=== PATIENT | female | born 1945 | race Caucasian/White ===

== ENCOUNTER → 2020-07-07 15:04 | Outpatient (BNVA) | payer MEDICARE, SELFPAY | PROVIDERS: PCP Internal Medicine; Referring Provider Internal Medicine; Visit Provider Internal Medicine | DX: I26.99 Other pulmonary embolism without acute cor pulmonale (principal); Z51.81 Encounter for therapeutic drug level monitoring; Z79.01 Long term (current) use of anticoagulants | CPT/HCPCS: 85610; 99211 ==

== ENCOUNTER → 2020-07-14 12:13 | Outpatient (BNVA) | payer MEDICARE, SELFPAY | PROVIDERS: Visit Provider Internal Medicine | DX: I26.99 Other pulmonary embolism without acute cor pulmonale (principal); Z51.81 Encounter for therapeutic drug level monitoring; Z79.01 Long term (current) use of anticoagulants | CPT/HCPCS: Q3014 ==

== ENCOUNTER → 2020-08-11 12:03 | Outpatient (BNVA) | payer MEDICARE, SELFPAY | PROVIDERS: PCP Internal Medicine; Referring Provider Internal Medicine; Visit Provider Internal Medicine | DX: Z76.89 Persons encountering health services in other specified circumstances (principal) ==

== ENCOUNTER → 2020-08-18 13:28 | Outpatient (BNVA) | payer MEDICARE, SELFPAY | PROVIDERS: PCP Internal Medicine; Visit Provider Internal Medicine | DX: I26.99 Other pulmonary embolism without acute cor pulmonale (principal); Z51.81 Encounter for therapeutic drug level monitoring; Z79.01 Long term (current) use of anticoagulants | CPT/HCPCS: Q3014 ==

== ENCOUNTER → 2020-08-30 13:39 | Outpatient (BNVA) | payer MEDICARE, SELFPAY | PROVIDERS: PCP Internal Medicine; Visit Provider Internal Medicine | DX: I26.99 Other pulmonary embolism without acute cor pulmonale (principal); Z51.81 Encounter for therapeutic drug level monitoring; Z79.01 Long term (current) use of anticoagulants | CPT/HCPCS: Q3014 ==

== ENCOUNTER → 2020-09-08 13:20 | Outpatient (BNVA) | payer MEDICARE, SELFPAY | PROVIDERS: PCP Internal Medicine; Visit Provider Internal Medicine | DX: Z76.89 Persons encountering health services in other specified circumstances (principal) ==

== ENCOUNTER → 2020-09-15 12:20 | Outpatient (BNVA) | payer MEDICARE, SELFPAY | PROVIDERS: PCP Internal Medicine; Visit Provider Internal Medicine | DX: Z76.89 Persons encountering health services in other specified circumstances (principal) ==

== ENCOUNTER → 2020-09-22 13:15 | Outpatient (BNVA) | payer MEDICARE, SELFPAY | PROVIDERS: PCP Internal Medicine; Visit Provider Internal Medicine | DX: Z76.89 Persons encountering health services in other specified circumstances (principal) ==

== ENCOUNTER → 2020-10-03 12:44 | Outpatient (BNVA) | payer MEDICARE, SELFPAY | PROVIDERS: PCP Internal Medicine; Visit Provider Internal Medicine | DX: Z76.89 Persons encountering health services in other specified circumstances (principal) ==

== ENCOUNTER → 2020-10-12 12:15 | Outpatient (BNVA) | payer MEDICARE, SELFPAY | PROVIDERS: PCP Internal Medicine; Visit Provider Internal Medicine | DX: Z13.89 Encounter for screening for other disorder (principal) | CPT/HCPCS: Q3014 ==

== ENCOUNTER → 2020-10-18 15:21 | Outpatient (BNVA) | payer MEDICARE, SELFPAY | PROVIDERS: PCP Internal Medicine; Visit Provider Internal Medicine | DX: I26.99 Other pulmonary embolism without acute cor pulmonale (principal); Z79.01 Long term (current) use of anticoagulants; Z51.81 Encounter for therapeutic drug level monitoring | CPT/HCPCS: Q3014 ==

== ENCOUNTER 2020-10-19 10:59 | Outpatient (REF) | payer MEDICARE, SELFPAY ==
--- NOTE | 2020-10-19 11:48 | XR_ITS ---
EXAMINATION: XR ABDOMEN KUB CLINICAL INDICATION: Urinary tract infection COMPARISON: None TECHNIQUE: AP view of the abdomen. FINDINGS: The bowel gas pattern is normal with no evidence of ileus or obstruction. There is a moderate stool burden present throughout the colon. Multiple phleboliths are seen about the pelvis. No definite calculi seen overlying the region of the kidneys or ureters is noted. Psoas margins intact. There is partial sacralization left side of L5. XR/XR KUB IMPRESSION: No definite renal or ureteral calculi identified.
[2020-10-19 12:16] LABS: MANUAL DIFF FLAG NO
[2020-10-19 12:26] LABS: Basophils Percent Auto 0.7 % (0-2); Eosinophils Absolute Auto 0.3 X10*3/uL (0.0-0.4); Eosinophils Percent Auto 4.7 % (0-4); Hematocrit 40.2 % (37-47); Hemoglobin 13.2 g/dl (12.0-16.0); Imm Gran Abs Auto 0.02 X10*3/uL (0.00-0.03); Imm Gran Pct Auto 0.3 % (0.0-0.4); Lymphocytes Absolute Auto 1.9 X10*3/uL (1.2-4.9); Lymphocytes Percent Auto 31.2 % (20-40); Mean Corpuscular HGB Conc 32.8 g/dl (31.0-35.0); Mean Corpuscular Hemoglobin 30.4 pg (27.0-33.0); Mean Corpuscular Volume 92.6 fL (80-98); Mean Platelet Volume 10.8 fL (9.4-12.3); Monocytes Absolute Auto 0.6 X10*3/uL (0.1-1.2); Monocytes Percent Auto 10.4 % (2-11); Neutrophils Absolute Auto 3.1 X10*3/uL (2.0-8.3); Neutrophils Percent Auto 52.7 % (45-73); Platelet Count 368 X10*3/uL (160-400); Red Blood Count 4.34 X10*6/uL (4.20-5.50); Red Cell Distribution Width 13.2 % (11.0-16.0)
[2020-10-19 12:54] LABS: Glucose Urine UA NEG (NEG); Leukocyte Esterase Urine NEG (NEG); Nitrite Urine NEG (NEG); PH 7.5 (5.0-8.0); Specific Gravity - Urine 1.015 (1.005-1.025); Urine Blood NEG (NEG); Urine Ketones NEG (NEG); Urine Protein NEG (NEG-TRACE)
[2020-10-19 13:01] LABS: Alanine Aminotransferase 27 U/L (0-31); Albumin Level 4.1 g/dL (3.5-5.0); Alkaline Phosphatase 68 U/L (39-117); Anion Gap 11 (12-20); Aspartate Amino Transferase 31 U/L (5-31); Bilirubin Total 0.4 mg/dL (0.0-1.0); Blood Urea Nitrogen 15 mg/dL (9-16); Calcium 9.2 mg/dL (8.4-10.2); Carbon Dioxide 29 mmol/L (22-29); Chloride 105 mmol/L (96-108); Cholesterol 204 mg/dL; Estimated Glomerular Filt Rate > 60; Glucose Random 98 mg/dL (60-115); HDL Cholesterol 72 mg/dL; LDL Cholesterol Calculated 116 mg/dl; Potassium 4.4 mmol/l (3.3-5.1); Sodium 141 mmol/L (135-145); Triglycerides 80 mg/dL
[2020-10-19 13:06] LABS: Appearance Urine CLEAR; Color Urine YELLOW
[2020-10-19 13:24] LABS: Free T4 (Free Thyroxine) 0.85 ng/dL (0.71-1.85); Thyroid Stimulating Hormone 1.38 uIU/mL (0.32-4.0); Vitamin D 25-OH Total 50.1 ng/mL (>30)
[2020-10-19 13:26] LABS: RBC Urine 0-2 /HPF (0); WBC Urine 0-2 /HPF (0-4)
[2020-10-19 13:27] LABS: Mucus Urine TRACE /LPF; Squamous Epithelial Cell Urine TRACE /LPF
[2020-10-19 13:45] LABS: Folate > 20.0 ng/mL (> or = 4.0); Vitamin B12 832 pg/mL (200-900)
== END 2020-10-19 11:00 | disposition home or self-care (01) ==
LOC: HO.LAB 10:59
PROVIDERS: PCP Internal Medicine; Visit Provider Internal Medicine
DX: N39.0 Urinary tract infection, site not specified (principal); E78.00 Pure hypercholesterolemia, unspecified
CPT/HCPCS: 36415; 74018; 80053; 80061; 81001; 82306; 82607; 82746; 84439; 84443; 85025; 87086

== ENCOUNTER → 2020-10-27 11:52 | Outpatient (BNVA) | payer MEDICARE, SELFPAY | PROVIDERS: PCP Internal Medicine; Visit Provider Internal Medicine ==

== ENCOUNTER → 2020-11-03 14:08 | Outpatient (BNVA) | payer MEDICARE, SELFPAY | PROVIDERS: PCP Internal Medicine; Visit Provider Internal Medicine ==

== ENCOUNTER → 2020-11-10 11:49 | Outpatient (BNVA) | payer MEDICARE, SELFPAY | PROVIDERS: PCP Internal Medicine; Visit Provider Internal Medicine ==

== ENCOUNTER → 2020-11-17 12:44 | Outpatient (BNVA) | payer MEDICARE, SELFPAY | PROVIDERS: PCP Internal Medicine; Visit Provider Internal Medicine ==

== ENCOUNTER → 2020-11-24 12:09 | Outpatient (BNVA) | payer MEDICARE, SELFPAY | PROVIDERS: PCP Internal Medicine; Visit Provider Internal Medicine ==

== ENCOUNTER → 2020-12-01 13:51 | Outpatient (BNVA) | payer MEDICARE, SELFPAY | PROVIDERS: PCP Internal Medicine; Visit Provider Internal Medicine ==

== ENCOUNTER → 2020-12-08 12:01 | Outpatient (BNVA) | payer MEDICARE, SELFPAY | PROVIDERS: PCP Internal Medicine; Visit Provider Internal Medicine ==

== ENCOUNTER → 2020-12-15 11:47 | Outpatient (BNVA) | payer MEDICARE, SELFPAY | PROVIDERS: PCP Internal Medicine; Visit Provider Internal Medicine ==

== ENCOUNTER → 2020-12-22 14:17 | Outpatient (BNVA) | payer MEDICARE, SELFPAY | PROVIDERS: PCP Internal Medicine; Visit Provider Internal Medicine ==

== ENCOUNTER → 2020-12-26 13:56 | Outpatient (REF) | payer MEDICARE, SELFPAY | LOC: HO.SL 13:56 | PROVIDERS: Visit Provider Internal Medicine | DX: G47.33 Obstructive sleep apnea (adult) (pediatric) (principal) | CPT/HCPCS: 95806 ==

== ENCOUNTER → 2020-12-29 11:43 | Outpatient (BNVA) | payer MEDICARE, SELFPAY | PROVIDERS: PCP Internal Medicine; Visit Provider Internal Medicine ==

== ENCOUNTER → 2021-01-05 11:26 | Outpatient (BNVA) | payer MEDICARE, SELFPAY | PROVIDERS: PCP Internal Medicine; Visit Provider Internal Medicine ==

== ENCOUNTER → 2021-01-12 13:50 | Outpatient (BNVA) | payer MEDICARE, SELFPAY | PROVIDERS: PCP Internal Medicine; Visit Provider Internal Medicine ==

== ENCOUNTER → 2021-01-19 14:54 | Outpatient (BNVA) | payer MEDICARE, SELFPAY | PROVIDERS: PCP Internal Medicine; Visit Provider Internal Medicine ==

== ENCOUNTER → 2021-01-26 12:05 | Outpatient (BNVA) | payer MEDICARE, SELFPAY | PROVIDERS: PCP Internal Medicine; Visit Provider Internal Medicine ==

== ENCOUNTER → 2021-02-02 11:36 | Outpatient (BNVA) | payer MEDICARE, SELFPAY | PROVIDERS: PCP Internal Medicine; Visit Provider Internal Medicine ==

== ENCOUNTER → 2021-02-09 12:20 | Outpatient (BNVA) | payer MEDICARE, SELFPAY | PROVIDERS: PCP Internal Medicine; Visit Provider Internal Medicine | DX: I26.99 Other pulmonary embolism without acute cor pulmonale (principal); Z79.01 Long term (current) use of anticoagulants; Z51.81 Encounter for therapeutic drug level monitoring | CPT/HCPCS: 99211 ==

== ENCOUNTER → 2021-02-16 12:52 | Outpatient (BNVA) | payer MEDICARE, SELFPAY | PROVIDERS: PCP Internal Medicine; Visit Provider Internal Medicine ==

== ENCOUNTER → 2021-02-23 12:04 | Outpatient (BNVA) | payer MEDICARE, SELFPAY | PROVIDERS: PCP Internal Medicine; Visit Provider Internal Medicine ==

== ENCOUNTER → 2021-03-02 13:29 | Outpatient (BNVA) | payer MEDICARE, SELFPAY | PROVIDERS: PCP Internal Medicine; Visit Provider Internal Medicine ==

== ENCOUNTER → 2021-03-09 13:08 | Outpatient (BNVA) | payer MEDICARE, SELFPAY | PROVIDERS: PCP Internal Medicine; Visit Provider Internal Medicine ==

== ENCOUNTER → 2021-03-16 11:41 | Outpatient (BNVA) | payer MEDICARE, SELFPAY | PROVIDERS: PCP Internal Medicine; Visit Provider Internal Medicine ==

== ENCOUNTER → 2021-03-23 10:24 | Outpatient (BNVA) | payer MEDICARE, SELFPAY | PROVIDERS: PCP Internal Medicine; Visit Provider Internal Medicine ==

== ENCOUNTER → 2021-03-30 10:20 | Outpatient (BNVA) | payer MEDICARE, SELFPAY | PROVIDERS: PCP Internal Medicine; Visit Provider Internal Medicine ==

== ENCOUNTER → 2021-04-06 11:34 | Outpatient (BNVA) | payer MEDICARE, SELFPAY | PROVIDERS: PCP Internal Medicine; Visit Provider Internal Medicine ==

== ENCOUNTER → 2021-04-13 16:17 | Outpatient (BNVA) | payer MEDICARE, SELFPAY | PROVIDERS: PCP Internal Medicine; Visit Provider Internal Medicine ==

== ENCOUNTER → 2021-04-20 12:01 | Outpatient (BNVA) | payer MEDICARE, SELFPAY | PROVIDERS: PCP Internal Medicine; Visit Provider Internal Medicine ==

== ENCOUNTER → 2021-04-27 13:41 | Outpatient (BNVA) | payer MEDICARE, SELFPAY | PROVIDERS: PCP Internal Medicine; Visit Provider Internal Medicine ==

== ENCOUNTER → 2021-05-04 11:26 | Outpatient (BNVA) | payer MEDICARE, SELFPAY | PROVIDERS: PCP Internal Medicine; Visit Provider Internal Medicine ==

== ENCOUNTER 2021-05-10 16:25 | Outpatient (REF) | payer MEDICARE, SELFPAY ==
--- NOTE | ~2021-05-10 | XR_ITS ---
EXAMINATION: XR CHEST CLINICAL INFORMATION: Cough COMPARISON: June 09, 2008 TECHNIQUE: 2 views of the chest were obtained. FINDINGS: There is again noted be a region of disease within the lingula which appears be related to scarring and was seen back on study of June 09, 2008. There is a nodular density at the left cardiophrenic border which may represent an acute region of disease as well. There is also a portion of the right heart border obscured by density which appears to be within the right middle lobe. Heart normal size. No evidence of pulmonary edema. No pneumothorax or pleural effusion. There is a left C7 cervical rib. XR/XR chest 2V IMPRESSION: Chronic region of density within the lingula as well as what appears to be a new region of density at the left cardiophrenic angle as well as density within the right middle lobe which may be on the basis of atelectasis or pneumonitis.
[2021-05-10 17:14] LABS: MANUAL DIFF FLAG NO
[2021-05-10 17:34] LABS: Basophils Percent Auto 0.4 % (0-2); Eosinophils Absolute Auto 0.1 X10*3/uL (0.0-0.4); Eosinophils Percent Auto 0.9 % (0-4); Hematocrit 38.8 % (37-47); Hemoglobin 12.7 g/dl (12.0-16.0); Imm Gran Abs Auto 0.04 X10*3/uL (0.00-0.03); Imm Gran Pct Auto 0.4 % (0.0-0.4); Lymphocytes Absolute Auto 1.3 X10*3/uL (1.2-4.9); Lymphocytes Percent Auto 12.4 % (20-40); Mean Corpuscular HGB Conc 32.7 g/dl (31.0-35.0); Mean Corpuscular Hemoglobin 30.2 pg (27.0-33.0); Mean Corpuscular Volume 92.2 fL (80-98); Monocytes Absolute Auto 1.2 X10*3/uL (0.1-1.2); Monocytes Percent Auto 11.7 % (2-11); Neutrophils Absolute Auto 7.6 X10*3/uL (2.0-8.3); Neutrophils Percent Auto 74.2 % (45-73); Platelet Count 300 X10*3/uL (160-400); Red Blood Count 4.21 X10*6/uL (4.20-5.50); Red Cell Distribution Width 14.3 % (11.0-16.0); White Blood Count 10.3 X10*3/uL (4.8-10.8)
[2021-05-10 17:42] LABS: Alanine Aminotransferase 28 U/L (0-31); Albumin Level 4.1 g/dL (3.5-5.0); Alkaline Phosphatase 70 U/L (39-117); Anion Gap 11 (12-20); Aspartate Amino Transferase 26 U/L (5-31); Bilirubin Total 0.4 mg/dL (0.0-1.0); Blood Urea Nitrogen 13 mg/dL (9-16); Carbon Dioxide 29 mmol/L (22-29); Chloride 104 mmol/L (96-108); Estimated Glomerular Filt Rate > 60; Glucose Random 102 mg/dL (60-115); Potassium 3.6 mmol/L (3.3-5.1); Sodium 140 mmol/L (135-145); Total Protein 6.8 g/dL (6.5-8.0)
== END 2021-05-10 16:26 | disposition home or self-care (01) ==
LOC: HO.XRAY 16:25
PROVIDERS: PCP Internal Medicine; Visit Provider Nurse Practitioner Family
DX: R05 Cough (principal)
CPT/HCPCS: 36415; 71046; 80053; 85025

== ENCOUNTER → 2021-05-11 12:19 | Outpatient (BNVA) | payer MEDICARE, SELFPAY | PROVIDERS: PCP Internal Medicine; Visit Provider Internal Medicine | DX: I26.99 Other pulmonary embolism without acute cor pulmonale (principal) | CPT/HCPCS: Q3014 ==

== ENCOUNTER 2021-05-12 13:35 | Outpatient (REF) | payer MEDICARE, SELFPAY | END 2021-05-12 13:36 | disposition home or self-care (01) | LOC: HO.LAB 13:35 | PROVIDERS: PCP Internal Medicine; Visit Provider Internal Medicine | DX: Z20.822 Contact with and (suspected) exposure to COVID-19 (principal) | CPT/HCPCS: C9803; U0003; U0005 ==

== ENCOUNTER → 2021-05-15 13:47 | Outpatient (BNVA) | payer MEDICARE, SELFPAY | PROVIDERS: PCP Internal Medicine; Visit Provider Internal Medicine | DX: I26.99 Other pulmonary embolism without acute cor pulmonale (principal); Z79.01 Long term (current) use of anticoagulants; Z51.81 Encounter for therapeutic drug level monitoring | CPT/HCPCS: Q3014 ==

== ENCOUNTER → 2021-05-18 10:33 | Outpatient (BNVA) | payer MEDICARE, SELFPAY | PROVIDERS: PCP Internal Medicine; Visit Provider Internal Medicine | DX: I26.99 Other pulmonary embolism without acute cor pulmonale (principal) | CPT/HCPCS: Q3014 ==

== ENCOUNTER → 2021-05-25 11:18 | Outpatient (BNVA) | payer MEDICARE, SELFPAY | PROVIDERS: PCP Internal Medicine; Visit Provider Internal Medicine ==

== ENCOUNTER → 2021-06-01 11:40 | Outpatient (BNVA) | payer MEDICARE, SELFPAY | PROVIDERS: PCP Internal Medicine; Visit Provider Internal Medicine ==

== ENCOUNTER → 2021-06-08 12:01 | Outpatient (BNVA) | payer MEDICARE, SELFPAY | PROVIDERS: PCP Internal Medicine; Visit Provider Internal Medicine | DX: I26.99 Other pulmonary embolism without acute cor pulmonale (principal) | CPT/HCPCS: Q3014 ==

== ENCOUNTER → 2021-06-15 11:19 | Outpatient (BNVA) | payer MEDICARE, SELFPAY | PROVIDERS: PCP Internal Medicine; Visit Provider Internal Medicine ==

== ENCOUNTER → 2021-06-22 14:43 | Outpatient (BNVA) | payer MEDICARE, SELFPAY | PROVIDERS: PCP Internal Medicine; Visit Provider Internal Medicine ==

== ENCOUNTER → 2021-06-29 11:51 | Outpatient (BNVA) | payer MEDICARE, SELFPAY | PROVIDERS: PCP Internal Medicine; Visit Provider Internal Medicine ==

== ENCOUNTER → 2021-07-06 13:00 | Outpatient (BNVA) | payer MEDICARE, SELFPAY | PROVIDERS: PCP Internal Medicine; Visit Provider Internal Medicine ==

== ENCOUNTER → 2021-07-13 12:04 | Outpatient (BNVA) | payer MEDICARE, SELFPAY | PROVIDERS: PCP Internal Medicine; Visit Provider Internal Medicine | DX: I26.99 Other pulmonary embolism without acute cor pulmonale (principal); Z51.81 Encounter for therapeutic drug level monitoring; Z79.01 Long term (current) use of anticoagulants | CPT/HCPCS: 99211 ==

== ENCOUNTER → 2021-07-20 13:52 | Outpatient (BNVA) | payer MEDICARE, SELFPAY | PROVIDERS: PCP Internal Medicine; Visit Provider Internal Medicine ==

== ENCOUNTER → 2021-07-27 15:32 | Outpatient (BNVA) | payer MEDICARE, SELFPAY | PROVIDERS: PCP Internal Medicine; Visit Provider Internal Medicine | DX: I26.99 Other pulmonary embolism without acute cor pulmonale (principal) | CPT/HCPCS: Q3014 ==

== ENCOUNTER → 2021-08-03 14:59 | Outpatient (BNVA) | payer MEDICARE, SELFPAY | PROVIDERS: PCP Internal Medicine; Visit Provider Internal Medicine ==

== ENCOUNTER 2021-08-09 10:58 | Outpatient (REF) | payer MEDICARE, SELFPAY ==
[2021-08-09 11:23] LABS: MANUAL DIFF FLAG NO
[2021-08-09 11:53] LABS: Basophils Absolute Auto 0.1 X10*3/uL (0.0-0.2); Basophils Percent Auto 0.9 % (0-2); Eosinophils Absolute Auto 0.3 X10*3/uL (0.0-0.4); Eosinophils Percent Auto 4.8 % (0-4); Hematocrit 42.3 % (37.0-47.0); Hemoglobin 13.8 g/dl (12.0-16.0); Imm Gran Abs Auto 0.02 X10*3/uL (0.00-0.03); Imm Gran Pct Auto 0.4 % (0.0-0.4); Lymphocytes Absolute Auto 1.6 X10*3/uL (1.2-4.9); Lymphocytes Percent Auto 29.8 % (20-40); Mean Corpuscular HGB Conc 32.6 g/dl (31.0-35.0); Mean Corpuscular Hemoglobin 30.3 pg (27.0-33.0); Mean Corpuscular Volume 92.8 fL (80.0-98.0); Mean Platelet Volume 10.5 fL (9.4-12.3); Monocytes Absolute Auto 0.6 X10*3/uL (0.1-1.2); Monocytes Percent Auto 11.5 % (2-11); Neutrophils Absolute Auto 2.85 x10*3/uL (2.0-8.3); Neutrophils Percent Auto 52.6 % (45-73); Platelet Count 373 X10*3/uL (160-400); Red Blood Count 4.56 X10*6/uL (4.20-5.50); Red Cell Distribution Width 13.9 % (11.0-16.0); White Blood Count 5.4 X10*3/uL (4.8-10.8)
[2021-08-09 12:51] LABS: Alanine Aminotransferase 25 U/L (0-31); Albumin Level 4.2 g/dL (3.5-5.0); Alkaline Phosphatase 61 U/L (39-117); Anion Gap 13 (12-20); Aspartate Amino Transferase 26 U/L (5-31); Bilirubin Total 0.3 mg/dL (0.0-1.0); Blood Urea Nitrogen 16 mg/dL (9-16); Calcium 9.6 mg/dL (8.4-10.2); Carbon Dioxide 27 mmol/L (22-29); Chloride 108 mmol/L (96-108); Cholesterol 229 mg/dL; Estimated Glomerular Filt Rate > 60; Glucose Random 100 mg/dL (60-115); HDL Cholesterol 71 mg/dL; LDL Cholesterol Calculated 144 mg/dl; Potassium 4.6 mmol/L (3.3-5.1); Sodium 143 mmol/L (135-145); Total Protein 6.9 g/dL (6.5-8.0); Triglycerides 73 mg/dL
[2021-08-09 12:55] LABS: Free T4 (Free Thyroxine) 0.88 ng/dL (0.71-1.85); Thyroid Stimulating Hormone 1.63 uIU/mL (0.32-4.0); Vitamin D 25-OH Total 52.7 ng/mL (>30)
[2021-08-09 13:28] LABS: Folate > 20.0 ng/mL (> or = 4.0); Vitamin B12 786 pg/mL (200-900)
== END 2021-08-09 10:59 | disposition home or self-care (01) ==
LOC: HO.LAB 10:58
PROVIDERS: PCP Internal Medicine; Visit Provider Internal Medicine
DX: E78.00 Pure hypercholesterolemia, unspecified (principal)
CPT/HCPCS: 36415; 80053; 80061; 82306; 82607; 82746; 84439; 84443; 85025

== ENCOUNTER → 2021-08-10 14:11 | Outpatient (BNVA) | payer MEDICARE, SELFPAY | PROVIDERS: PCP Internal Medicine; Visit Provider Internal Medicine | DX: I26.99 Other pulmonary embolism without acute cor pulmonale (principal); Z51.81 Encounter for therapeutic drug level monitoring; Z79.01 Long term (current) use of anticoagulants | CPT/HCPCS: 85610; 99211 ==

== ENCOUNTER → 2021-08-17 13:43 | Outpatient (BNVA) | payer MEDICARE, SELFPAY | PROVIDERS: PCP Internal Medicine; Visit Provider Internal Medicine ==

== ENCOUNTER → 2021-08-24 15:28 | Outpatient (BNVA) | payer MEDICARE, SELFPAY | PROVIDERS: PCP Internal Medicine; Visit Provider Internal Medicine ==

== ENCOUNTER → 2021-08-29 13:29 | Outpatient (BNVA) | payer MEDICARE, SELFPAY | PROVIDERS: PCP Internal Medicine; Visit Provider Internal Medicine ==

== ENCOUNTER → 2021-09-07 11:50 | Outpatient (BNVA) | payer MEDICARE, SELFPAY | PROVIDERS: PCP Internal Medicine; Visit Provider Internal Medicine ==

== ENCOUNTER → 2021-09-15 11:59 | Outpatient (BNVA) | payer MEDICARE, SELFPAY | PROVIDERS: PCP Internal Medicine; Visit Provider Internal Medicine ==

== ENCOUNTER → 2021-09-21 11:50 | Outpatient (BNVA) | payer MEDICARE, SELFPAY | PROVIDERS: PCP Internal Medicine; Visit Provider Internal Medicine ==

== ENCOUNTER → 2021-09-28 13:24 | Outpatient (BNVA) | payer MEDICARE, SELFPAY | PROVIDERS: PCP Internal Medicine; Visit Provider Internal Medicine | DX: I26.99 Other pulmonary embolism without acute cor pulmonale (principal) | CPT/HCPCS: Q3014 ==

== ENCOUNTER → 2021-10-05 14:48 | Outpatient (BNVA) | payer MEDICARE, SELFPAY | PROVIDERS: PCP Internal Medicine; Visit Provider Internal Medicine ==

== ENCOUNTER → 2021-10-12 13:15 | Outpatient (BNVA) | payer MEDICARE, SELFPAY | PROVIDERS: PCP Internal Medicine; Visit Provider Internal Medicine ==

== ENCOUNTER → 2021-10-19 13:54 | Outpatient (BNVA) | payer MEDICARE, SELFPAY | PROVIDERS: PCP Internal Medicine; Visit Provider Internal Medicine ==

== ENCOUNTER → 2021-10-26 12:06 | Outpatient (BNVA) | payer MEDICARE, SELFPAY | PROVIDERS: PCP Internal Medicine; Visit Provider Internal Medicine ==

== ENCOUNTER → 2021-11-02 11:51 | Outpatient (BNVA) | payer MEDICARE, SELFPAY | PROVIDERS: PCP Internal Medicine; Visit Provider Internal Medicine ==

== ENCOUNTER → 2021-11-09 10:52 | Outpatient (BNVA) | payer MEDICARE, SELFPAY | PROVIDERS: PCP Internal Medicine; Visit Provider Internal Medicine | DX: Z13.89 Encounter for screening for other disorder (principal) ==

== ENCOUNTER → 2021-11-16 11:51 | Outpatient (BNVA) | payer MEDICARE, SELFPAY | PROVIDERS: PCP Internal Medicine; Visit Provider Internal Medicine | DX: Z13.89 Encounter for screening for other disorder (principal) ==

== ENCOUNTER → 2021-11-23 15:18 | Outpatient (BNVA) | payer MEDICARE, SELFPAY | PROVIDERS: PCP Internal Medicine; Visit Provider Internal Medicine | DX: I26.99 Other pulmonary embolism without acute cor pulmonale (principal); Z51.81 Encounter for therapeutic drug level monitoring; Z79.01 Long term (current) use of anticoagulants | CPT/HCPCS: Q3014 ==

== ENCOUNTER → 2021-11-30 12:09 | Outpatient (BNVA) | payer MEDICARE, SELFPAY | PROVIDERS: PCP Internal Medicine; Visit Provider Internal Medicine | DX: Z13.89 Encounter for screening for other disorder (principal) ==

== ENCOUNTER → 2021-12-07 10:43 | Outpatient (BNVA) | payer MEDICARE, SELFPAY | PROVIDERS: PCP Internal Medicine; Visit Provider Internal Medicine | DX: Z13.89 Encounter for screening for other disorder (principal) ==

== ENCOUNTER → 2021-12-14 10:20 | Outpatient (BNVA) | payer MEDICARE, SELFPAY | PROVIDERS: PCP Internal Medicine; Visit Provider Internal Medicine | DX: Z13.89 Encounter for screening for other disorder (principal) ==

== ENCOUNTER → 2021-12-21 10:51 | Outpatient (BNVA) | payer MEDICARE, SELFPAY | PROVIDERS: PCP Internal Medicine; Visit Provider Internal Medicine | DX: I26.99 Other pulmonary embolism without acute cor pulmonale (principal); Z79.01 Long term (current) use of anticoagulants; Z51.81 Encounter for therapeutic drug level monitoring | CPT/HCPCS: Q3014 ==

== ENCOUNTER → 2021-12-28 11:25 | Outpatient (BNVA) | payer MEDICARE, SELFPAY | PROVIDERS: PCP Internal Medicine; Visit Provider Internal Medicine | DX: Z13.89 Encounter for screening for other disorder (principal) ==

== ENCOUNTER → 2022-01-04 10:56 | Outpatient (BNVA) | payer MEDICARE, SELFPAY | PROVIDERS: PCP Internal Medicine; Visit Provider Internal Medicine | DX: Z13.89 Encounter for screening for other disorder (principal) ==

== ENCOUNTER → 2022-01-11 12:10 | Outpatient (BNVA) | payer MEDICARE, SELFPAY | PROVIDERS: PCP Internal Medicine; Visit Provider Internal Medicine | DX: Z13.89 Encounter for screening for other disorder (principal) ==

== ENCOUNTER → 2022-01-18 10:54 | Outpatient (BNVA) | payer MEDICARE, SELFPAY | PROVIDERS: PCP Internal Medicine; Visit Provider Internal Medicine | DX: Z13.89 Encounter for screening for other disorder (principal) ==

== ENCOUNTER → 2022-01-25 14:26 | Outpatient (BNVA) | payer MEDICARE, SELFPAY | PROVIDERS: PCP Internal Medicine; Visit Provider Internal Medicine | DX: Z13.89 Encounter for screening for other disorder (principal) ==

== ENCOUNTER → 2022-02-01 12:00 | Outpatient (BNVA) | payer MEDICARE, SELFPAY | PROVIDERS: PCP Internal Medicine; Visit Provider Internal Medicine | DX: I26.99 Other pulmonary embolism without acute cor pulmonale (principal); Z79.01 Long term (current) use of anticoagulants; Z51.81 Encounter for therapeutic drug level monitoring | CPT/HCPCS: Q3014 ==

== ENCOUNTER → 2022-02-05 20:41 | Outpatient (REF) | payer MEDICARE, SELFPAY | LOC: HO.SL 20:41 | PROVIDERS: Visit Provider Internal Medicine Critical Care Medicine | DX: G47.33 Obstructive sleep apnea (adult) (pediatric) (principal) | CPT/HCPCS: 95810 ==

== ENCOUNTER → 2022-02-08 15:09 | Outpatient (BNVA) | payer MEDICARE, SELFPAY | PROVIDERS: PCP Internal Medicine; Visit Provider Internal Medicine | DX: Z13.89 Encounter for screening for other disorder (principal) ==

== ENCOUNTER → 2022-02-15 14:14 | Outpatient (BNVA) | payer MEDICARE, SELFPAY | PROVIDERS: PCP Internal Medicine; Visit Provider Internal Medicine | DX: I26.99 Other pulmonary embolism without acute cor pulmonale (principal); Z79.01 Long term (current) use of anticoagulants; Z51.81 Encounter for therapeutic drug level monitoring | CPT/HCPCS: Q3014 ==

== ENCOUNTER → 2022-02-22 11:51 | Outpatient (BNVA) | payer MEDICARE, SELFPAY | PROVIDERS: PCP Internal Medicine; Visit Provider Internal Medicine | DX: I26.99 Other pulmonary embolism without acute cor pulmonale (principal); Z79.01 Long term (current) use of anticoagulants; Z51.81 Encounter for therapeutic drug level monitoring | CPT/HCPCS: Q3014 ==

== ENCOUNTER → 2022-03-01 11:47 | Outpatient (BNVA) | payer MEDICARE, SELFPAY | PROVIDERS: PCP Internal Medicine; Visit Provider Internal Medicine | DX: Z79.01 Long term (current) use of anticoagulants (principal) ==

== ENCOUNTER → 2022-03-08 14:08 | Outpatient (BNVA) | payer MEDICARE, SELFPAY | PROVIDERS: PCP Internal Medicine; Visit Provider Internal Medicine | DX: Z79.01 Long term (current) use of anticoagulants (principal) ==

== ENCOUNTER → 2022-03-29 10:44 | Outpatient (BNVA) | payer MEDICARE, SELFPAY | PROVIDERS: PCP Internal Medicine; Visit Provider Internal Medicine | DX: I26.99 Other pulmonary embolism without acute cor pulmonale (principal); Z79.01 Long term (current) use of anticoagulants; Z51.81 Encounter for therapeutic drug level monitoring | CPT/HCPCS: Q3014 ==

== ENCOUNTER → 2022-05-31 15:22 | Outpatient (BNVA) | payer MEDICARE, SELFPAY | PROVIDERS: PCP Internal Medicine; Visit Provider Internal Medicine | DX: I26.99 Other pulmonary embolism without acute cor pulmonale (principal); Z79.01 Long term (current) use of anticoagulants; Z51.81 Encounter for therapeutic drug level monitoring | CPT/HCPCS: Q3014 ==

== ENCOUNTER → 2022-06-05 11:28 | Outpatient (BNVA) | payer MEDICARE, SELFPAY | PROVIDERS: PCP Internal Medicine; Visit Provider Internal Medicine | DX: I26.99 Other pulmonary embolism without acute cor pulmonale (principal); Z79.01 Long term (current) use of anticoagulants; Z51.81 Encounter for therapeutic drug level monitoring | CPT/HCPCS: 99211 ==

== ENCOUNTER 2022-08-01 10:25 | Outpatient (REF) | payer MEDICARE, SELFPAY ==
[2022-08-01 10:44] LABS: MANUAL DIFF FLAG NO
[2022-08-01 10:48] LABS: Basophils Absolute Auto 0.1 X10*3/uL (0.0-0.2); Basophils Percent Auto 0.8 % (0-2); Eosinophils Absolute Auto 0.3 X10*3/uL (0.0-0.4); Eosinophils Percent Auto 3.8 % (0-4); Hematocrit 40.5 % (37.0-47.0); Hemoglobin 13.3 g/dl (12.0-16.0); Imm Gran Abs Auto 0.02 X10*3/uL (0.00-0.03); Imm Gran Pct Auto 0.3 % (0.0-0.4); Lymphocytes Absolute Auto 1.6 X10*3/uL (1.2-4.9); Lymphocytes Percent Auto 23.8 % (20-40); Mean Corpuscular HGB Conc 32.8 g/dl (31.0-35.0); Mean Corpuscular Hemoglobin 29.9 pg (27.0-33.0); Mean Platelet Volume 10.3 fL (9.4-12.3); Monocytes Absolute Auto 0.7 X10*3/uL (0.1-1.2); Monocytes Percent Auto 10.8 % (2-11); Neutrophils Absolute Auto 3.9 x10*3/uL (2.0-8.3); Neutrophils Percent Auto 60.5 % (45-73); Platelet Count 338 X10*3/uL (160-400); Red Blood Count 4.45 X10*6/uL (4.20-5.50); Red Cell Distribution Width 13.9 % (11.0-16.0); White Blood Count 6.5 X10*3/uL (4.8-10.8)
[2022-08-01 11:18] LABS: B Type Natriuretic Peptide 37 pg/mL (<100)
[2022-08-01 11:23] LABS: Alanine Aminotransferase 26 U/L (0-31); Albumin Level 4.1 g/dL (3.5-5.0); Alkaline Phosphatase 68 U/L (39-117); Anion Gap 15 (12-20); Aspartate Amino Transferase 30 U/L (5-31); Bilirubin Total 0.3 mg/dL (0.0-1.0); Blood Urea Nitrogen 20 mg/dL (9-16); Calcium 9.4 mg/dL (8.4-10.2); Carbon Dioxide 26 mmol/L (22-29); Chloride 107 mmol/L (96-108); Cholesterol 213 mg/dL; Estimated Glomerular Filt Rate > 60; Glucose Random 98 mg/dL (60-115); HDL Cholesterol 80 mg/dL; LDL Cholesterol Calculated 123 mg/dl; Potassium 4.3 mmol/L (3.3-5.1); Sodium 144 mmol/L (135-145); Total Protein 6.7 g/dL (6.5-8.0); Triglycerides 54 mg/dL
[2022-08-01 11:46] LABS: Free T4 (Free Thyroxine) 0.97 ng/dL (0.71-1.85); Thyroid Stimulating Hormone 2.01 uIU/mL (0.32-4.0); Vitamin D 25-OH Total 56.1 ng/mL (>30)
[2022-08-01 13:21] LABS: Folate > 20.0 ng/mL (> or = 4.0); Vitamin B12 917 pg/mL (200-900)
== END 2022-08-01 10:26 | disposition home or self-care (01) ==
LOC: HO.LAB 10:25
PROVIDERS: PCP Internal Medicine; Visit Provider Internal Medicine
DX: E78.00 Pure hypercholesterolemia, unspecified (principal)
CPT/HCPCS: 36415; 80053; 80061; 82306; 82607; 82746; 83880; 84439; 84443; 85025

== ENCOUNTER → 2022-08-16 12:55 | Outpatient (BNVA) | payer MEDICARE, SELFPAY | PROVIDERS: PCP Internal Medicine; Visit Provider Internal Medicine | DX: I26.99 Other pulmonary embolism without acute cor pulmonale (principal); Z79.01 Long term (current) use of anticoagulants; Z51.81 Encounter for therapeutic drug level monitoring | CPT/HCPCS: 85610; 99211 ==

== ENCOUNTER 2022-08-19 09:57 | Emergency (ER) | payer MEDICARE, SELFPAY ==
--- NOTE | ~2022-08-19 | US_ITS ---
EXAMINATION: US VENOUS ULTRASOUND WITH DOPPLER LOWER EXTREMITY, LEFT CLINICAL INFORMATION: Left lower extremity pain. History of deep venous thrombosis. COMPARISON: Report of previous study 04/05/11 TECHNIQUE: Ultrasound of the deep veins is performed from the hip to the calf with compression sonography and color and pulse Doppler assessment. Spectral analysis with color-flow imaging is performed. FINDINGS: There is normal venous compression and respiratory variation and augmented flow. The visualized common femoral vein, superficial femoral vein, profunda femoral vein, popliteal vein, and the trifurcation region shows no evidence of deep venous thrombosis. There is no significant popliteal fossa cyst. There is an approximately 1.7 cm area of increased echogenicity in the superficial tissues between the skin and the muscles anteriorly in the left calf. This is in an area of painful lump. There is no internal color signal. This is a nonspecific finding but could be related to edema or trauma. This does not appear to represent an aggressive process. This should be managed on the basis of the physical exam and history. If the patient's symptoms persist, followup ultrasound in 5 days 7 days might be of value to exclude proximal propagation from a non-visualized calf vein. US/US venous duplex LE LT IMPRESSION: No DVT demonstrated in the left lower extremity.
[2022-08-19 10:05] VITALS: BP 139/99; PULSE 77; RESP 18; O2SAT 98; BMI 19.8
--- NOTE | 2022-08-19 10:54 | ED_ITS ---
HPI - Extremity Problem General Chief complaint: Extremity Problem Stated complaint: DVT in L leg? Time Seen by Provider: 08/19/22 10:40 Source: patient Mode of arrival: ambulatory Limitations: no limitations History of Present Illness HPI Narrative: Patient is a 77-year-old female who presents to emergency department for evaluation of left leg pain. She states approximately 1 week ago she slightly bumped the leg against some common she developed significant swelling and bruising anteriorly over the pacheco. This was overall resolving. Two days ago she was walking in the grocery store when she developed severe pain to the left leg, and had significant tenderness when palpating over the area she previously injury. She states that she was able to go home, and rest. The pain has been constant since then, though it is overall improving. She is on Coumadin due to past history of DVT/PE, she reports checking her INR at home, with therapeutic levels, today INR was 2.0. She has been compliant with her medications. She however has concern for DVT as the pain that she experience was similar to prior pain experienced a DVT before she was on anticoagulation. Denies numbness or tingling to the extremity, denies cold sensation to the foot, denies any swelling of the calf or leg. Denies dizziness, lightheadedness, chest pain, palpitations, shortness of breath, difficulty breathing. Related Data Home Medications Medication Instructions Recorded Confirmed fluticasone 250 mcg-salmeterol 50 1 inh inhalation BID 10/17/20 03/29/22 mcg/dose blistr powdr for inhalation (Advair Diskus) montelukast 10 mg tablet 10 mg PO DAILY 10/17/20 03/29/22 (Singulair) levalbuterol HCl 0.63 mg/3 mL 0.63 mg PO Q4H PRN wheezing 05/15/21 03/29/22 solution for nebulization sumatriptan succinate 100 mg tablet 100 mg PO DAILY PRN headache 02/22/22 03/29/22 levalbuterol tartrate 45 2 puff inhalation Q4-6H 03/29/22 03/29/22 mcg/actuation aerosol inhaler nystatin 100,000 unit/mL oral 5 ml PO BID PRN 08/16/22 08/16/22 suspension Previous Rx's Medication Instructions Recorded risedronate 150 mg tablet (Actonel) See Rx Instructions PO .COMPLEX 08/18/20 PRN osteoporosis #1 tab omeprazole 20 mg capsule,delayed 20 mg PO DAILY #90 caps 08/14/21 release rosuvastatin 10 mg tablet 10 mg PO DAILY #90 tabs 08/14/21 quetiapine 25 mg tablet (Seroquel) 25 mg PO BEDTIME 90 days #90 tabs 03/06/22 warfarin 1 mg tablet (Jantoven) 1 mg PO DAILY #90 tabs 06/12/22 Allergies Allergy/AdvReac Type Severity Reaction Status Date / Time azithromycin Allergy Unknown fever Verified 08/16/22 12:59 levofloxacin Allergy Unknown LE pain Verified 08/16/22 12:59 and weakness nitrofurantoin Allergy Unknown fever,park Verified 08/16/22 12:59 Review of Systems Review of Systems: Constitutional: No weight loss, fever, chills, weakness or fatigue. Skin: No rash or itching. Cardiovascular: No chest pain, chest pressure or chest discomfort. No palpitations or pedal edema. Respiratory: No shortness of breath, cough or sputum production. Gastrointestinal: No anorexia, nausea, vomiting or diarrhea. No abdominal pain or blood in stool. Genitourinary: No burning micturition. No urinary frequency or incontinence. Musculoskeletal: No muscle pain, back pain, joint pain or stiffness. Positive left leg pain as noted in HPI Psychiatric: No depression or anxiety. Yes all other systems are reviewed and are negative [facility] Past Medical History Attestation statement: The following information was validated with the patient. Source: old records reviewed Medical History Bronchiectasis COPD (chronic obstructive pulmonary disease) Cough History of Pseudomonas pneumonia History of pulmonary embolism Hypercholesterolemia Migraine Obstructive sleep apnea Thyroid nodule Surgical History History of bronchoscopy History of cataract surgery History of colonoscopy Family History Family History Father No problems noted. Mother No problems noted. Sister No problems noted. Son No problems noted. Family/Other Heart disease Social History Social History Housing: House Alcohol intake: former Patient Tobacco Use Status: Never used Tobacco e-Cigarette/Vaping Use: Never Used Second Hand Smoke Exposure: Yes Advance Directives: Yes Advance Directives Information Provided: Yes Advance Directives on File: No service: No Current occupational status: retired Cognitive needs: No Hearing needs: No Vision needs: Yes Physical Exam Vital Signs: Vital Signs: Last Vital Signs Pulse 77 08/19/22 10:05 Resp 18 08/19/22 10:05 BP 139/99 H 08/19/22 10:05 Pulse Ox 98 08/19/22 10:05 O2 Del Method 08/19/22 10:05 BMI result Body Mass Index 19.8 Appearance: Alert.?Oriented to person, place and time. No acute distress.?Normal affect. Eyes: Pupils equal, round and reactive to light.? ENT: Pharynx normal.?? Neck: Normal inspection.? Neck supple.?? CVS: Heart sounds normal. Normal heart rate and rhythm.? Pulses normal.?? Respiratory: No respiratory distress.? Lung sounds clear to auscultation bilaterally?? Abdomen: Soft and non-tender. Normoactive bowel sounds. No pulsatile mass.?? Skin: Skin warm and dry.? Normal skin color.? Extremities: No lower extremity edema.? No calf ttp. Palpable lump to the left anterior leg, just lateral to the tibia, inferior to the knee. Neuro: Moves all extremities spontaneously. Sensation intact bilaterally. No focal neuro deficits. Ambulates with normal steady gait. Course Course Course Narrative: Area of palpable tenderness to leg seems most consistent with likely a resolving hematoma given history, from the some degree of superficial phlebitis. There is no erythema, warmth, swelling, palpable deformity. She is anticoagulated with a reported therapeutic INR, declining to have labs obtained while in the emergency department. Feels strongly about having ultrasound to exclude DVT, I did discuss significant low clinical suspicion for this, given no erythema, warmth, significant pain at his time, tachycardia, and she currently anticoagulated. However, she feels strongly about having ultrasound obtained at this time. Reevaluation(s) Reevaluation #1: Ultrasound reveals no evidence of DVT, I explained these findings to patient. There is an area of echogenicity in the superficial tissues corresponding to the painful lump, needed related to edema or trauma. Suspect resolving hematoma. Advised outpatient follow-up with her primary care provider within the next week. Reviewed worsening signs symptoms to return back to emergency department for. All questions were answered. Patient was discharged home in stable condition. MDM - Extremity (Nontraumatic) Medical Records Attestation: I reviewed the patient's medical records. Lab Data Attestation: I reviewed the patient's lab results. Imaging Data Venous US: Radiologist's impression: US/US venous duplex LE LT IMPRESSION: No DVT demonstrated in the left lower extremity. Discharge Plan Discharge Clinical Impression: Hematoma Patient Disposition: Home, Self-Care Instructions: Bone Bruise (ED) Additional Instructions: As we discussed the ultrasound is not reveal any blood clot to your leg. This is likely a resolving or improving hematoma, which can leave a palpable lump it can be painful and tender as he expressed. Please contact your primary care provider and arrange for a follow-up visit. May return back to emergency department any new or worsening symptoms or concerns. Prescriptions: No Action risedronate [Actonel] 150 mg tablet See Rx Instructions PO .COMPLEX PRN (Reason: osteoporosis) Qty: 1 0RF Rx Instructions: PO once a month PRN; rx Dr. Quiroz quetiapine [Seroquel] 25 mg tablet 25 mg PO BEDTIME 90 Days Qty: 90 3RF warfarin [Jantoven] 1 mg tablet 1 mg PO DAILY Qty: 90 3RF Protocol: Dose Management Condition: Saturday (Week One) Dose/Route: 3 mg Instruction: 3 x 1 mg tablets Condition: Saturday Dose/Route: 2 mg Instruction: 2 x 1 mg tablets Condition: Saturday Dose/Route: 3 mg Instruction: 3 x 1 mg tablets Condition: Saturday Dose/Route: 3 mg Instruction: 3 x 1 mg tablets Condition: Dose/Route: 3 mg Instruction: 3 x 1 mg tablets Condition: Saturday Dose/Route: 3 mg Instruction: 3 x 1 mg tablets Condition: Saturday Dose/Route: 3 mg Instruction: 3 x 1 mg tablets Condition: Saturday (Week Two) Dose/Route: 3 mg Instruction: 3 x 1 mg tablets Condition: Saturday Dose/Route: 2 mg Instruction: 2 x 1 mg tablets Condition: Saturday Dose/Route: 3 mg Instruction: 3 x 1 mg tablets Condition: Saturday Dose/Route: 3 mg Instruction: 3 x 1 mg tablets Condition: Dose/Route: 3 mg Instruction: 3 x 1 mg tablets Condition: Saturday Dose/Route: 3 mg Instruction: 3 x 1 mg tablets Condition: Saturday Dose/Route: 3 mg Instruction: 3 x 1 mg tablets Protocol Text: Adjustment Start Date: 08/16/22 INR Value: 2.4 INR Date: 08/16/22 Recheck Date: 08/23/22 Additional Instructions: cont reg dosing montelukast [Singulair] 10 mg tablet 10 mg PO DAILY fluticasone propion-salmeterol [Advair Diskus] 250-50 mcg/dose blister with device 1 inh inhalation BID omeprazole 20 mg capsule,delayed release(DR/EC) 20 mg PO DAILY Qty: 90 3RF rosuvastatin 10 mg tablet 10 mg PO DAILY Qty: 90 3RF levalbuterol HCl 0.63 mg/3 mL solution for nebulization 0.63 mg PO Q4H PRN (Reason: wheezing) nystatin 100,000 unit/mL suspension 5 ml PO BID PRN sumatriptan succinate 100 mg tablet 100 mg PO DAILY PRN (Reason: headache) levalbuterol tartrate 45 mcg/actuation HFA aerosol inhaler 2 puff inhalation Q4-6H Referrals: Po,Kelly Chacon MD [Primary Care Provider] - Interventions: ED Discharge Assessment Last Done: 08/19/22 14:48 Discharge Date/Time: 08/19/22 14:48
== END 2022-08-19 14:48 | disposition home or self-care (01) ==
PROVIDERS: Emergency Provider Emergency Medicine; PCP Internal Medicine
DX: S80.12XA Contusion of left lower leg, initial encounter (principal); R60.0 Localized edema; X58.XXXA Exposure to other specified factors, initial encounter; Y93.9 Activity, unspecified; Y92.9 Unspecified place or not applicable; Y99.9 Unspecified external cause status; Z79.899 Other long term (current) drug therapy
CPT/HCPCS: 93971; 99282; 99283

== ENCOUNTER → 2022-09-25 09:31 | Outpatient (BNVA) | payer MEDICARE, SELFPAY | PROVIDERS: PCP Internal Medicine; Visit Provider Internal Medicine | DX: Z79.01 Long term (current) use of anticoagulants (principal) ==

== ENCOUNTER → 2022-09-28 11:04 | Outpatient (BNVA) | payer MEDICARE, SELFPAY | PROVIDERS: PCP Internal Medicine; Visit Provider Internal Medicine | DX: Z79.01 Long term (current) use of anticoagulants (principal) ==

== ENCOUNTER → 2022-10-02 15:01 | Outpatient (BNVA) | payer MEDICARE, SELFPAY | PROVIDERS: PCP Internal Medicine; Visit Provider Internal Medicine | DX: Z79.01 Long term (current) use of anticoagulants (principal) ==

== ENCOUNTER → 2022-10-09 12:50 | Outpatient (BNVA) | payer MEDICARE, SELFPAY | PROVIDERS: PCP Internal Medicine; Visit Provider Internal Medicine | DX: Z79.01 Long term (current) use of anticoagulants (principal) ==

== ENCOUNTER → 2022-10-18 13:20 | Outpatient (BNVA) | payer MEDICARE, SELFPAY | PROVIDERS: PCP Internal Medicine; Visit Provider Internal Medicine | DX: Z79.01 Long term (current) use of anticoagulants (principal) ==

== ENCOUNTER → 2022-10-25 15:40 | Outpatient (BNVA) | payer MEDICARE, SELFPAY | PROVIDERS: PCP Internal Medicine; Visit Provider Internal Medicine | DX: Z79.01 Long term (current) use of anticoagulants (principal) ==

== ENCOUNTER → 2022-11-01 14:49 | Outpatient (BNVA) | payer MEDICARE, SELFPAY | PROVIDERS: PCP Internal Medicine; Visit Provider Internal Medicine | DX: Z79.01 Long term (current) use of anticoagulants (principal) ==

== ENCOUNTER → 2022-11-08 13:37 | Outpatient (BNVA) | payer MEDICARE, SELFPAY | PROVIDERS: PCP Internal Medicine; Visit Provider Internal Medicine | DX: Z79.01 Long term (current) use of anticoagulants (principal) ==

== ENCOUNTER → 2022-11-15 12:07 | Outpatient (BNVA) | payer MEDICARE, SELFPAY | PROVIDERS: PCP Internal Medicine; Visit Provider Internal Medicine | DX: Z79.01 Long term (current) use of anticoagulants (principal) ==

== ENCOUNTER → 2022-11-22 10:48 | Outpatient (BNVA) | payer MEDICARE, SELFPAY | PROVIDERS: PCP Internal Medicine; Visit Provider Internal Medicine | DX: Z79.01 Long term (current) use of anticoagulants (principal) ==

== ENCOUNTER → 2022-11-29 12:54 | Outpatient (BNVA) | payer MEDICARE, SELFPAY | PROVIDERS: PCP Internal Medicine; Visit Provider Internal Medicine | DX: Z79.01 Long term (current) use of anticoagulants (principal) ==

== ENCOUNTER → 2022-12-06 11:24 | Outpatient (BNVA) | payer MEDICARE, SELFPAY | PROVIDERS: PCP Internal Medicine; Visit Provider Internal Medicine | DX: Z79.01 Long term (current) use of anticoagulants (principal) ==

== ENCOUNTER → 2022-12-13 12:48 | Outpatient (BNVA) | payer MEDICARE, SELFPAY | PROVIDERS: PCP Internal Medicine; Visit Provider Internal Medicine | DX: Z79.01 Long term (current) use of anticoagulants (principal) ==

== ENCOUNTER → 2022-12-21 14:05 | Outpatient (BNVA) | payer MEDICARE, SELFPAY | PROVIDERS: PCP Internal Medicine; Visit Provider Internal Medicine | DX: Z79.01 Long term (current) use of anticoagulants (principal) ==

== ENCOUNTER → 2022-12-27 11:28 | Outpatient (BNVA) | payer MEDICARE, SELFPAY | PROVIDERS: PCP Internal Medicine; Visit Provider Internal Medicine | DX: Z79.01 Long term (current) use of anticoagulants (principal) ==

== ENCOUNTER → 2023-01-03 14:35 | Outpatient (BNVA) | payer MEDICARE, SELFPAY | PROVIDERS: PCP Internal Medicine; Visit Provider Internal Medicine | DX: Z79.01 Long term (current) use of anticoagulants (principal) ==

== ENCOUNTER → 2023-01-10 11:28 | Outpatient (BNVA) | payer MEDICARE, SELFPAY | PROVIDERS: PCP Internal Medicine; Visit Provider Internal Medicine ==

== ENCOUNTER → 2023-01-17 10:53 | Outpatient (BNVA) | payer MEDICARE, SELFPAY | PROVIDERS: PCP Internal Medicine; Visit Provider Internal Medicine ==

== ENCOUNTER → 2023-01-24 12:15 | Outpatient (BNVA) | payer MEDICARE, SELFPAY | PROVIDERS: PCP Internal Medicine; Visit Provider Internal Medicine ==

== ENCOUNTER → 2023-01-31 11:52 | Outpatient (BNVA) | payer MEDICARE, SELFPAY | PROVIDERS: PCP Internal Medicine; Visit Provider Internal Medicine ==

== ENCOUNTER → 2023-02-07 11:29 | Outpatient (BNVA) | payer MEDICARE, SELFPAY | PROVIDERS: PCP Internal Medicine; Visit Provider Internal Medicine ==

== ENCOUNTER → 2023-02-14 12:28 | Outpatient (BNVA) | payer MEDICARE, SELFPAY | PROVIDERS: PCP Internal Medicine; Visit Provider Internal Medicine ==

== ENCOUNTER → 2023-02-21 09:41 | Outpatient (BNVA) | payer MEDICARE, SELFPAY | PROVIDERS: PCP Internal Medicine; Visit Provider Internal Medicine ==

== ENCOUNTER → 2023-02-28 15:28 | Outpatient (BNVA) | payer MEDICARE, SELFPAY | PROVIDERS: PCP Internal Medicine; Visit Provider Internal Medicine ==

== ENCOUNTER → 2023-03-07 12:14 | Outpatient (BNVA) | payer MEDICARE, SELFPAY | PROVIDERS: PCP Internal Medicine; Visit Provider Internal Medicine ==

== ENCOUNTER → 2023-03-14 13:38 | Outpatient (BNVA) | payer MEDICARE, SELFPAY | PROVIDERS: PCP Internal Medicine; Visit Provider Internal Medicine ==

== ENCOUNTER → 2023-03-22 12:09 | Outpatient (BNVA) | payer MEDICARE, SELFPAY | PROVIDERS: PCP Internal Medicine; Visit Provider Internal Medicine ==

== ENCOUNTER → 2023-04-04 11:13 | Outpatient (BNVA) | payer MEDICARE, SELFPAY | PROVIDERS: PCP Internal Medicine; Visit Provider Internal Medicine ==

== ENCOUNTER → 2023-04-11 11:07 | Outpatient (BNVA) | payer MEDICARE, SELFPAY | PROVIDERS: PCP Internal Medicine; Visit Provider Internal Medicine ==

== ENCOUNTER → 2023-04-18 11:01 | Outpatient (BNVA) | payer MEDICARE, SELFPAY | PROVIDERS: PCP Internal Medicine; Visit Provider Internal Medicine ==

== ENCOUNTER → 2023-05-02 10:51 | Outpatient (BNVA) | payer MEDICARE, SELFPAY | PROVIDERS: PCP Internal Medicine; Visit Provider Internal Medicine ==

== ENCOUNTER → 2023-05-16 09:47 | Outpatient (BNVA) | payer MEDICARE, SELFPAY | PROVIDERS: PCP Internal Medicine; Visit Provider Internal Medicine ==

== ENCOUNTER → 2023-05-30 11:12 | Outpatient (BNVA) | payer MEDICARE, SELFPAY | PROVIDERS: PCP Internal Medicine; Visit Provider Internal Medicine ==

== ENCOUNTER → 2023-06-13 11:55 | Outpatient (BNVA) | payer MEDICARE, SELFPAY | PROVIDERS: PCP Internal Medicine; Visit Provider Internal Medicine ==

== ENCOUNTER → 2023-06-27 11:18 | Outpatient (BNVA) | payer MEDICARE, SELFPAY | PROVIDERS: PCP Internal Medicine; Visit Provider Internal Medicine ==

== ENCOUNTER → 2023-07-04 11:10 | Outpatient (BNVA) | payer MEDICARE, SELFPAY | PROVIDERS: PCP Internal Medicine; Visit Provider Internal Medicine ==

== ENCOUNTER 2023-07-16 09:47 | Outpatient (AMB) | payer MEDICARE, SELFPAY ==
[2023-07-16 10:12] VITALS: BP 116/70; PULSE 66; O2SAT 98; BMI 20.5
--- NOTE | 2023-07-16 10:12 | MHC.PC.OV ---
Vital Signs 07/16/23 10:12 Height 5 ft 3 in Weight 116 lb BMI 20.5 BP 116/70 Blood Pressure Location Lt brachial Position Sitting Pulse 66 Pulse Source Pulse Oximeter Pulse Oximetry (%) 98 Oxygen Delivery Method Room Air Intake Visit Reasons: Blood blister on lip, arthritis pain, back pain, infection on left finger Allergies azithromycin Allergy (Unknown, Verified 07/16/23 10:12) fever levofloxacin Allergy (Unknown, Verified 07/16/23 10:12) LE pain and weakness nitrofurantoin Allergy (Unknown, Verified 07/16/23 10:12) fever,park Medication List - Last Reconciled 07/16/23 by Kelly Chacon Po, albuterol sulfate 90 mcg/actuation 0 mcg inhalation amoxicillin 875 mg PO BID fluticasone propion-salmeterol 45-21 mcg/actuation (Advair HFA) inhalation levalbuterol HCl 0.63 mg PO Q4H PRN levalbuterol tartrate 45 mcg/actuation 2 puffs inhalation Q4-6H nystatin 5 mL PO BID PRN omeprazole 20 mg PO DAILY [physicians choice probiotic PO] quetiapine (Seroquel) 25 mg PO BEDTIME 90 days risedronate (Actonel) PO once a month PRN; rx Dr. Quiroz finishing next month rosuvastatin 10 mg PO DAILY sumatriptan succinate 100 mg PO DAILY PRN warfarin (Jantoven) 3 mg See Protocol PO DAILY 90 days Tobacco use date assessed: 07/16/23 Fall risk assessment: No Falls in past year Last assessed Fall Risk: 07/16/23 Dental Screening Dental Screen Date: 07/16/23 Did you have a dental visit in the last 12 months?: Yes Did you have a dental problem in the last 6 months where you did not have access to dental care?: No Was dental information given to patient?: Patient has dentist HPI arthritis pain HPI Details 78-year-old female with COPD hypercholesterolemia osteoporosis history of pulmonary embolism generalized anxiety disorder migraine coming in for follow-up. Last seen in November 2022. Bone density is up-to-date colonoscopy is up-to-date mammogram not done. since 01/2023 complains of low back pain deny fall or trauma - more at night but standiing up no radiation, no loss of control of BM or urination no fevers, R side more. 4 days ago cuticle infection L pinky finger discussed about vaccinations [facility] Medical History Bronchiectasis COPD (chronic obstructive pulmonary disease) Cough History of Pseudomonas pneumonia History of pulmonary embolism Hypercholesterolemia Migraine Obstructive sleep apnea Thyroid nodule Surgical History History of bronchoscopy History of cataract surgery History of colonoscopy Family History Father No problems noted. Mother No problems noted. Sister No problems noted. Son No problems noted. Family/Other Heart disease Social History Housing: House Alcohol intake: former Patient Tobacco Use Status: Never used Tobacco e-Cigarette/Vaping Use: Never Used Second Hand Smoke Exposure: Yes service: No Current occupational status: retired Cognitive needs: No Hearing needs: No Vision needs: Yes Questionnaire PHQ-9 Over the last 2 weeks, how often have you been bothered by any of the following problems? 1. Little interest or pleasure in doing things: not at all 2. Feeling down, depressed, or hopeless: not at all 3. Trouble falling or staying asleep, or sleeping too much: not at all 4. Feeling tired or having little energy: not at all 5. Poor appetite or overeating: not at all 6. Feeling bad about yourself - or that you are a failure or have let yourself or your family down: not at all 7. Trouble concentrating on things, such as reading the newspaper or watching television: not at all 8. Moving or speaking so slowly that other people could have noticed. Or the opposite - being so fidgety or restless that you have been moving around a lot more than usual: not at all 9. Thoughts that you would be better off or of hurting yourself in some way: not at all Total score: 0 Depression Screening Interpretation: Negative Depression Screening Done: Yes Source: Developed by Drs. Vincenzo Singh, Indira Dhaliwal, Pedro Luis Zhang and colleagues, with an educational lux from [employer]. Thrive Questionnaire Date Thrive assessed: 07/16/23 I am a: Patient What is your living situation today?: I have a steady place to live Within the past 12 months, did the food you bought not last and you didn't have the money to get more?: Never true Within the past 12 months, did you worry whether your food would run out before you got money to buy more?: Never true Do you have trouble paying for medicines?: No Do you have trouble getting transportation to medical appointments?: No Do you have trouble paying your heating and electricity bill?: No Do you have trouble taking care of your child, family member or friend?: No Do you have trouble with day-to-day activities such as bathing, preparing meals, shopping, managing finances, etc.?: No Are you currently unemployed and looking for a job?: No Are you interested in more education?: No Currently or been in a relationship where the following occur: no concerns reported AUDIT C Alcohol Use Questionnaire (AUDIT-C) 1. How often do you have a drink containing alcohol?: Never 2. How many drinks containing alcohol do you have on a typical day when you are drinking?: 1 or 2 (none) 3. How often do you have six or more drinks on one occasion?: Never Total Score: 0 Score Reviewed/Action Taken: Yes LISA-7 AMB Questionnaire LISA-7 Date LISA - 7 assessed: 11/15/22 Source: Developed by Drs. Vincenzo Singh, Indira Dhaliwal, Pedro Luis Zhang and colleagues, with an educational lux from [employer]. Physical exam (Primary Care) Vital Signs: Last Vital Signs Pulse 66 07/16/23 10:12 BP 116/70 07/16/23 10:12 Pulse Ox 98 07/16/23 10:12 Oxygen Delivery Method Room Air 07/16/23 10:12 BMI result Body Mass Index 20.5 Tobacco/Smoking Status: Tobacco use Status Tobacco use date assessed 07/16/23 07/16/23 10:17 Patient Tobacco Use Status Never used Tobacco 07/16/23 10:17 e-Cigarette/Vaping Use Never Used 07/16/23 10:17 PHQ-9: PHQ-9 Score PHQ-9: Total score 0 07/16/23 10:27 Depression Screening Interpretation: Negative Thrive Assessment: Date of Thrive Assessment Date Thrive assessed 07/16/23 07/16/23 10:17 Currently or been in a relationship where the following occur: no concerns reported Const General: alert; No acute distress Eyes Conjunctivae: conjunctivae normal Resp Auscultation: clear to auscultation bilaterally Cardio Rate: regular rate Rhythm: regular rhythm GI Inspection: Yes normal to inspection Extrem General: Yes normal to inspection and No edema Hand/finger images: 1. A finger base of nail redness 1 by half a cm Office Procedures Flu Questionnaire Does the patient have a severe egg allergy?: No Does the patient have severe life threatening allergies?: No Does the patient have a fever or illness today?: No Has the patient ever had Guillain-Rice Syndrome?: No Has the patient ever had any past reaction to a flu shot?: No Immunizations flu vacc [id number] 6mos up(PF) 60 mcg(15 mcgx4)/0.5 mL IM syringe Performing Provider: Kelly Ford MD Performing Location: [facility] Documented (not given) by: Rona Contreras CMA on 07/16/23 10:27 Reason Not Given: Patient Refused Assessment and Plan Assessment & Plan (1) Moderate persistent asthma: Code(s): J45.40 - Moderate persistent asthma, uncomplicated Plan: Continue with the inhaler patient on Advair as well as albuterol (2) History of pulmonary embolism: Comment: Two thousand eleven Code(s): Z86.711 - Personal history of pulmonary embolism Plan: Continue with anticoagulation with Coumadin (3) Hypercholesterolemia: Code(s): E78.00 - Pure hypercholesterolemia, unspecified Plan: Avoid fried foods, chicken skin, eggs, butter margarine, pastries and meat. Be it pork or beef they have a lot of cholesterol patient on rosuvastatin 10 (4) Osteoporosis: Comment: September 2018, September 2020, 2021 Code(s): M81.0 - Age-related osteoporosis without current pathological fracture Qualifiers: Osteoporosis type: age-related Presence of current pathological fracture: without current pathological fracture Qualified Code(s): M81.0 - Age-related osteoporosis without current pathological fracture Plan: on actonel DR. Quiroz monitoring bone density next year (5) Generalized anxiety disorder: Comment: decline counselling, doing good Code(s): F41.1 - Generalized anxiety disorder Plan: Continue with therapy (6) Low back pain: Code(s): M54.50 - Low back pain, unspecified Plan: decline PT, decline med x-ray requested discussed about Voltaren gel (7) Paronychia of finger: Code(s): L03.019 - Cellulitis of unspecified finger Plan: monitor and take antibiotic Orders: Orders Free T4 (Free Thyroxine) Today E78.00 - Pure hypercholesterolemia, unspecified Vitamin D 25-OH Total Today M81.0 - Age-related osteoporosis without current pathological fracture Influenza [id number] Immunization Today Z23 - Encounter for immunization Complete Blood Count Auto Diff Today E78.00 - Pure hypercholesterolemia, unspecified Comprehensive Met. Panel Today E78.00 - Pure hypercholesterolemia, unspecified Thyroid Stimulating Hormone Today E78.00 - Pure hypercholesterolemia, unspecified Vitamin B12 and Folate Today E78.00 - Pure hypercholesterolemia, unspecified Lipid Panel Today E78.00 - Pure hypercholesterolemia, unspecified XR lumbar spine 2-3V Today M54.50 - Low back pain, unspecified Medications: New amoxicillin 875 mg PO BID 14 tabs 0RF L03.019 - Cellulitis of unspecified finger Changed From risedronate (Actonel) PO once a month PRN; rx Dr. Quiroz 1 tab 0RF osteoporosis M81.0 - Age-related osteoporosis without current pathological fracture To risedronate (Actonel) PO once a month PRN; rx Dr. Quiroz finishing next month 1 tab 0RF osteoporosis M81.0 - Age-related osteoporosis without current pathological fracture Coding Level of Care Code Est Pt Level 4 (39543) Diagnoses Moderate persistent asthma J45.40 History of pulmonary embolism Z86.711 Hypercholesterolemia E78.00 Age-related osteoporosis without current pathological fracture M81.0 Osteoporosis type: age-related Presence of current pathological fracture: without current pathological fracture Generalized anxiety disorder F41.1 Low back pain M54.50 Paronychia of finger L03.019 Additional Codes PHQ-9 - 75890 - PHQ-9 Billing: ([id number])
== END 2023-07-16 10:54 | disposition home or self-care (01) ==
PROVIDERS: PCP Internal Medicine; Visit Provider Internal Medicine
DX: J45.40 Moderate persistent asthma, uncomplicated (principal); Z86.711 Personal history of pulmonary embolism; E78.00 Pure hypercholesterolemia, unspecified; M81.0 Age-related osteoporosis without current pathological fracture; F41.1 Generalized anxiety disorder; M54.50 Low back pain, unspecified; L03.019 Cellulitis of unspecified finger
CPT/HCPCS: 99214

== ENCOUNTER 2023-07-16 11:09 | Outpatient (REF) | payer MEDICARE, SELFPAY ==
--- NOTE | ~2023-07-16 | XR_ITS ---
EXAMINATION: XR LUMBOSACRAL SPINE CLINICAL INFORMATION: Low back pain. COMPARISON: None available. TECHNIQUE: Three views of the lumbosacral spine. FINDINGS: Suspect decreased bone mineral density, limiting sensitivity for subtle fracture. Vertebral body heights appear maintained. Moderate to severe disc degenerative change appears present at L5-S1, and mild to moderate disc degenerative change appears present throughout the remainder of the lumbar spine. No spondylolysis or spondylolisthesis is seen. Mild lumbar dextrocurvature. Facet degenerative changes of the lower lumbar spine. No lytic or sclerotic bony lesion is identified. The paraspinal soft tissues appear unremarkable. The aorta and iliac arteries are calcified. XR/XR lumbar spine 2-3V IMPRESSION: Degenerative change.
== END 2023-07-16 11:10 | disposition home or self-care (01) ==
LOC: HO.XRAY 11:09
PROVIDERS: PCP Internal Medicine; Visit Provider Internal Medicine
DX: M54.50 Low back pain, unspecified (principal)
CPT/HCPCS: 72100

== ENCOUNTER → 2023-07-18 12:01 | Outpatient (BNVA) | payer MEDICARE, SELFPAY | PROVIDERS: PCP Internal Medicine; Visit Provider Internal Medicine ==

== ENCOUNTER → 2023-07-25 11:39 | Outpatient (BNVA) | payer MEDICARE, SELFPAY | PROVIDERS: PCP Internal Medicine; Visit Provider Internal Medicine ==

== ENCOUNTER → 2023-08-01 15:28 | Outpatient (BNVA) | payer MEDICARE, SELFPAY | PROVIDERS: PCP Internal Medicine; Visit Provider Internal Medicine ==

== ENCOUNTER 2023-08-12 11:05 | Outpatient (REF) | payer MEDICARE, SELFPAY ==
[2023-08-12 11:23] LABS: MANUAL DIFF FLAG NO
[2023-08-12 11:40] LABS: Eosinophils Percent Auto 4.1 % (0-4); Hematocrit 40.4 % (37.0-47.0); Hemoglobin 13.2 g/dl (12.0-16.0); Imm Gran Abs Auto 0.01 X10*3/uL (0.00-0.03); Imm Gran Pct Auto 0.2 % (0.0-0.4); Lymphocytes Percent Auto 32.3 % (20-40); Mean Corpuscular HGB Conc 32.7 g/dl (31.0-35.0); Mean Corpuscular Hemoglobin 29.8 pg (27.0-33.0); Mean Corpuscular Volume 91.2 fL (80.0-98.0); Mean Platelet Volume 10.7 fL (9.4-12.3); Monocytes Percent Auto 11.6 % (2-11); Neutrophils Absolute Auto 2.6 x10*3/uL (2.0-8.3); Neutrophils Percent Auto 50.8 % (45-73); Platelet Count 322 X10*3/uL (160-400); Red Blood Count 4.43 X10*6/uL (4.20-5.50); Red Cell Distribution Width 13.6 % (11.0-16.0); White Blood Count 5.1 X10*3/uL (4.8-10.8)
[2023-08-12 11:41] LABS: Basophils Absolute Auto 0.1 X10*3/uL (0.0-0.2); Eosinophils Absolute Auto 0.2 X10*3/uL (0.0-0.4); Lymphocytes Absolute Auto 1.6 X10*3/uL (1.2-4.9); Monocytes Absolute Auto 0.6 X10*3/uL (0.1-1.2)
[2023-08-12 12:38] LABS: Alanine Aminotransferase 22 U/L (0-31); Alkaline Phosphatase 67 U/L (39-117); Anion Gap 12 (12-20); Aspartate Amino Transferase 27 U/L (5-31); Bilirubin Total 0.4 mg/dL (0.0-1.0); Blood Urea Nitrogen 14 mg/dL (9-16); Calcium 9.5 mg/dL (8.4-10.2); Carbon Dioxide 28 mmol/L (22-29); Chloride 106 mmol/L (96-108); Cholesterol 195 mg/dL (<200); Estimated Glomerular Filt Rate > 60; Free T4 (Free Thyroxine) 0.82 ng/dL (0.71-1.85); Glucose Random 98 mg/dL (60-115); HDL Cholesterol 72 mg/dL (>40); LDL Cholesterol Calculated 112 mg/dL (<100); Potassium 3.8 mmol/L (3.3-5.1); Sodium 142 mmol/L (135-145); Thyroid Stimulating Hormone 1.48 uIU/mL (0.32-4.0); Total Protein 7.2 g/dL (6.5-8.0); Triglycerides 56 mg/dL (<150); Vitamin D 25-OH Total 61.4 ng/mL (>30)
[2023-08-12 12:49] LABS: Folate 14.8 ng/mL (> or = 4.0); Vitamin B12 1113 pg/mL (200-900)
== END 2023-08-12 11:06 | disposition home or self-care (01) ==
LOC: HO.LAB 11:05
PROVIDERS: PCP Internal Medicine; Visit Provider Internal Medicine
DX: M81.0 Age-related osteoporosis without current pathological fracture (principal); E78.00 Pure hypercholesterolemia, unspecified
CPT/HCPCS: 36415; 80053; 80061; 82306; 82607; 82746; 84439; 84443; 85025

== ENCOUNTER → 2023-08-15 15:14 | Outpatient (BNVA) | payer MEDICARE, SELFPAY | PROVIDERS: PCP Internal Medicine; Visit Provider Internal Medicine ==

== ENCOUNTER → 2023-08-28 12:01 | Outpatient (BNVA) | payer MEDICARE, SELFPAY | PROVIDERS: PCP Internal Medicine; Visit Provider Internal Medicine ==

== ENCOUNTER → 2023-09-12 13:55 | Outpatient (BNVA) | payer MEDICARE, SELFPAY | PROVIDERS: PCP Internal Medicine; Visit Provider Internal Medicine | DX: I26.99 Other pulmonary embolism without acute cor pulmonale (principal); Z79.01 Long term (current) use of anticoagulants; Z51.81 Encounter for therapeutic drug level monitoring | CPT/HCPCS: 85610; 99212 ==

== ENCOUNTER → 2023-09-26 12:48 | Outpatient (BNVA) | payer MEDICARE, SELFPAY | PROVIDERS: PCP Internal Medicine; Visit Provider Internal Medicine ==

== ENCOUNTER → 2023-10-03 12:11 | Outpatient (BNVA) | payer MEDICARE, SELFPAY | PROVIDERS: PCP Internal Medicine; Visit Provider Internal Medicine ==

== ENCOUNTER → 2023-10-10 12:00 | Outpatient (BNVA) | payer MEDICARE, SELFPAY | PROVIDERS: PCP Internal Medicine; Visit Provider Internal Medicine ==

== ENCOUNTER → 2023-10-31 10:32 | Outpatient (BNVA) | payer MEDICARE, SELFPAY | PROVIDERS: PCP Internal Medicine; Visit Provider Internal Medicine ==

== ENCOUNTER 2023-11-14 09:18 | Outpatient (AMB) | payer MEDICARE, SELFPAY ==
[2023-11-14 09:24] VITALS: BP 126/72; PULSE 69; O2SAT 98; BMI 20.2
--- NOTE | 2023-11-14 09:24 | A.OFFPC_ITS ---
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 Required: No Allergies azithromycin Allergy (Unknown, Verified 11/14/23 09:24) fever levofloxacin Allergy (Unknown, Verified 11/14/23 09:24) LE pain and weakness nitrofurantoin Allergy (Unknown, Verified 11/14/23 09:24) fever,park Medication List - Last Reconciled 11/14/23 by Kelly Ford MD albuterol sulfate 90 mcg/actuation 0 mcg inhalation levalbuterol HCl 0.63 mg PO Q4H PRN levalbuterol tartrate 45 mcg/actuation 2 puffs inhalation Q4-6H omeprazole 20 mg PO DAILY [physicians choice probiotic PO] quetiapine (Seroquel) 25 mg PO BEDTIME 90 days rosuvastatin 10 mg PO DAILY sulfamethoxazole-trimethoprim 800-160 mg (Bactrim DS) 1 tab PO BID sumatriptan succinate 100 mg PO DAILY PRN warfarin (Jantoven) 3 mg See Protocol PO DAILY 90 days Tobacco use date assessed: 11/14/23 Fall risk assessment: No Falls in past year Last assessed Fall Risk: 11/14/23 Dental Screening Dental Screen Date: 11/14/23 HPI Finger Infection HPI Details 78-year-old female with a history of pul monary embolism asthma hypercholesterolemia generalized anxiety disorder coming in for concerns about nail infection. Patient has been given treatment and repeated treatment in comes in for the same problem. rammed R 4th and 5th finger on baseboard while cleaning and comes in with red and swelling PFSH Medical History Bronchiectasis COPD (chronic obstructive pulmonary disease) Cough History of Pseudomonas pneumonia History of pulmonary embolism Hypercholesterolemia Migraine Obstructive sleep apnea Thyroid nodule Surgical History History of bronchoscopy History of cataract surgery History of colonoscopy Family History Father No problems noted. Mother No problems noted. Sister No problems noted. Son No problems noted. Family/Other Heart disease Social History Housing: House Alcohol intake: former Patient Tobacco Use Status: Never used Tobacco e-Cigarette/Vaping Use: Never Used Second Hand Smoke Exposure: Yes service: No Current occupational status: retired Cognitive needs: No Hearing needs: No Vision needs: Yes Questionnaire PHQ-9 Over the last 2 weeks, how often have you been bothered by any of the following problems? 1. Little interest or pleasure in doing things: not at all 2. Feeling down, depressed, or hopeless: not at all 3. Trouble falling or staying asleep, or sleeping too much: not at all 4. Feeling tired or having little energy: not at all 5. Poor appetite or overeating: not at all 6. Feeling bad about yourself - or that you are a failure or have let yourself or your family down: not at all 7. Trouble concentrating on things, such as reading the newspaper or watching television: not at all 8. Moving or speaking so slowly that other people could have noticed. Or the opposite - being so fidgety or restless that you have been moving around a lot more than usual: not at all 9. Thoughts that you would be better off or of hurting yourself in some way: not at all Total score: 0 Depression Screening Interpretation: Negative Depression Screening Done: Yes Source: Developed by Drs. Vincenzo Singh, Indira Dhaliwal, Pedro Luis Zhang and colleagues, with an educational lux from [employer]. Thrive Questionnaire Date Thrive assessed: 11/14/23 I am a: Patient What is your living situation today?: I have a steady place to live Within the past 12 months, did the food you bought not last and you didn't have the money to get more?: Never true Within the past 12 months, did you worry whether your food would run out before you got money to buy more?: Never true Do you have trouble paying for medicines?: No Do you have trouble getting transportation to medical appointments?: No Do you have trouble paying your heating and electricity bill?: No Do you have trouble taking care of your child, family member or friend?: No Do you have trouble with day-to-day activities such as bathing, preparing meals, shopping, managing finances, etc.?: No Are you currently unemployed and looking for a job?: No Are you interested in more education?: No Please select the resources that you would like help with: None THRIVE Score: 0 AUDIT C Alcohol Use Questionnaire (AUDIT-C) 1. How often do you have a drink containing alcohol?: Never 2. How many drinks containing alcohol do you have on a typical day when you are drinking?: 1 or 2 (none) 3. How often do you have six or more drinks on one occasion?: Never Total Score: 0 Score Reviewed/Action Taken: Yes LISA-7 AMB Questionnaire LISA-7 Date LISA - 7 assessed: 11/14/23 Source: Developed by Drs. Vincenzo Singh, Indira Dhaliwal, Pedro Luis Zhang and colleagues, with an educational lux from [employer]. Physical exam (Primary Care) Vital Signs: Last Vital Signs Pulse 69 11/14/23 09:24 BP 126/72 11/14/23 09:24 Pulse Ox 98 11/14/23 09:24 Oxygen Delivery Method Room Air 11/14/23 09:24 BMI result Body Mass Index 20.2 Tobacco/Smoking Status: Tobacco use Status Tobacco use date assessed 11/14/23 11/14/23 09:25 Patient Tobacco Use Status Never used Tobacco 11/14/23 09:25 e-Cigarette/Vaping Use Never Used 11/14/23 09:25 PHQ-9: PHQ-9 Score PHQ-9: Total score 0 11/14/23 09:33 Depression Screening Interpretation: Negative Thrive Assessment: Date of Thrive Assessment Date Thrive assessed 11/14/23 11/14/23 09:25 Extrem Other: Redness on the base of the 3rd and 4th finger nail on the right hand Assessment and Plan Assessment & Plan (1) Paronychia of finger of right hand: Comment: Right 3rd and 4th finger Code(s): L03.011 - Cellulitis of right finger Plan: antibiotic sent. (2) Generalized anxiety disorder: Comment: decline counselling, doing good Code(s): F41.1 - Generalized anxiety disorder Plan: Seroquel prescription refilled (3) Vitamin B 12 deficiency: Code(s): E53.8 - Deficiency of other specified B group vitamins Plan: Patient's vitamin B12 was elevated and was advised to stop the medication and will need retesting. (4) History of pulmonary embolism: Comment: Two thousand eleven Code(s): Z86.711 - Personal history of pulmonary embolism Plan: Discussed that with the antibiotic the blood thinner Coumadin will be affected. Medications: Refilled quetiapine (Seroquel) 25 mg PO BEDTIME 90 tabs 3RF 90 days sulfamethoxazole-trimethoprim 800-160 mg (Bactrim DS) 1 tab PO BID 14 tabs 0RF L03.019 - Cellulitis of unspecified finger Coding Level of Care Code Est Pt Level 4 (94912) Diagnoses Paronychia of finger of right hand L03.011 Generalized anxiety disorder F41.1 Vitamin B 12 deficiency E53.8 History of pulmonary embolism Z86.711 Additional Codes PHQ-9 - 21745 - PHQ-9 Billing: ([id number])
== END 2023-11-14 09:44 | disposition home or self-care (01) ==
PROVIDERS: PCP Internal Medicine; Visit Provider Internal Medicine
DX: L03.011 Cellulitis of right finger (principal); F41.1 Generalized anxiety disorder; E53.8 Deficiency of other specified B group vitamins; Z86.711 Personal history of pulmonary embolism
CPT/HCPCS: 99214

== ENCOUNTER 2023-11-14 10:00 | Outpatient (REF) | payer MEDICARE, SELFPAY ==
[2023-11-14 10:27] LABS: MANUAL DIFF FLAG NO
[2023-11-14 10:48] LABS: Basophils Absolute Auto 0.1 X10*3/uL (0.0-0.2); Eosinophils Absolute Auto 0.3 X10*3/uL (0.0-0.4); Eosinophils Percent Auto 4.1 % (0-4); Hematocrit 41.1 % (37.0-47.0); Hemoglobin 13.7 g/dl (12.0-16.0); Imm Gran Abs Auto 0.03 X10*3/uL (0.00-0.03); Imm Gran Pct Auto 0.5 % (0.0-0.4); Lymphocytes Absolute Auto 1.7 X10*3/uL (1.2-4.9); Lymphocytes Percent Auto 27.1 % (20-40); Mean Corpuscular HGB Conc 33.3 g/dl (31.0-35.0); Mean Corpuscular Hemoglobin 30.4 pg (27.0-33.0); Mean Corpuscular Volume 91.1 fL (80.0-98.0); Mean Platelet Volume 10.7 fL (9.4-12.3); Monocytes Absolute Auto 0.7 X10*3/uL (0.1-1.2); Monocytes Percent Auto 11.4 % (2-11); Neutrophils Absolute Auto 3.4 x10*3/uL (2.0-8.3); Neutrophils Percent Auto 55.9 % (45-73); Platelet Count 337 X10*3/uL (160-400); Red Blood Count 4.51 X10*6/uL (4.20-5.50); Red Cell Distribution Width 13.5 % (11.0-16.0); White Blood Count 6.1 X10*3/uL (4.8-10.8)
[2023-11-14 11:33] LABS: Alanine Aminotransferase 27 U/L (0-31); Albumin Level 4.1 g/dL (3.5-5.0); Alkaline Phosphatase 61 U/L (39-117); Anion Gap 12 (12-20); Aspartate Amino Transferase 30 U/L (5-31); Bilirubin Total 0.3 mg/dL (0.0-1.0); Blood Urea Nitrogen 20 mg/dL (9-16); Calcium 9.6 mg/dL (8.4-10.2); Carbon Dioxide 27 mmol/L (22-29); Chloride 106 mmol/L (96-108); Cholesterol 195 mg/dL (<200); Estimated Glomerular Filt Rate > 60; Glucose Random 105 mg/dL (60-115); HDL Cholesterol 76 mg/dL (>40); LDL Cholesterol Calculated 101 mg/dL (<100); Potassium 3.9 mmol/L (3.3-5.1); Sodium 141 mmol/L (135-145); Total Protein 7.1 g/dL (6.5-8.0); Triglycerides 91 mg/dL (<150)
[2023-11-14 11:38] LABS: Free T4 (Free Thyroxine) 0.92 ng/dL (0.71-1.85); Thyroid Stimulating Hormone 1.35 uIU/mL (0.32-4.0)
[2023-11-14 11:47] LABS: Folate 10.6 ng/mL (> or = 4.0); Vitamin B12 737 pg/mL (200-900)
== END 2023-11-14 10:01 | disposition home or self-care (01) ==
LOC: HO.LAB 10:00
PROVIDERS: PCP Internal Medicine; Visit Provider Internal Medicine
DX: I26.99 Other pulmonary embolism without acute cor pulmonale (principal); E78.00 Pure hypercholesterolemia, unspecified; Z51.81 Encounter for therapeutic drug level monitoring; Z79.01 Long term (current) use of anticoagulants
CPT/HCPCS: 36415; 80053; 80061; 82607; 82746; 84439; 84443; 85025

== ENCOUNTER → 2023-11-19 09:51 | Outpatient (BNVA) | payer MEDICARE, SELFPAY | PROVIDERS: PCP Internal Medicine; Visit Provider Internal Medicine ==

== ENCOUNTER → 2023-11-28 14:03 | Outpatient (BNVA) | payer MEDICARE, SELFPAY | PROVIDERS: PCP Internal Medicine; Visit Provider Internal Medicine ==

== ENCOUNTER → 2023-12-03 10:55 | Outpatient (BNVA) | payer MEDICARE, SELFPAY | PROVIDERS: PCP Internal Medicine; Visit Provider Internal Medicine ==

== ENCOUNTER → 2023-12-10 11:21 | Outpatient (BNVA) | payer MEDICARE, SELFPAY | PROVIDERS: PCP Internal Medicine; Visit Provider Internal Medicine ==

== ENCOUNTER → 2023-12-24 10:27 | Outpatient (BNVA) | payer MEDICARE, SELFPAY | PROVIDERS: PCP Internal Medicine; Visit Provider Internal Medicine ==

== ENCOUNTER → 2024-01-07 10:39 | Outpatient (BNVA) | payer MEDICARE, SELFPAY | PROVIDERS: PCP Internal Medicine; Visit Provider Internal Medicine ==

== ENCOUNTER → 2024-01-21 11:49 | Outpatient (BNVA) | payer MEDICARE, SELFPAY | PROVIDERS: PCP Internal Medicine; Visit Provider Internal Medicine ==

== ENCOUNTER → 2024-02-04 13:30 | Outpatient (BNVA) | payer MEDICARE, SELFPAY | PROVIDERS: PCP Internal Medicine; Visit Provider Internal Medicine ==

== ENCOUNTER → 2024-02-18 10:53 | Outpatient (BNVA) | payer MEDICARE, SELFPAY | PROVIDERS: PCP Internal Medicine; Visit Provider Internal Medicine ==

== ENCOUNTER → 2024-03-03 14:19 | Outpatient (BNVA) | payer MEDICARE, SELFPAY | PROVIDERS: PCP Internal Medicine; Visit Provider Internal Medicine ==

== ENCOUNTER → 2024-03-17 11:08 | Outpatient (BNVA) | payer MEDICARE, SELFPAY | PROVIDERS: PCP Internal Medicine; Visit Provider Internal Medicine ==

== ENCOUNTER → 2024-03-31 15:46 | Outpatient (BNVA) | payer MEDICARE, SELFPAY | PROVIDERS: PCP Internal Medicine; Visit Provider Internal Medicine ==

== ENCOUNTER → 2024-04-14 14:35 | Outpatient (BNVA) | payer MEDICARE, SELFPAY | PROVIDERS: PCP Internal Medicine; Visit Provider Internal Medicine ==

== ENCOUNTER 2024-04-21 11:26 | Outpatient (AMB) | payer MEDICARE, SELFPAY ==
[2024-04-21 11:28] VITALS: BP 130/72; PULSE 71; O2SAT 96; BMI 20.2
--- NOTE | 2024-04-21 11:28 | MHC.PC.OV ---
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 Required: No Allergies azithromycin Allergy (Unknown, Verified 04/21/24 11:28) fever levofloxacin Allergy (Unknown, Verified 04/21/24 11:28) LE pain and weakness nitrofurantoin Allergy (Unknown, Verified 04/21/24 11:28) fever,park Medication List - Last Reconciled 04/21/24 by Kelly Ford MD albuterol sulfate 90 mcg/actuation 0 mcg inhalation fluticasone propion-salmeterol 45-21 mcg/actuation (Advair HFA) inhalation levalbuterol HCl 0.63 mg PO Q4H PRN levalbuterol tartrate 45 mcg/actuation 2 puffs inhalation Q4-6H omeprazole 20 mg PO DAILY [physicians choice probiotic PO] quetiapine (Seroquel) 25 mg PO BEDTIME 90 days rosuvastatin 10 mg PO DAILY sumatriptan succinate 100 mg PO DAILY PRN tramadol 50 mg PO BEDTIME warfarin (Jantoven) 3 mg See Protocol PO DAILY 90 days Tobacco use date assessed: 11/14/23 Fall risk assessment: No Falls in past year Last assessed Fall Risk: 04/21/24 Dental Screening Dental Screen Date: 11/14/23 HPI Back Pain HPI Details 78-year-old female with COPD hypercholesterolemia history of pulmonary embolism generalized anxiety disorder asthma coming in for follow-up. Last seen in November 2023. on advair- went on singulair tab occ. complains of pain lower back with states R big toe numbness , complains of pain a lot. l PFSH Medical History Bronchiectasis COPD (chronic obstructive pulmonary disease) Cough History of Pseudomonas pneumonia History of pulmonary embolism Hypercholesterolemia Migraine Obstructive sleep apnea Thyroid nodule Surgical History History of bronchoscopy History of cataract surgery History of colonoscopy Family History Father No problems noted. Mother No problems noted. Sister No problems noted. Son No problems noted. Family/Other Heart disease Social History Housing: House Alcohol intake: former Patient Tobacco Use Status: Never used Tobacco e-Cigarette/Vaping Use: Never Used Second Hand Smoke Exposure: Yes service: No Current occupational status: retired Cognitive needs: No Hearing needs: No Vision needs: Yes Questionnaire Thrive Questionnaire Date Thrive assessed: 11/14/23 AUDIT C Alcohol Use Questionnaire (AUDIT-C) 1. How often do you have a drink containing alcohol?: Never 2. How many drinks containing alcohol do you have on a typical day when you are drinking?: 1 or 2 (none) 3. How often do you have six or more drinks on one occasion?: Never Total Score: 0 Score Reviewed/Action Taken: Yes LISA-7 AMB Questionnaire LISA-7 Date LISA - 7 assessed: 11/14/23 Source: Developed by Drs. Vincenzo Singh, Indira Dhaliwal, Pedro Luis Zhang and colleagues, with an educational lux from [employer]. Physical exam (Primary Care) Vital Signs: Last Vital Signs Pulse 71 04/21/24 11:28 BP 130/72 04/21/24 11:28 Pulse Ox 96 04/21/24 11:28 Oxygen Delivery Method Room Air 04/21/24 11:28 BMI result Body Mass Index 20.2 Tobacco/Smoking Status: Tobacco use Status Tobacco use date assessed 11/14/23 04/21/24 11:29 Patient Tobacco Use Status Never used Tobacco 04/21/24 11:29 e-Cigarette/Vaping Use Never Used 04/21/24 11:29 Thrive Assessment: Date of Thrive Assessment Date Thrive assessed 11/14/23 04/21/24 11:29 Const General: alert; No acute distress Eyes Conjunctivae: conjunctivae normal Resp Auscultation: clear to auscultation bilaterally Cardio Rate: regular rate Rhythm: regular rhythm GI Inspection: Yes normal to inspection Extrem General: Yes normal to inspection and No edema Assessment and Plan Assessment & Plan (1) Hypercholesterolemia: Code(s): E78.00 - Pure hypercholesterolemia, unspecified Plan: Avoid fried foods, chicken skin, eggs, butter margarine, pastries and meat. Be it pork or beef they have a lot of cholesterol LDL goal of less than 130 and triglyceride of less than 150 on rosuvastatin 11/26/2023 blood work (2) COPD (chronic obstructive pulmonary disease): Code(s): J44.9 - Chronic obstructive pulmonary disease, unspecified Qualifiers: COPD type: emphysema Emphysema type: unspecified Qualified Code(s): J43.9 - Emphysema, unspecified Plan: Patient on albuterol inhaler and Advair and reminded about rinsing mouth after using them (3) History of pulmonary embolism: Comment: Two thousand eleven Code(s): Z86.711 - Personal history of pulmonary embolism Plan: Continue with anticoagulation with Coumadin (4) Generalized anxiety disorder: Comment: decline counselling, doing good Code(s): F41.1 - Generalized anxiety disorder Plan: On Seroquel to help with sleep. Stable Orders: Orders XR sacroiliac joint 1-2V Today M54.50 - Low back pain, unspecified PT Evaluation and Treatment Today M54.50 - Low back pain, unspecified XR lumbar spine 2-3V Today M54.50 - Low back pain, unspecified Medications: New tramadol 50 mg PO BEDTIME 7 tabs 0RF M54.50 - Low back pain, unspecified Coding Level of Care Code Est Pt Level 4 (78840) Diagnoses Hypercholesterolemia E78.00 Pulmonary emphysema, unspecified emphysema type J43.9 COPD type: emphysema Emphysema type: unspecified History of pulmonary embolism Z86.711 Generalized anxiety disorder F41.1
== END 2024-04-21 12:01 | disposition home or self-care (01) ==
PROVIDERS: PCP Internal Medicine; Visit Provider Internal Medicine
DX: E78.00 Pure hypercholesterolemia, unspecified (principal); J43.9 Emphysema, unspecified; Z86.711 Personal history of pulmonary embolism; F41.1 Generalized anxiety disorder
CPT/HCPCS: 99214

== ENCOUNTER 2024-04-21 12:09 | Outpatient (REF) | payer MEDICARE, SELFPAY ==
--- NOTE | ~2024-04-21 | XR_ITS ---
EXAMINATION: XR LUMBAR SPINE XR SACROILIAC JOINTS CLINICAL INDICATION: Low back pain. COMPARISON: 07/16/2023 lumbar spine. TECHNIQUE: 3 views of the sacroiliac joints. 3 views of the lumbar spine. FINDINGS: LUMBAR SPINE: Diffuse demineralization. Dextroscoliosis of the lumbar spine. Facet arthritis in the mid to lower lumbar spine. Atherosclerotic aortoiliac calcifications. Multilevel lumbar spondylosis. Moderate to marked loss of disc space height L5-S1. Mild-moderate degenerative changes with loss of disc space height in the remainder of the lumbar spine. SACROILIAC JOINTS: Diffuse demineralization. Moderate degenerative changes in the bilateral sacroiliac joints. Degenerative changes on limited views of the bilateral hips. XR/XR lumbar spine 2-3V IMPRESSION: 1. Moderate to marked degenerative disc disease L5-S1. 2. Facet arthritis in the mid to lower lumbar spine. 3. Mild degenerative changes in the bilateral sacroiliac joints. This study was presented today May 06, 2024 for interpretation. Stat results provided at this time as requested by referring provider.
--- NOTE | ~2024-04-21 | XR_ITS ---
EXAMINATION: XR LUMBAR SPINE XR SACROILIAC JOINTS CLINICAL INDICATION: Low back pain. COMPARISON: 07/16/2023 lumbar spine. TECHNIQUE: 3 views of the sacroiliac joints. 3 views of the lumbar spine. FINDINGS: LUMBAR SPINE: Diffuse demineralization. Dextroscoliosis of the lumbar spine. Facet arthritis in the mid to lower lumbar spine. Atherosclerotic aortoiliac calcifications. Multilevel lumbar spondylosis. Moderate to marked loss of disc space height L5-S1. Mild-moderate degenerative changes with loss of disc space height in the remainder of the lumbar spine. SACROILIAC JOINTS: Diffuse demineralization. Moderate degenerative changes in the bilateral sacroiliac joints. Degenerative changes on limited views of the bilateral hips. XR/XR sacroiliac joint 1-2V IMPRESSION: 1. Moderate to marked degenerative disc disease L5-S1. 2. Facet arthritis in the mid to lower lumbar spine. 3. Mild degenerative changes in the bilateral sacroiliac joints. This study was presented today May 06, 2024 for interpretation. Stat results provided at this time as requested by referring provider.
== END 2024-04-21 12:10 | disposition home or self-care (01) ==
LOC: HO.XRAY 12:09
PROVIDERS: PCP Internal Medicine; Visit Provider Internal Medicine
DX: M54.50 Low back pain, unspecified (principal)
CPT/HCPCS: 72100; 72200

== ENCOUNTER → 2024-04-28 11:03 | Outpatient (BNVA) | payer MEDICARE, SELFPAY | PROVIDERS: PCP Internal Medicine; Visit Provider Internal Medicine ==

== ENCOUNTER → 2024-05-12 10:09 | Outpatient (BNVA) | payer MEDICARE, SELFPAY | PROVIDERS: PCP Internal Medicine; Visit Provider Internal Medicine ==

== ENCOUNTER → 2024-05-26 15:15 | Outpatient (BNVA) | payer MEDICARE, SELFPAY | PROVIDERS: PCP Internal Medicine; Visit Provider Internal Medicine ==

== ENCOUNTER → 2024-06-02 13:11 | Outpatient (BNVA) | payer MEDICARE, SELFPAY | PROVIDERS: PCP Internal Medicine; Visit Provider Internal Medicine ==

== ENCOUNTER → 2024-06-09 10:44 | Outpatient (BNVA) | payer MEDICARE, SELFPAY | PROVIDERS: PCP Internal Medicine; Visit Provider Internal Medicine ==

== ENCOUNTER → 2024-06-16 15:45 | Outpatient (BNVA) | payer MEDICARE, SELFPAY | PROVIDERS: PCP Internal Medicine; Visit Provider Internal Medicine ==

== ENCOUNTER → 2024-06-23 10:19 | Outpatient (BNVA) | payer MEDICARE, SELFPAY | PROVIDERS: PCP Internal Medicine; Visit Provider Internal Medicine ==

== ENCOUNTER → 2024-07-07 11:20 | Outpatient (BNVA) | payer MEDICARE, SELFPAY | PROVIDERS: PCP Internal Medicine; Visit Provider Internal Medicine ==

== ENCOUNTER → 2024-07-21 10:48 | Outpatient (BNVA) | payer MEDICARE, SELFPAY | PROVIDERS: PCP Internal Medicine; Visit Provider Internal Medicine ==

== ENCOUNTER 2024-07-23 13:00 | Outpatient (RCR) | payer MEDICARE, SELFPAY ==
--- NOTE | 2024-05-27 11:24 | MHC.PT.EP ---
[facility] [place] Office [place] Office [place] Office [address] Casimiro Dickson [address] [phone] F: [phone] F: [phone] F: [phone] F: [phone] Physical Therapy Plan of Care Date of Evaluation: 05/27/24 Date of Surgery: Diagnosis: LBP Assessment: 79 y/o female referred to PT with LBP. S/s consistent with lumbar derangement and OA reulting in pain and difficulty with walking, stairs, electrical troubleshooter, driving, moving in bed. Examination shows decreased lumbar/hip ROM, decreased hip strength, altered SI mechanics, decreased HS length, pain and impaired gait pattern. 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 Manual therapy to restore motion and function. Therapeutic exercise to improve strength and flexibility. Neuromuscular re-education for posture and balance. Therapeutic activities to return to functional activities of daily living. Electronically signed by: Parisa Breen PT Please sign and return to therapist. Thank you for your referral.
--- NOTE | 2024-06-25 13:59 | MHC.PT.EP ---
[facility] [place] Office [place] Office [place] Office [address] Casimiro Dickson [address] [phone] F: [phone] F: [phone] F: [phone] F: [phone] Physical Therapy Plan of Care Date of Evaluation: 05/27/24 Date of Surgery: Diagnosis: LBP Assessment: 79 y/o female referred to PT with LBP. S/s consistent with lumbar derangement and OA reulting in pain and difficulty with walking, stairs, infectious disease technician, driving, moving in bed. Examination shows decreased lumbar/hip ROM, decreased hip strength, altered SI mechanics, decreased HS length, pain and impaired gait pattern. 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 Manual therapy to restore motion and function. Therapeutic exercise to improve strength and flexibility. Neuromuscular re-education for posture and balance. Therapeutic activities to return to functional activities of daily living. Electronically signed by: Parisa Breen PT Please sign and return to therapist. Thank you for your referral.
--- NOTE | 2024-07-23 14:02 | MHC.PT.DC ---
[facility] [place] Office [place] Office [place] Office [address] Casimiro Dickson [address] [phone] F: [phone] F: [phone] F: [phone] F: [phone] Physical Therapy Discharge Report Diagnosis: LBP Date of Surgery: Date of Evaluation: 05/27/24 Date of Discharge: 07/23/24 Treatments to Date: 7 Cancellations to Date: 0 No Shows to Date: 0 Discharge Status: Improved Function Independent with HEP Discharge Summary: Pt demonstrates improved gait pattern with more symmetrical heel strike. 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 No significant difference in Oswestry, she has met 75% of her goals. At this time, pt feels she can manage I with HEP and is therefore d/c at this time. No further questions. Electronically signed by: Parisa Breen PT Please sign and return to therapist. Thank you for your referral.
== END 2024-07-23 14:02 | disposition home or self-care (01) ==
LOC: HO.PT 13:00
PROVIDERS: PCP Internal Medicine
DX: M54.50 Low back pain, unspecified (principal)
CPT/HCPCS: 97110; 97162; 97530

== ENCOUNTER → 2024-08-04 13:23 | Outpatient (BNVA) | payer MEDICARE, SELFPAY | PROVIDERS: PCP Internal Medicine; Visit Provider Internal Medicine ==

== ENCOUNTER → 2024-08-18 13:21 | Outpatient (BNVA) | payer MEDICARE, SELFPAY | PROVIDERS: PCP Internal Medicine; Visit Provider Internal Medicine ==

== ENCOUNTER 2024-08-20 13:05 | Outpatient (AMB) | payer MEDICARE, SELFPAY ==
[2024-08-20 13:19] LABS: Prothrombin Time Whole Bld POC 28.5 sec (11.1-13.5); ~PT, ~INR - Anti Coag Clinic 2.4 (0.9-1.1)
--- NOTE | 2024-08-20 13:22 | MHC.OFFVISCO ---
Intake Intake Visit Reasons: Anticoagulation Allergies azithromycin Allergy (Unknown, Verified 08/20/24 13:13) fever levofloxacin Allergy (Unknown, Verified 08/20/24 13:13) LE pain and weakness nitrofurantoin Allergy (Unknown, Verified 08/20/24 13:13) fever,park Nursing Note Pt to ACS for meter to meter testing. Pt's meter checked and good battery strentgh noted. Meter date and time accurate. INR performed by pt on home meter and was 2.4 in therapeutic range of 2-3 INR per ACS was also 2.4. Pt demonstrated good technique in performing the procedure. Medications reconciliation done. Risk scores done. Last 5 INR results matched with what was recorded by [facility]. No changes in health, diet, medications, or supplements, Denies any signs and symptoms of bleeding or bruising or clotting. Bleeding, bruising, clotting discussed Nutritional guidance given Dose: 3mg X 4 days and 3mg X 3 days F/U INR: 1 week Patient verbalizes understanding of instructions given Anti-Coag Initial Assessment Social Hx Patient Tobacco Use Status: Never used Tobacco alcohol intake: former Questionnaires HAS-BLED Does the patient had uncontrolled Hypertension?: No Does the patient have renal disease?: No Does the patient have liver disease?: No Does the patient have a history of stroke?: No Has the patient had major bleeding or predisposition to bleeding?: No Does the patient have labile INRs?: No Is the patient over 65 years of age?: Yes Is the patient on medications that gives them a predisposition to bleeding?: Yes Does the patient use alcohol?: No HAS-BLED Score: 2 CHADSVASC Age: 75 or over Gender: Female Does the patient have a history of CHF?: No Does the patient have a history of Hypertension?: No Does the patient have a history of Stroke/TIA/Thromboembolism?: Yes Does the patient have a history of Vascular Disease (prior VT, PAD or aortic plaque)?: No Does the patient have a history of Diabetes?: No CHADS VACS Score: 5 Jeff Prediction Score Rsk VTE Active Cancer: No Previous VTE, excluding superficial vein thrombosis: Yes Reduced mobility: Yes Already known Thrombophilic Condition: Yes With-in last month Trauma and/or Surgery: No Elderly 70 year or older: Yes Heart and/or Respiratory Failure: No Acute Myocardial infarction and/or Ischemic Stroke: No Acute Infection and/or Rheumatologic Disorder: No Obesity (BMI 30 or greater): No Ongoing Hormonal Treatment: No Score: 10 Jeff Score less than 4; Low Risk of VTE Jeff Score 4 or greater; High Risk of VTE Coding Level of Care Code Est Patient Level 2 Diagnoses Current use of anticoagulant therapy Z79.01 Assessment & Plan Assessment & Plan (1) Current use of anticoagulant therapy: Code(s): Z79.01 - FPC (current) use of anticoagulants Category: Medical
== END 2024-08-20 14:41 | disposition home or self-care (01) ==
LOC: HO.ACS 13:05
PROVIDERS: PCP Internal Medicine; Visit Provider Internal Medicine
DX: Z79.01 Long term (current) use of anticoagulants (principal)

== ENCOUNTER → 2024-08-20 13:05 | Outpatient (BNVA) | payer MEDICARE, SELFPAY | PROVIDERS: PCP Internal Medicine; Visit Provider Internal Medicine | DX: I26.99 Other pulmonary embolism without acute cor pulmonale (principal); Z79.01 Long term (current) use of anticoagulants; Z51.81 Encounter for therapeutic drug level monitoring | CPT/HCPCS: 85610; 99212 ==

== ENCOUNTER → 2024-08-28 15:27 | Outpatient (BNVA) | payer MEDICARE, SELFPAY | PROVIDERS: PCP Internal Medicine; Visit Provider Internal Medicine ==

== ENCOUNTER 2024-09-01 13:24 | Outpatient (AMB) | payer MEDICARE, SELFPAY ==
[2024-09-01 13:26] VITALS: BP 122/70; PULSE 65; O2SAT 95; BMI 20.2
--- NOTE | 2024-09-01 13:26 | A.OFFPC_ITS ---
Vital Signs 09/01/24 13:26 Height 5 ft 3 in Weight 114 lb BMI 20.2 BP 122/70 Blood Pressure Location Lt brachial Position Sitting Pulse 65 Pulse Source Pulse Oximeter Pulse Oximetry (%) 95 Oxygen Delivery Method Room Air Intake Visit Reasons: low back pain Allergies azithromycin Allergy (Unknown, Verified 09/01/24 13:26) fever levofloxacin Allergy (Unknown, Verified 09/01/24 13:26) LE pain and weakness nitrofurantoin Allergy (Unknown, Verified 09/01/24 13:26) fever,park celecoxib [From Celebrex] Adverse Reaction (Intermediate, Verified 09/01/24 13:34) tinnitus Tobacco use date assessed: 11/14/23 Fall risk assessment: No Falls in past year Last assessed Fall Risk: 09/01/24 Dental Screening Dental Screen Date: 11/14/23 HPI low back pain HPI Details 79-year-old female with a 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 Last seen in April 2024. Patient's bone density is due next month having osteoporosis colon test was last done in 2017. Mammograms up-to-date. Patient had some low back pain before and physical therapy done. X-ray did show moderate to marked degenerative disease disc L5-S1 with arthritis of mid to lower lumbar spine and sacroiliac joint. FOR[facility]LY [facility] Medical History Bronchiectasis COPD (chronic obstructive pulmonary disease) Cough History of Pseudomonas pneumonia History of pulmonary embolism Hypercholesterolemia Migraine Obstructive sleep apnea Thyroid nodule Surgical History History of bronchoscopy History of cataract surgery History of colonoscopy Family History Father No problems noted. Mother No problems noted. Sister No problems noted. Son No problems noted. Family/Other Heart disease Social History Housing: House Alcohol intake: former Patient Tobacco Use Status: Never used Tobacco Tobacco use type: Cigarette e-Cigarette/Vaping Use: Never Used Second Hand Smoke Exposure: Yes service: No Current occupational status: retired Cognitive needs: No Hearing needs: No Vision needs: Yes Questionnaire PHQ-9 Over the last 2 weeks, how often have you been bothered by any of the following problems? 1. Little interest or pleasure in doing things: not at all 2. Feeling down, depressed, or hopeless: not at all 3. Trouble falling or staying asleep, or sleeping too much: not at all 4. Feeling tired or having little energy: not at all 5. Poor appetite or overeating: not at all 6. Feeling bad about yourself - or that you are a failure or have let yourself or your family down: not at all 7. Trouble concentrating on things, such as reading the newspaper or watching television: not at all 8. Moving or speaking so slowly that other people could have noticed. Or the opposite - being so fidgety or restless that you have been moving around a lot more than usual: not at all 9. Thoughts that you would be better off or of hurting yourself in some way: not at all Total score: 0 Depression Screening Interpretation: Negative Depression Screening Done: Yes Source: Developed by Drs. Vincenzo Singh, Indira Dhaliwal, Pedro Luis Zhang and colleagues, with an educational lux from [employer]. Thrive Questionnaire Date Thrive assessed: 11/14/23 AUDIT C Alcohol Use Questionnaire (AUDIT-C) 1. How often do you have a drink containing alcohol?: Never 2. How many drinks containing alcohol do you have on a typical day when you are drinking?: 1 or 2 (none) 3. How often do you have six or more drinks on one occasion?: Never Total Score: 0 Score Reviewed/Action Taken: Yes LISA-7 AMB Questionnaire LISA-7 Date LISA - 7 assessed: 11/14/23 Source: Developed by Drs. Vincenzo Singh, Indira Dhaliwal, Pedro Luis Zhang and colleagues, with an educational lux from [employer]. Physical exam (Primary Care) Vital Signs: Last Vital Signs Pulse 65 09/01/24 13:26 BP 122/70 09/01/24 13:26 Pulse Ox 95 09/01/24 13:26 Oxygen Delivery Method Room Air 09/01/24 13:26 BMI result Body Mass Index 20.2 Tobacco/Smoking Status: Tobacco use Status Tobacco use date assessed 11/14/23 09/01/24 13:28 Patient Tobacco Use Status Never used Tobacco 09/01/24 13:28 Tobacco use type Cigarette 09/01/24 13:28 e-Cigarette/Vaping Use Never Used 09/01/24 13:28 PHQ-9: PHQ-9 Score PHQ-9: Total score 0 09/01/24 13:55 Depression Screening Interpretation: Negative Thrive Assessment: Date of Thrive Assessment Date Thrive assessed 11/14/23 09/01/24 13:28 Const General: alert; No acute distress Eyes Conjunctivae: conjunctivae normal Resp Auscultation: clear to auscultation bilaterally Cardio Rate: regular rate Rhythm: regular rhythm GI Inspection: Yes normal to inspection Extrem General: Yes normal to inspection and No edema Coding Level of Care Code Est Pt Level 4 (83727) Diagnoses Spondylosis of lumbar region without myelopathy or radiculopathy M47.816 Spinal osteoarthritis complication: without myelopathy or radiculopathy Degeneration of intervertebral disc of lumbar region with discogenic back pain M51.360 Disc-related pain type: discogenic back pain only Age-related osteoporosis without current pathological fracture M81.0 Osteoporosis type: age-related Presence of current pathological fracture: without current pathological f racture Pulmonary emphysema, unspecified emphysema type J43.9 COPD type: emphysema Emphysema type: unspecified Hypercholesterolemia E78.00 History of pulmonary embolism Z86.711 Colon cancer screening Z12.11 Assessment & Plan Assessment & Plan (1) Osteoarthritis of lumbar spine: Code(s): M47.816 - Spondylosis without myelopathy or radiculopathy, lumbar region Category: Medical Qualifiers: Spinal osteoarthritis complication: without myelopathy or radiculopathy Qualified Code(s): M47.816 - Spondylosis without myelopathy or radiculopathy, lumbar region Plan: Continue to keep active (2) Lumbar degenerative disc disease: Code(s): M51.369 - Other intervertebral disc degeneration, lumbar region without mention of lumbar back pain or lower extremity pain Category: Medical Qualifiers: Disc-related pain type: discogenic back pain only Qualified Code(s): M51.360 - Other intervertebral disc degeneration, lumbar region with discogenic back pain only Plan: Continue to keep active and do stretches. (3) Osteoporosis: Comment: September 2018, September 2020, 2021 Code(s): M81.0 - Age-related osteoporosis without current pathological fracture Category: Medical Qualifiers: Osteoporosis type: age-related Presence of current pathological fracture: without current pathological fracture Qualified Code(s): M81.0 - Age- related osteoporosis without current pathological fracture Plan: Reminded bone density in September (4) COPD (chronic obstructive pulmonary disease): Code(s): J44.9 - Chronic obstructive pulmonary disease, unspecified Category: Medical Qualifiers: COPD type: emphysema Emphysema type: unspecified Qualified Code(s): J43.9 - Emphysema, unspecified Plan: Continue with Advair and albuterol inhaler (5) Hypercholesterolemia: Code(s): E78.00 - Pure hypercholesterolemia, unspecified Category: Medical Plan: Avoid fried foods, chicken skin, eggs, butter margarine, pastries and meat. Be it pork or beef they have a lot of cholesterol on rosuvastatin 10 mg once a day. (6) History of pulmonary embolism: Comment: Two thousand eleven Code(s): Z86.711 - Personal history of pulmonary embolism Category: Medical Plan: Continue with anticoagulation (7) Colon cancer screening: Code(s): Z12.11 - Encounter for screening for malignant neoplasm of colon Category: Medical Plan: Referral to Gastroenterology Orders: Orders Complete Blood Count Auto Diff Today E78.00 - Pure hypercholesterolemia, unspecified Thyroid Stimulating Hormone Today E78.00 - Pure hypercholesterolemia, unspecified Vitamin D 25-OH Total Today E78.00 - Pure hypercholesterolemia, unspecified Ferritin Today M51.360 - Other intervertebral disc degeneration, lumbar region with discogenic back pain only IRON PROFILE Today M51.360 - Other intervertebral disc degeneration, lumbar region with discogenic back pain only Reticulocyte Count Today M51.360 - Other intervertebral disc degeneration, lumbar region with discogenic back pain only Comprehensive Met. Panel 3 Months E78.00 - Pure hypercholesterolemia, unspecified Comprehensive Met. Panel Today E78.00 - Pure hypercholesterolemia, unspecified Free T4 (Free Thyroxine) Today E78.00 - Pure hypercholesterolemia, unspecified Lipid Panel Today E78.00 - Pure hypercholesterolemia, unspecified Vitamin B12 and Folate 3 Months E78.00 - Pure hypercholesterolemia, unspecified Lipid Panel 3 Months E78.00 - Pure hypercholesterolemia, unspecified Referrals General Surgery Referral Z12.11 - Encounter for screening for malignant neoplasm of colon Medications: New simvastatin 40 mg PO BEDTIME 90 tabs 1RF E78.00 - Pure hypercholesterolemia, unspecified meloxicam 7.5 mg PO DAILY 30 tabs 0RF M51.360 - Other intervertebral disc deg eneration, lumbar region with discogenic back pain only meloxicam 7.5 mg PO DAILY 30 tabs 0RF M51.360 - Other intervertebral disc degeneration, lumbar region with discogenic back pain only Refilled omeprazole 20 mg PO DAILY 90 caps 3RF K21.9 - Gastro-esophageal reflux disease without esophagitis Discontinued rosuvastatin Discontinued Reason: Patient Refused 10 mg PO DAILY 90 tabs 3RF E78.00 - Pure hypercholesterolemia, unspecified
== END 2024-09-01 14:16 | disposition home or self-care (01) ==
PROVIDERS: PCP Internal Medicine; Visit Provider Internal Medicine
DX: M47.816 Spondylosis without myelopathy or radiculopathy, lumbar region (principal); M51.360 Other intervertebral disc degeneration, lumbar region with discogenic back pain only; M81.0 Age-related osteoporosis without current pathological fracture; J43.9 Emphysema, unspecified; E78.00 Pure hypercholesterolemia, unspecified; Z86.711 Personal history of pulmonary embolism; Z12.11 Encounter for screening for malignant neoplasm of colon

== ENCOUNTER → 2024-09-01 13:24 | Outpatient (BNVA) | payer MEDICARE, SELFPAY | PROVIDERS: PCP Internal Medicine; Visit Provider Internal Medicine | DX: M47.816 Spondylosis without myelopathy or radiculopathy, lumbar region (principal); M51.360 Other intervertebral disc degeneration, lumbar region with discogenic back pain only; M81.0 Age-related osteoporosis without current pathological fracture; J43.9 Emphysema, unspecified; E78.00 Pure hypercholesterolemia, unspecified; Z86.711 Personal history of pulmonary embolism | CPT/HCPCS: 99212 ==

== ENCOUNTER → 2024-09-23 10:53 | Outpatient (BNVA) | payer MEDICARE, SELFPAY | PROVIDERS: PCP Internal Medicine; Visit Provider Internal Medicine ==

== ENCOUNTER → 2024-10-20 11:46 | Outpatient (BNVA) | payer MEDICARE, SELFPAY | PROVIDERS: PCP Internal Medicine; Visit Provider Internal Medicine ==

== ENCOUNTER → 2024-11-03 09:59 | Outpatient (BNVA) | payer MEDICARE, SELFPAY | PROVIDERS: PCP Internal Medicine; Visit Provider Internal Medicine ==

== ENCOUNTER → 2024-11-08 14:41 | Outpatient (BNV) | payer MEDICARE, SELFPAY | PROVIDERS: PCP Internal Medicine; Visit Provider Radiology Diagnostic Radiology | DX: M48.061 Spinal stenosis, lumbar region without neurogenic claudication (principal); M99.63 Osseous and subluxation stenosis of intervertebral foramina of lumbar region | CPT/HCPCS: 72148 ==

== ENCOUNTER 2024-11-08 14:42 | Outpatient (REF) | payer MEDICARE, SELFPAY ==
--- NOTE | ~2024-11-08 | MR_ITS ---
EXAMINATION: MR LUMBAR SPINE WITHOUT CONTRAST CLINICAL INFORMATION: Constant low back pain mostly on the right side. COMPARISON: Lumbar spine x-ray 04/21/2024 MRI lumbar spine 04/24/2006 TECHNIQUE: MRI of the lumbar spine was obtained using routine sequences without contrast. FINDINGS: For consistency from previous reading there is a rudimentary disc at L5-S1 disc level and partial lumbarized S1 vertebra. . There is maintained lumbar lordosis. There is grade 1 anterolisthesis L5 over S1 Rest of the vertebral alignment is normal. There is loss of L4-5 disc height with mild disc desiccation changes seen throughout the lumbar disc levels. There is mild loss of T12-L1 and T11-12 disc levels. There is no disc bulge, herniation or spinal canal stenosis. The L1-2 disc levels appears unremarkable. At L2-3 disc level there is no central disc bulge, herniation or spinal canal stenosis. There is mild inferolateral recess narrowing of neural foramina. At L3-4 disc level there is mild diffuse bulge flattening the ventral thecal sac but without spinal canal stenosis. There is mild ligamentum flavum hypertrophy slightly asymmetrically enlarged on the left. There is mild inferolateral recess narrowing of bilateral neural foramina. At L4-5 disc level there is a broad-based diffuse bulge mildly flattening the ventral thecal sac without spinal canal stenosis. There is mild bilateral facet joint hypertrophy with mild inferolateral recess narrowing of neural foramina. At L5-S1 disc level there is grade 1 anterolisthesis resulting in moderate pseudo disc bulge and moderate circumferential canal stenosis. There is underlying moderate bilateral facet joint and ligament flavum hypertrophy. There is a intraspinal synovial cyst of the right facet joint in close approximation to the exiting right S1 nerve root. S1-2 disc level there is rudimentary disc with no disc bulge, herniation or spinal canal stenosis. The neural foramina are patent bilaterally. There are endplate changes at the L5-S1 and L4-5 disc levels. Rest of the bone marrow signal is normal. Conus medullaris terminates-2 disc level and appears normal in morphology. The paravertebral soft tissues are normal. With bilateral extrarenal kidney pelvises right greater than left. Subtle finding of a normal appearing aortocaval 6 mm lymph node on axial image 22/10. MR/MR lumbar spine wo con IMPRESSION: Grade 1 anterolisthesis L5-S1 resulting in moderate diffuse pseudo disc bulge and moderate circumferential canal stenosis. There is bilateral narrowing of neural foramina. Minimal disc bulges at L4-5 and L3-4 disc levels with asymmetric ligamentum flavum hypertrophy at L3-4 disc level. Mild inferolateral recess narrowing of bilateral neural foramina at these described levels. Please note there is a rudimentary disc at S1 and S2 disc level. Electronically signed by: Grayson Maddox MD 11/09/2024 09:07 AM DENISE
== END 2024-11-08 14:43 | disposition home or self-care (01) ==
LOC: HO.MRI 14:42
PROVIDERS: PCP Internal Medicine; Visit Provider Internal Medicine
DX: M51.360 Other intervertebral disc degeneration, lumbar region with discogenic back pain only (principal)
CPT/HCPCS: 72148

== ENCOUNTER 2024-11-17 12:51 | Outpatient (AMB) | payer MEDICARE, SELFPAY ==
--- NOTE | 2024-11-17 12:55 | AM.OFFVISMDC ---
Intake Vital Signs 11/17/24 12:56 Height 5 ft 3 in Weight 113 lb BMI 20.0 BP 118/62 Blood Pressure Location Lt brachial Position Sitting Pulse 66 Pulse Source Pulse Oximeter Pulse Oximetry (%) 97 Oxygen Delivery Method Room Air Intake Visit Reasons: swv Allergies azithromycin Allergy (Unknown, Verified 11/17/24 12:56) fever levofloxacin Allergy (Unknown, Verified 11/17/24 12:56) LE pain and weakness nitrofurantoin Allergy (Unknown, Verified 11/17/24 12:56) fever,park celecoxib [From Celebrex] Adverse Reaction (Intermediate, Verified 11/17/24 12:56) tinnitus Medication List - Last Reconciled 11/17/24 by Kelly Ford MD acetaminophen 1,000 mg PO BID PRN albuterol sulfate 90 mcg/actuation 2 puffs inhalation Q6H PRN 90 days fluticasone propion-salmeterol 45-21 mcg/actuation (Advair HFA) inhalation levalbuterol HCl 0.63 mg PO Q4H PRN levalbuterol tartrate 45 mcg/actuation 2 puffs inhalation Q4-6H omeprazole 20 mg PO DAILY quetiapine (Seroquel) 25 mg PO BEDTIME 90 days simvastatin 40 mg PO BEDTIME sumatriptan succinate 100 mg PO DAILY PRN warfarin (Jantoven) 3 mg See Protocol PO DAILY 90 days HPI swv HPI Details plapitations and R shoulder pain. 2 months, deny trauma The patient is an 79-year-old female presenting with an annual wellness visit. She has a history of hypercholesterolemia managed with simvastatin, chronic obstructive pulmonary disease for which she uses an albuterol inhaler and Advair, and migraines. She experienced a pulmonary embolism in 2010. She has moderate persistent asthma, generalized anxiety disorder, and lumbar disc degeneration with an MRI in November 2023 showing Grade 1 foraminal cyst at L5-S1 with moderate diffuse disc bulge and moderate central canal stenosis, along with bilateral narrowing of the neuroforamina at L4-5. Her past management includes ongoing pain management with [id number] medications and maintained mobility exercises. - Bone density screening done in September 2022; next due in accordance with standard screening guidelines - Colonoscopy last done in 2017; discussion for rescreening initiated - Mammogram completed in November 2023 - Current medications include simvastatin, albuterol inhaler, and Advair for management of chronic conditions - Musculoskeletal: Reports lumbar disc degeneration - MRI of lumbar spine in November 2023: Grade 1 foraminal cyst L5-S1, moderate diffuse disc bulge, moderate central canal stenosis, bilateral narrowing of the neuroforamina L4-5 [facility] Medical History Bronchiectasis COPD (chronic obstructive pulmonary disease) Cough History of Pseudomonas pneumonia History of pulmonary embolism Hypercholesterolemia Migraine Obstructive sleep apnea Thyroid nodule Surgical History History of bronchoscopy History of cataract surgery History of colonoscopy Family History Father No problems noted. Mother No problems noted. Sister No problems noted. Son No problems noted. Family/Other Heart disease Social History Housing: House Alcohol intake: former Patient Tobacco Use Status: Never used Tobacco Tobacco use type: Cigarette e-Cigarette/Vaping Use: Never Used Second Hand Smoke Exposure: Yes service: No Current occupational status: retired Cognitive needs: No Hearing needs: No Vision needs: Yes Questionnaire Medicare Wellness Checkup What is your age?: 78 or older What gender do you identify with?: female During the past 4 weeks, how much have you been bothered by emotional problems such as feeling anxious, depressed, irritable, sad or downhearted, and blue?: slightly During the past 4 weeks, has your physical & emotional health limited your social activities with family, friends, neighbors, or groups?: slightly During the past 4 weeks, how much bodily pain have you generally had?: moderate pain During the past 4 weeks, was someone available to help you if you needed & wanted help?: yes, as much as I wanted During the past 4 weeks, what was the hardest physical activity you could do for at least 2 minutes?: moderate Can you get to places out of walking distance without help? (For eg., can you travel alone on buses, taxis or drive your car?): Yes Can you go shopping for groceries or clothes without someone's help?: No Can you prepare your own meals?: Yes Can you do your housework without help?: Yes Because of any health problems, do you need the help of another person with your personal care needs such as eating, bathing, dressing or getting around the house?: No Can you handle your own money without help?: Yes During the past 4 weeks, how would you rate your health in general?: fair During the past 4 weeks how have things been going for you?: good & bad parts about equal Are you having difficulties driving your car?: no Do you always fasten your seat belt when you are in a car?: yes, usually During past 4 weeks, have you been bothered by the following: never: Falling or dizzy when standing up, Sexual problems?, Trouble eating well?, Teeth or denture problems?, Problems using the telephone? and Tiredness or fatigue? Have you fallen 2 or more times in the past year?: No Are you afraid of falling?: No Are you a smoker?: no During the past 4 weeks, how many drinks of wine, beer, or other alcoholic beverages did you have?: no alcohol at all Do you exercise for about 20 minutes 3 or more times a week?: yes, most of the time Have you been given information to help with the following?: yes: Hazards in your house that might hurt you? and yes: Keeping track of your medications? How often do you have trouble taking medicines the way you have been told to take them?: I always take medicine as prescribed How confident are you that you can control & manage most of your health problems?: somewhat confident What is your race?: White PHQ-9 Over the last 2 weeks, how often have you been bothered by any of the following problems? 1. Little interest or pleasure in doing things: more than half the days 2. Feeling down, depressed, or hopeless: more than half the days 3. Trouble falling or staying asleep, or sleeping too much: not at all 4. Feeling tired or having little energy: more than half the days 5. Poor appetite or overeating: not at all 6. Feeling bad about yourself - or that you are a failure or have let yourself or your family down: several days 7. Trouble concentrating on things, such as reading the newspaper or watching television: not at all 8. Moving or speaking so slowly that other people could have noticed. Or the opposite - being so fidgety or restless that you have been moving around a lot more than usual: not at all 9. Thoughts that you would be better off or of hurting yourself in some way: not at all Total score: 7 Depression Screening Interpretation: Positive Depression Screening Done: Yes 63386 - PHQ-9 Billing: Yes Source: Developed by Drs. Vincenzo Singh, Indira Dhaliwal, Pedro Luis Zhang and colleagues, with an educational lux from [employer]. LISA-7 AMB Questionnaire LISA-7 Date LISA - 7 assessed: 11/17/24 Feeling nervous, anxious, or on edge: 0 = Not at all Not being able to stop or control worryin = Not at all Worrying too much about different things: 0 = Not at all Trouble relaxin = Not at all Being so restless that it is hard to sit still: 0 = Not at all Becoming easily annoyed or irritable: 0 = Not at all Feeling afraid as if something awful might happen: 0 = Not at all Total LISA-7 score (0-4 normal; 5-9 mild; 10-14 moderate; 15-21 severe): 0 Source: Developed by Drs. Vincenzo Singh, Indira Dhaliwal, Pedro Luis Zhang and colleagues, with an educational lux from [employer]. LISA-7 Assessment Billing LISA-7 Assessment Tool: LISA-7 Assessment 55435 Thrive Questionnaire Date Thrive assessed: 11/17/24 I am a: Patient What is your living situation today?: I have a steady place to live Within the past 12 months, did the food you bought not last and you didn't have the money to get more?: Never true Within the past 12 months, did you worry whether your food would run out before you got money to buy more?: Never true Do you have trouble paying for medicines?: No Do you have trouble getting transportation to medical appointments?: No Do you have trouble paying your heating and electricity bill?: No Do you have trouble taking care of your child, family member or friend?: No Do you have trouble with day-to-day activities such as bathing, preparing meals, shopping, managing finances, etc.?: No Are you currently unemployed and looking for a job?: No Are you interested in more education?: No Currently or been in a relationship where the following occur: No concerns reported THRIVE Score: 0 Review of Systems Const Denies poor appetite and Denies weakness Eyes Denies no additional complaints ENT Reports Normal hearing present, Denies dizziness, Denies nasal congestion, Denies tinnitus and Denies sore throat Card Denies chest pain, Denies syncope, Denies rapid heart rate and Denies dyspnea Resp Denies cough and Denies dyspnea GI Denies change in stool character, Reports constipation, Denies diarrhea, Denies nausea and Denies vomiting Denies urinary frequency, Denies difficulty voiding and Denies dysuria Neuro Reports Normal hearing present, Denies confusion, Denies dizziness, Denies syncope and Denies weakness Psych Denies confusion Physical Exam Vital Signs: Oxygen Delivery Method Room Air 11/17/24 12:56 BMI result Body Mass Index 20.0 Const General: No confusion Orientation/consciousness: No confusion HEENT Head: Yes normocephalic Ears: external ears normal and TM's normal bilaterally Face and sinus: Yes normal facial exam Mouth: moist mucous membranes Throat: Yes tonsils normal Eyes Conjunctivae: conjunctivae normal Pupils: Equal, round and reactive pupils present and Pupil accommodation reflex normal Direct Ophthalmoscopy: normal light reflex Neck Neck: No lymphadenopathy Thyroid: Thyroid normal Chest Chest palpation & inspection: normal inspection of the chest Resp Effort & Inspection: normal respiratory effort and no audible wheezes Auscultation: clear to auscultation bilaterally, no crackles, no wheezes and lung sounds not diminished Cardio Rate: regular rate Rhythm: regular rhythm Peripheral pulses: radial pulses present and dorsalis pedis present GI Palpation (GI): no masses Auscultation: normal bowel sounds and normoactive bowel sounds Rectal Exam - Female: deferred Skin General skin exam: no rashes or lesions noted Rashes: no rashes Neuro General: No confusion Cranial nerves: Yes Equal, round and reactive pupils present and Yes Normal hearing present Cognition (Neuro): normal cognition Gait exam (Neuro): Normal gait present Motor exam (neuro): 5/5 motor strength present throughout Deep tendon reflexes (DTR's): Right brachioradialis reflex intensity grade: 2+, Left brachioradialis reflex intensity grade: 2+, Right patellar reflex intensity grade: 2+ and Left patellar reflex intensity grade: 2+ Extrem General: No edema Assessment & Plan Assessment & Plan (1) Medicare annual wellness visit, subsequent: Code(s): Z00.00 - Encounter for general adult medical examination without abnormal findings Plan: Patient is advised to eat healthy, keep well hydrated, keep active and have adequate sleep. (2) Osteoporosis: Comment: September 2018, September 2020, 2021 Code(s): M81.0 - Age-related osteoporosis without current pathological fracture Qualifiers: Osteoporosis type: age-related Presence of current pathological fracture: without current pathological fracture Qualified Code(s): M81.0 - Age-related osteoporosis without current pathological fracture Plan: Patient is due for bone density (3) Hypercholesterolemia: Code(s): E78.00 - Pure hypercholesterolemia, unspecified Plan: Avoid fried foods, chicken skin, eggs, butter margarine, pastries and meat. Be it pork or beef they have a lot of cholesterol on simvastatin 40 mg at bedtime (4) COPD (chronic obstructive pulmonary disease): Code(s): J44.9 - Chronic obstructive pulmonary disease, unspecified Qualifiers: COPD type: emphysema Emphysema type: unspecified Qualified Code(s): J43.9 - Emphysema, unspecified Plan: Continue with the albuterol inhaler and Advair (5) History of pulmonary embolism: Comment: Two thousand eleven Code(s): Z86.711 - Personal history of pulmonary embolism Plan: Patient is on Coumadin (6) Generalized anxiety disorder: Comment: decline counselling, doing good Code(s): F41.1 - Generalized anxiety disorder Plan: Continue with present medication (7) Lumbar degenerative disc disease: Code(s): M51.369 - Other intervertebral disc degeneration, lumbar region without mention of lumbar back pain or lower extremity pain Qualifiers: Disc-related pain type: discogenic back pain only Qualified Code(s): M51.360 - Other intervertebral disc degeneration, lumbar region with discogenic back pain only (8) Mild depression: Code(s): F32.A - Depression, unspecified (9) Palpitation: Code(s): R00.2 - Palpitations (10) Epistaxis: Code(s): R04.0 - Epistaxis Plan - Continue simvastatin 50 mg daily for hypercholesterolemia - Maintain current pulmonary therapy regimen including albuterol inhaler and Advair for COPD and asthma management - Monitor migraine control, adjust medication if necessary - Continue monitoring anxiety symptoms with current management strategies - Review options for lumbar disc degeneration management, including physical therapy and pain management techniques - Await results of bone density and mammogram screenings for further assessment I discussed with the patient the current management plan for her chronic conditions, emphasizing the importance of adherence to medications for hypercholesterolemia, COPD, and asthma. We reviewed the MRI findings from November 2023 and discussed conservative management options for lumbar disc degeneration, including pain management and physical therapy. Recommendations for future screenings and health maintenance were also outlined, aligning with standard guidelines. We agreed to monitor the effectiveness of the current migraine and anxiety treatments and make necessary adjustments. - Continue all prescribed medications as directed - Schedule a follow-up for bone density and mammogram results interpretation if necessary - Practice deep breathing exercises and other recommended techniques to manage anxiety - Monitor and report any exacerbation of migraines or respiratory symptoms promptly - Engage in prescribed physical therapy exercises for lumbar support and pain alleviation Orders: Orders ECG 3 day holter monitor Today R00.2 - Palpitations Referrals Ear/Nose/Throat Referral R04.0 - Epistaxis Quality Reporting (2019) Depression/Bipolar (159/160/161/177) PHQ-9: Total score: 7 Coding Level of Care Code Medicare Subsequent (G0439) Diagnoses Medicare annual wellness visit, subsequent Z00.00 Age-related osteoporosis without current pathological fracture M81.0 Osteoporosis type: age-related Presence of current pathological fracture: without current pathological fracture Hypercholesterolemia E78.00 Pulmonary emphysema, unspecified emphysema type J43.9 COPD type: emphysema Emphysema type: unspecified History of pulmonary embolism Z86.711 Generalized anxiety disorder F41.1 Degeneration of intervertebral disc of lumbar region with discogenic back pain M51.360 Disc-related pain type: discogenic back pain only Mild depression F32.A Palpitation R00.2 Epistaxis R04.0 Additional Codes LISA-7 Assessment Billing - LISA-7 Assessment Tool: LISA-7 Assessment 86066 ([id number]) PHQ-9 - 50932 - PHQ-9 Billing: Yes ([id number])
[2024-11-17 12:56] VITALS: BP 118/62; PULSE 66; O2SAT 97
--- OUTSIDE RECORDS SUMMARY | 2024-11-17 13:53 | XMS_ITS | Clinical Summary ---
Author Organization [facility] it Address [address] [place] [address] Care Team Providers Care Fit Model Name Role Phone Kelly Ford MD Primary Care Provider [phone] Medications Advair HFA 45-21 mcg/actuation inhaler USE 2 INHALATIONS ORALLY TWICE DAILY 36 g 3 4 Active Surgical History Surgery Date Site/Laterality Comments TONSILLECTOMY PROCEDURE: HISTORICAL TONSILLECTOMY; COMMENT: and adenoids FOOT SURGERY PROCEDURE: HISTORICAL FOOT SURGERY TUBAL LIGATION PROCEDURE: HISTORICAL TUBAL LIGATION COLONOSCOPY 2007 PROCEDURE: HISTORICAL COLONOSCOPY; COMMENT: Dr Powers COLONOSCOPY 2012 PROCEDURE: HISTORICAL COLONOSCOPY UPPER GASTROINTESTINAL ENDOSCOPY 2012 PROCEDURE: [place] UPPER GI ENDOSCOPY PERFORMED; COMMENT: Dr Powers OTHER SURGICAL HISTORY 03/2017 PROCEDURE: [place] BRNCHSC INCL FLUOR GDNCE DX W/CELL WASHG SPX; COMMENT: Pseudomonas Medical History Medical History Date Comments Allergic rhinitis 11/05/2017 DX:Allergic rh initis Arthritis 12/13/2016 DX:Arthritis Asthma 06/06/2017 DX:Asthma Bronchiectasis (CMS/HCC) 05/13/2017 DX:Bron chiectasis (HCC) Gastroesophageal reflux disease 12/13/2016 DX:Gastroesophageal reflux disease History of colon cancer 11/05/2017 DX:Histo ry of colon cancer Osteoporosis 12/13/2016 DX:Osteoporosis Pulmonary nodule 12/21/2016 DX:Pulmonary no dule History of DVT (deep vein thrombosis) 12/13/2016 DX:History of DVT (deep vein thrombosis); COMMENT: 2010 Hyperlipidemia 12/13/2016 DX:Hyperlipidemi a History of pulmonary embolism 11/05/2017 DX :History of pulmonary embolism; COMMENT: 2010 History of Pseudomonas pneumonia 04/29/2017 DX:History of Pseudomonas pneumonia Migraine 01/06/2019 DX:Migraine Obstructive sleep apnea syndrome 05/13/2017 DX:Obstructive sleep apnea syndrome; COMMENT: CPAP Family History Medical History Relation Name Comments Coronary artery disease Mother's side No Known Problems Sister Relation Name Status Comments Father Mother Mother's side Sister Social History Tobacco Use Types Packs/Day Years Used Date Smoking Tobacco: Never Smokeless Tobacco: Never Alcohol Use Standard Drinks/Week Comments Not Currently 1 (1 standard drink = 0.6 oz pur e alcohol) Comments Unknown Sex and Gender Information Value Date Recorded Sex Assigned at Not on file Legal Sex Female 7:15 AM EST Gender Identity Not on file Sexual Orientation Not on file Obstetrics History Last Filed Vital Signs Vital Sign Reading Time Taken Comments Blood Pressure 112/68 03/25/2024 2:45 PM EDT Pulse 66 03/25/2024 2:45 PM EDT Temperature - - Respiratory Rate - - Oxygen Saturation - - Inhaled Oxygen Concentration - - Weight 51.9 kg (114 lb 6.4 oz) 03/25/2024 2:45 P M EDT Height 160 cm (5' 3 ) 03/25/2024 2:45 PM EDT Body Mass Index 20.26 03/25/2024 2:45 PM EDT Plan of Treatment Health Maintenance Due Date Last Done Comments DTaP,Tdap,and Td Vaccines (1 - Tdap) 1950 Zoster Vaccines (1 of 2) 1993 RSV Immunization Patients 60 + Years Old (1 - 1-dose 75+ series) 2018 Cholesterol Screening (Lipid Panel) 09/15/2022 Depression Screening 09/15/2022 Falls Risk Assessment 09/15/2022 Osteoporosis Screening (Bone Density Screening) 09/15/2022 Social Influencers of Health Screening 09/15/2022 COVID-19 Vaccine (4 - 2023-2 5 season) 2024 09/17/2021, 12/20/2020, 11/22/2020 Influenza Vaccine (#1) 2024 , 08/06/2017 Pneumococcal Vaccine: 50+ Years Completed 08/08/2017, 11/28/2016, 10/22/2005 HIB Vaccines Aged Out No longer eligi ble based on patient's age to complete this topic HPV Vaccines Aged Out No longer eligi ble based on patient's age to complete this topic Hepatitis A Vaccines Aged Out No long er eligible based on patient's age to complete this topic Hepatitis B Vaccines Aged Out No long er eligible based on patient's age to complete this topic IPV Vaccines Aged Out No longer eligi ble based on patient's age to complete this topic MMR Vaccines Aged Out No longer eligi ble based on patient's age to complete this topic Meningococcal ACWY Vaccine Aged Out N o longer eligible based on patient's age to complete this topic Meningococcal B Vacine Aged Out No lo nger eligible based on patient's age to complete this topic RSV Immunization Patients Under 20 months Aged Out No longer eligible b ased on patient's age to complete this topic Varicella Vaccines Aged Out No longer eligible based on patient's age to complete this topic Care Teams Fit Model Relationship Specialty Start Date End Date Kelly Ford MD [address] [place] [address] [address] [facility] [place] [address] PCP - General Internal Medicine 03/10/19
== END 2024-11-17 13:54 | disposition home or self-care (01) ==
PROVIDERS: PCP Internal Medicine; Visit Provider Internal Medicine
DX: Z00.00 Encounter for general adult medical examination without abnormal findings (principal); M81.0 Age-related osteoporosis without current pathological fracture; E78.00 Pure hypercholesterolemia, unspecified; J43.9 Emphysema, unspecified; Z86.711 Personal history of pulmonary embolism; F41.1 Generalized anxiety disorder; M51.360 Other intervertebral disc degeneration, lumbar region with discogenic back pain only; F32.A Depression, unspecified; R00.2 Palpitations; R04.0 Epistaxis

== ENCOUNTER → 2024-11-17 12:51 | Outpatient (BNVA) | payer MEDICARE, SELFPAY | PROVIDERS: PCP Internal Medicine; Visit Provider Internal Medicine | DX: Z00.00 Encounter for general adult medical examination without abnormal findings (principal); M81.0 Age-related osteoporosis without current pathological fracture; E78.00 Pure hypercholesterolemia, unspecified; J43.9 Emphysema, unspecified; F41.1 Generalized anxiety disorder; F32.A Depression, unspecified; M51.360 Other intervertebral disc degeneration, lumbar region with discogenic back pain only; R00.2 Palpitations; R04.0 Epistaxis; Z86.711 Personal history of pulmonary embolism | CPT/HCPCS: 96127 ==

== ENCOUNTER → 2024-11-24 12:45 | Outpatient (REF) | payer MEDICARE, SELFPAY | LOC: HO.CARD 12:45 | PROVIDERS: PCP Internal Medicine; Visit Provider Internal Medicine | DX: R00.2 Palpitations (principal) | CPT/HCPCS: 93242 ==

== ENCOUNTER → 2024-11-24 12:50 | Outpatient (BNV) | payer MEDICARE, SELFPAY | PROVIDERS: PCP Internal Medicine; Visit Provider Internal Medicine Cardiovascular Disease | DX: I49.3 Ventricular premature depolarization (principal) | CPT/HCPCS: 93244 ==

== ENCOUNTER 2024-11-30 13:43 | Outpatient (AMB) | payer MEDICARE, SELFPAY ==
--- NOTE | 2024-11-30 13:45 | MHC.OFFVIS ---
Vital Signs 11/30/24 13:46 Height 5 ft 3 in Weight 115 lb 6 oz BMI 20.4 Intake Visit Reasons: colonoscopy screening Intake Note: This patient presents for colonoscopy screening. Pt c/o; no complaints at this time. Social Services Required: No Accompanied by: Family/Other Allergies azithromycin Allergy (Unknown, Verified 11/30/24 13:53) fever levofloxacin Allergy (Unknown, Verified 11/30/24 13:53) LE pain and weakness nitrofurantoin Allergy (Unknown, Verified 11/30/24 13:53) fever,park celecoxib [From Celebrex] Adverse Reaction (Intermediate, Verified 11/30/24 13:53) tinnitus Medication List - Last Reconciled 11/30/24 by Emmanuel Zavala MD acetaminophen 1,000 mg PO BID PRN albuterol sulfate 90 mcg/actuation 2 puffs inhalation Q6H PRN 90 days fluticasone propion-salmeterol 45-21 mcg/actuation (Advair HFA) inhalation levalbuterol HCl 0.63 mg PO Q4H PRN levalbuterol tartrate 45 mcg/actuation 2 puffs inhalation Q4-6H omeprazole 20 mg PO DAILY quetiapine (Seroquel) 25 mg PO BEDTIME 90 days simvastatin 40 mg PO BEDTIME sumatriptan succinate 100 mg PO DAILY PRN warfarin (Jantoven) 3 mg See Protocol PO DAILY 90 days HPI HPI colonoscopy screening: Details: [age] year old female referred for screening colonoscopy. She says her last colonoscopy was in [place] about 6 years ago. She says a polyp was removed and she was told to have another 1 in 5 years. She denies any GI complaints. Denies any family history of colon cancer She says she is being currently worked up because of palpitations. She is on anticoagulation with Coumadin for a previous DVT. REPLACED BY [facility] Medical History Cough History of Pseudomonas pneumonia History of pulmonary embolism COPD (chronic obstructive pulmonary disease) Thyroid nodule Migraine Hypercholesterolemia Obstructive sleep apnea Bronchiectasis Surgical History History of cataract surgery History of bronchoscopy History of colonoscopy Family History Father No problems noted. Mother No problems noted. Sister No problems noted. Son No problems noted. Family/Other Heart disease Social History Housing: House Alcohol intake: former Patient Tobacco Use Status: Never used Tobacco Tobacco use type: Cigarette e-Cigarette/Vaping Use: Never Used Second Hand Smoke Exposure: Yes service: No Current occupational status: retired Cognitive needs: No Hearing needs: No Vision needs: Yes Review of Systems Const Denies chills and Denies fever(s) Card Denies chest pain, Reports irregular heart rhythm, Denies dyspnea and Denies dyspnea on exertion Resp Denies cough, Denies dyspnea and Denies dyspnea on exertion GI Denies hematochezia and Denies change in bowel habits Denies hematuria Musc Reports abnormal gait, Reports back pain, Reports arthralgias and Denies limited range of motion Neuro Reports abnormal gait, Denies focal weakness and Denies convulsions Psych Denies depression and Denies mood swings Physical Exam Vital Signs: BMI result Body Mass Index 20.4 Const Other: Using a walker General: comfortable and no acute distress Orientation/consciousness: patient oriented x3 Neck Neck: Yes no lymphadenopathy Resp Auscultation: clear to auscultation bilaterally Cardio Rhythm: regular rhythm GI Palpation (GI): Soft to palpation, nontender and no guarding Neuro General: patient oriented x3 Assessment & Plan Assessment & Plan (1) Colon cancer screening: Code(s): Z12.11 - Encounter for screening for malignant neoplasm of colon Category: Medical Plan: She had a polyp on her last colonoscopy 6 years ago. She wants to proceed with another colonoscopy because of this. She says she is healthy enough for this I reviewed the technique of colonoscopy. I explained the risks including but not limited to bleeding and perforation, as well as the benefits and alternatives. She understands and wants to proceed. She understands that she has to stop her Coumadin for 3 days prior to her procedure. She is currently being worked up by her primary care physician for palpitations. Coding Level of Care Code New Pt Level 3 (73875) Diagnoses Colon cancer screening Z12.11
[2024-11-30 13:46] VITALS: BMI 20.4
--- OUTSIDE RECORDS SUMMARY | 2024-11-30 15:42 | XMS_ITS | Clinical Summary ---
Author Organization [facility] it Address [address] [place] [address] Care Team Providers Care Diet Tech Name Role Phone Kelly Ford MD Primary Care Provider [phone] Medications Advair HFA 45-21 mcg/actuation inhaler USE 2 INHALATIONS ORALLY TWICE DAILY 36 g 3 4 Active Surgical History Surgery Date Site/Laterality Comments TONSILLECTOMY PROCEDURE: HISTORICAL TONSILLECTOMY; COMMENT: and adenoids FOOT SURGERY PROCEDURE: HISTORICAL FOOT SURGERY TUBAL LIGATION PROCEDURE: HISTORICAL TUBAL LIGATION COLONOSCOPY 2007 PROCEDURE: HISTORICAL COLONOSCOPY; COMMENT: Dr Powers COLONOSCOPY 2012 PROCEDURE: HISTORICAL COLONOSCOPY UPPER GASTROINTESTINAL ENDOSCOPY 2012 PROCEDURE: MT UPPER GI ENDOSCOPY PERFORMED; COMMENT: Dr Powers OTHER SURGICAL HISTORY 03/2017 PROCEDURE: MT BRNCHSC INCL FLUOR GDNCE DX W/CELL WASHG [...] Comments DTaP,Tdap,and Td Vaccines (1 - Tdap) 1962 Zoster Vaccines (1 of 2) 1993 RSV [...] age to complete this topic Care Teams Diet Tech Relationship Specialty Start Date End Date Kelly Ford MD [address] [place] [address] [address] [facility] [place] [address] PCP - General Internal Medicine 03/10/19
== END 2024-11-30 14:08 | disposition home or self-care (01) ==
PROVIDERS: PCP Internal Medicine; Visit Provider Surgery
DX: Z12.11 Encounter for screening for malignant neoplasm of colon (principal)
CPT/HCPCS: 99203

== ENCOUNTER → 2024-11-30 13:43 | Outpatient (BNVA) | payer MEDICARE, SELFPAY | PROVIDERS: PCP Internal Medicine; Visit Provider Surgery | DX: Z12.11 Encounter for screening for malignant neoplasm of colon (principal) | CPT/HCPCS: 99202 ==

== ENCOUNTER → 2024-12-08 12:02 | Outpatient (BNVA) | payer MEDICARE, SELFPAY | PROVIDERS: PCP Internal Medicine; Visit Provider Internal Medicine ==

== ENCOUNTER → 2024-12-22 11:17 | Outpatient (BNVA) | payer MEDICARE, SELFPAY | PROVIDERS: PCP Internal Medicine; Visit Provider Internal Medicine ==

== ENCOUNTER → 2025-01-05 13:32 | Outpatient (BNVA) | payer MEDICARE, SELFPAY | PROVIDERS: PCP Internal Medicine; Visit Provider Internal Medicine Medical Oncology ==

== ENCOUNTER 2025-01-14 10:16 | Outpatient (REF) | payer MEDICARE, SELFPAY ==
--- NOTE | ~2025-01-14 | XR_ITS ---
CLINICAL HISTORY: M25.511 - Pain in right shoulder 3 view right shoulder Comparison: None Findings: Bones intact. No dislocations. Mild degenerative change of the acromioclavicular and glenohumeral joints. No erosions. No radiopaque foreign body. IMPRESSION: 1. No acute findings 2. Mild degenerative change This document has been electronically signed by: Jeferson Stephens MD on 01/15/2025 11:53:29
--- OUTSIDE RECORDS SUMMARY | 2025-01-14 17:43 | XMS_ITS | Clinical Summary ---
Author Organization 175 [facility] Address [address] [place] [address] Phone Care Team Providers Care Specimen Collector Name Role Phone Kelly Ford MD Primary Care Provider Allergies Active [...] 01/06/2019 Allergic rhinitis 11/05/2017 Asthma 06/06/2017 Bronchiectasis ([facility] V24, [facility] V28) 2016 Pulmonary nodule 12/21/2016 Arthritis 12/13/2016 Gastroesophageal reflux disease 12/13/2016 Osteoporosis 12/13/2016 Overview (12/01/2024): Actonel x 10 yrs, Stopped 2011 Hyperlipidemia 12/13/2016 Encounters Date Type Department Care Team Description 12/23/2024 2:21 PM EDT - 12/23/2024 11:59 PM EDT [facility] at [address] [address] Encounter for screening mammogram for [...] HISTORICAL COLONOSCOPY UPPER GASTROINTESTINAL ENDOSCOPY 2012 PROCEDURE: [place] UPPER GI ENDOSCOPY PERFORMED; COMMENT: Dr Powers OTHER SURGICAL HISTORY 03/2017 PROCEDURE: [place] BRNCHSC INCL FLUOR GDNCE DX W/CELL WASHG SPX; COMMENT: Pseudomonas HYSTERECTOMY Medical History Medical History Date Comments Allergic rhinitis 11/05/2017 DX:Allergic rh initis Arthritis 12/13/2016 DX:Arthritis Asthma 06/06/2017 DX:Asthma Bronchiectasis ([facility] V24, [facility] V28) 05/13/2017 DX:Bronchiectasis (HCC) Gastroesophageal reflux disease [...] 2:30 PM EDT Office Visit Pulmonolgy - [address] [place] [phone] Sara Phillips MD [address] [place] [address] [address] [place] [address] Health Maintenance Due Date Last Done Comments [...] year. Mammo Location: [facility], [address] [place] [address], [address], . -------- FINAL REPORT -------- Dictated By: Kaitlin Horner Dictated Date: 12/23/2024 15:43 ET Assigned Physician: Kaitlin Horner Reviewed and Electronically Signed By: Kaitlin Horner Signed Date: 12/23/2024 15:44 ET Workstation ID: [id number] Transcribed By: Self Edit Transcribed Date: 12/23/2024 [...] year. Mammo Location: [facility], [address] [place] [address], [address], . -------- FINAL REPORT -------- Dictated By: Kaitlin Horner Dictated Date: 12/23/2024 15:43 ET Assigned Physician: Kaitlin Horner Reviewed and Electronically Signed By: Kaitlin Horner Signed Date: 12/23/2024 15:44 ET Workstation ID: [id number] Transcribed By: Self Edit Transcribed Date: 12/23/2024 15:43 ET us Self Referral Sppl IMG BI PROCEDURES Final Resul t from Last 3 Months Insurance MEDICARE [facility] Care Teams Specimen Collector Relationship Specialty Start Date End Date Kelly Ford MD [address] [place] [address] Dr Cassidy [address] [facility] [place] [address] PCP - General Internal Medicine 03/10/19
== END 2025-01-14 10:17 | disposition home or self-care (01) ==
LOC: HO.XRAY 10:16
PROVIDERS: PCP Internal Medicine; Visit Provider Internal Medicine Medical Oncology
DX: M25.511 Pain in right shoulder (principal); M25.811 Other specified joint disorders, right shoulder; I26.99 Other pulmonary embolism without acute cor pulmonale; Z51.81 Encounter for therapeutic drug level monitoring; Z79.01 Long term (current) use of anticoagulants
CPT/HCPCS: 73030; 96127; 99212

== ENCOUNTER 2025-01-14 10:16 | Outpatient (AMB) | payer MEDICARE, SELFPAY ==
--- NOTE | 2025-01-14 11:59 | MHC.OFFVISCO ---
Intake Intake Visit Reasons: Anticoagulation Allergies azithromycin Allergy (Unknown, Verified 01/14/25 14:37) fever levofloxacin Allergy (Unknown, Verified 01/14/25 14:37) LE pain and weakness nitrofurantoin Allergy (Unknown, Verified 01/14/25 14:37) fever,park celecoxib [From Celebrex] Adverse Reaction (Intermediate, Verified 01/14/25 14:37) tinnitus Medication List - Last Reconciled 01/14/25 by Kristel Sheikh RN acetaminophen 1,000 mg PO BID PRN albuterol sulfate 90 mcg/actuation 2 puffs inhalation Q6H PRN 90 days fluticasone propion-salmeterol 45-21 mcg/actuation (Advair HFA) inhalation levalbuterol HCl 0.63 mg PO Q4H PRN levalbuterol tartrate 45 mcg/actuation 2 puffs inhalation Q4-6H omeprazole 20 mg PO DAILY quetiapine (Seroquel) 25 mg PO BEDTIME 90 days simvastatin 40 mg PO BEDTIME sodium,potassium,mag sulfates 17.5-3.13-1.6 gram (Suprep Bowel Prep Kit) DILUTE; drink full amount early evening before AND next morning at least 2 hr before procedure; follow w 960 mL water PO sumatriptan succinate 100 mg PO DAILY PRN warfarin (Jantoven) 3 mg See Protocol PO DAILY 90 days Nursing Note INR received from [facility] INR: 3.0 in therapeutic range of 2-3 Pt scheduled to have and epidural injection for pain control on 01/20/25 by [facility] in [place]. She has a 5 day hold order by Pain Mgmt Dr Coy with lovenox bridging. Messaged PCP Dr Ford on 01/05/25 for lovenox order. Pt was mailed the bridging instructions and it was reviewed with her via phone. T/C from pt on 01/12/25 stating she did not receive the lovenox from Dr Ford. Dr Ford messaged to order for pt. He was concerned regarding the lovenox instructions and wanted the pt to be seen. Pt to ACS at this time and instructions reviewed with her. Pt asked appropriate questions and was able to give read back of instuctions with good understanding. No changes in health, diet, supplements or meds No signs and symptoms of bleeding or bruising or clotting Dose: will decrease today's dose to 2mg which will be the last dose of warfarin before the procedure. Will start lovenox on 01/16/25 bid with last dose being in the morning on the day before the procedure. She understands she will start both warfarin and lovenox when the pain mgmt MD tells her it is ok to do. When she restarts warfarin, it will be her usual dose. Retest: 01/26/25 Anti-Coag Initial Assessment Social Hx Patient Tobacco Use Status: Never used Tobacco Tobacco use type: Cigarette alcohol intake: former Coding Level of Care Code Est Patient Level 2 Diagnoses Current use of anticoagulant therapy Z79.01 Comment complicated instructions pre procedure Results AMB INR Fingerstick AMB INR Fingerstick 3.0 Last Edit by Kristel Sheikh RN on 01/14/25 10:34 acelis Assessment & Plan Assessment & Plan (1) Current use of anticoagulant therapy: Code(s): Z79.01 - long term care pharmacist (current) use of anticoagulants Category: Medical
--- OUTSIDE RECORDS SUMMARY | 2025-01-14 12:02 | XMS_ITS | Clinical Summary ---
Author Organization [facility] Address [address] [place] [address] Phone Care Team Providers Care Rim Turning Machine Operator Name Role Phone eKlly Ford MD Primary Care Provider Allergies Active Allergy Reactions Criticality Noted Date Comments Atorvastatin 01/06/2019 Azithromycin Other 11/18/2017 Fever Levofloxacin Other 11/18/2017 LE jJoint pain & weakness, cervical pain Mold 12/13/2016 Nitrofuran Derivative Other 01/17/2018 Fever, headache Other 12/13/2016 Dust Medications Advair HFA 45-21 mcg/actuation inhaler USE 2 INHALATIONS ORALLY TWICE DAILY 36 g 3 4 Active UNABLE TO FIND CPAP Historical (HISTORICAL CPAP) Active multivit-min/iro n/folic acid/K (ADULTS MULTIVITAMIN ORAL) Take 1 Tab by mouth daily. Active omega-3 acid ethyl esters (LOVAZA) 1 gram capsule Take 1 Cap by mouth daily. Active omeprazole (PriLOSEC) [address] capsule Take 20 mg by mouth daily. Active QUEtiapine (SEROquel) 25 mg tablet Take 25 mg by mouth at bedtime. Active rosuvastatin (CRESTOR) 10 mg tablet Take 10 mg by mouth daily. Active warfarin (COUMADIN) 1 mg tablet Take 1 mg by mouth See Admin Instructions. May cause heavy bleeding. Take at same time every day. Do not change dietary habits. Active Active Problems Problem Noted Date Diagnosed Date Snoring 04/17/2021 Overview (12/01/2024): 12/2020 Home Sleep Study did not reveal sleep apnea or nocturnal hypoxia. 02/2022 diagnostic polysomnogram- snoring but not sleep apnea;+ PLMD. Migraine 01/06/2019 Allergic rhinitis 11/05/2017 Asthma 06/06/2017 Bronchiectasis ([facility] V24, [facility] V28) 2016 Pulmonary nodule 12/21/2016 Arthritis 12/13/2016 Gastroesophageal reflux disease 12/13/2016 Osteoporosis 12/13/2016 Overview (12/01/2024): Actonel x 10 yrs, Stopped 2011 Hyperlipidemia 12/13/2016 Encounters Date Type Department Care Team Description 12/23/2024 2:21 PM EDT - 12/23/2024 11:59 PM EDT [facility] [address] [address] Encounter for screening mammogram for breast cancer Discharge Disposition: Home or Self Care from Last 3 Months Immunizations Name Administration Dates Next Due Influenza trivalent, 0.5mL ( Fluad) 65yo and older 07/04/2018,08/06/2017 Moderna SARS-CoV-2 COVID-19, mRNA, LNP-S, preservative free 09/17/2021,12/20/2020,11/22/2020 Pneumococcal conjugate 13 va lent (Prevnar 13, PCV13) 2mo and older 08/08/2017 Pneumococcal polysaccharide 23 valent (Pneumovax 23) 2yo and older 11/28/2016,10/22/2005 Surgical History Surgery Date Site/Laterality Comments TONSILLECTOMY [...] GDNCE DX W/CELL WASHG SPX; COMMENT: Pseudomonas HYSTERECTOMY Medical History Medical History Date Comments Allergic rhinitis 11/05/2017 DX:Allergic rh initis Arthritis 12/13/2016 DX:Arthritis Asthma 06/06/2017 DX:Asthma Bronchiectasis ([facility] V24, [facility] V28) 05/13/2017 DX:Bronchiectasis (HCC) Gastroesophageal reflux disease 12/13/2016 DX:Gastroesophageal reflux [...] = 0.6 oz pur e alcohol) Comments No Sex and Gender Information Value Date Recorded Sex Assigned at Female 12/22/2024 12:37 PM EDT Legal Sex Female 7:15 AM EST Gender Identity Female 12/22/2024 12:37 PM EDT Sexual Orientation Not on file Obstetrics History Para Term AB IAB SAB Ectopic Multiple Livin g Live Births 4 Last Filed Vital Signs Vital Sign Reading Time Taken Comments Blood Pressure 112/68 03/25/2024 2:45 PM EDT Pulse 66 03/25/2024 2:45 PM EDT Temperature - - Respiratory Rate - - Oxygen Saturation - - Inhaled Oxygen Concentration - - Weight 50.8 kg (112 lb) 12/23/2024 2:32 PM EDT Height 160 cm (5' 3 ) 12/23/2024 2:32 PM EDT Body Mass Index 19.84 12/23/2024 2:32 PM EDT Plan of Treatment Upcoming Encounters Date Type Department Care Team (Late st Contact Info) Description 03/24/2025 2:30 PM EDT Office Visit Pulmonolgy - [address] [place] [id number] Sara Phillips MD [address] [place] [address] [address] [place] [address] Health Maintenance Due Date Last Done Comments RSV Immunization Adult Patients (1 - 1-dose 75+ series) 2018 Cholesterol Screening (Lipid Panel) 09/15/2022 Depression Screening 09/15/2022 Falls Risk Assessment 09/15/2022 Medicare Annual Wellness Visit 09/15/2022 Osteoporosis Screening (Bone Density Screening) 09/15/2022 Social Influencers of Health Screening 09/15/2022 COVID-19 Vaccine ( season) 2024 09/17/2021, 12/20/2020, 11/22/2020 DTaP,Tdap,and Td Vaccines (2 - Td or Tdap) 05/09/2030 05/09/2020 Pneumococcal Vaccine: 50+ Years Completed 08/08/2017, 11/28/2016, 10/22/2005 Zoster Vaccines Completed 11/30/2019, 08/04/2019 Influenza Vaccine Completed 07/31/2024, , 08/01/2022, Additional history exists HIB Vaccines Aged Out No longer eligi [...] age to complete this topic Meningococcal B Vaccine Aged Out No l onger eligible based on patient's age to complete this topic RSV Immunization Patients Under 20 months Aged Out No longer eligible based on patient's age to complete this topic Varicella Vaccines Aged Out No longer eligible based on patient's age to complete this topic Procedures Procedure Name Priority Date/Time Associated Diagnosis Comments MG MAMMO DIGITAL SCREENING W JULIÁN BILAT Routine 12/23/2024 2:59 PM EDT Encounter for screening mammogram for breast cancer from Last 3 Months Results * MG Mammo Digital Screening w Julián bilat (12/23/2024 2:59 PM EDT) Anatomical Region Laterality Modality Breast Bilateral Mammography 12/23/2024 3:43 PM EDT Impressions 12/23/2024 3:44 PM EDT No evidence of breast malignancy. BI-RADS CATEGORY: 1 - NEGATIVE RECOMMENDATION: Screening bilateral mammogram is recommended in 1 year. Mammo Location: [facility], [address] [place] [address], [id number], . -------- FINAL REPORT -------- Dictated By: Kaitlin Horner Dictated Date: 12/23/2024 15:43 ET Assigned Physician: Kaitlin Horner Reviewed and Electronically Signed By: Kaitlin Horner Signed Date: 12/23/2024 15:44 ET Workstation ID: [id number] Transcribed By: Self Edit Transcribed Date: 12/23/2024 15:43 ET Narrative 12/23/2024 3:44 PM EDT CLINICAL: 79 years old, Female, routine annual exam. COMPARISON: 11/20/2023, 12/24/2021, 09/06/2021 and 09/16/2019 ?? TECHNIQUE: Bilateral MLO and CC views were obtained digitally with 3-D mammogram (digital breast tomosynthesis). Computer-aided detection was utilized in evaluation of this exam (CAD). FINDINGS: There is no evidence of suspicious mass or architectural distortion. ??No worrisome calcifications are evident. ??There has been no significant change from prior exam(s). ?? BREAST DENSITY: B - There are scattered areas of fibroglandular density. Procedure Note Kaitlin Horner MD - 12/23/2024 CLINICAL: 79 years old, Female, routine annual exam. COMPARISON: 11/20/2023, 12/24/2021, 09/06/2021 and 09/16/2019 TECHNIQUE: Bilateral MLO and CC views were obtained digitally with 3-Dmammogram (digital breast tomosynthesis). Computer-aided detection wasutilized in evaluation of this exam (CAD). FINDINGS: There is no evidence of suspicious mass or architectural distortion. Noworrisome calcifications are evident. There has been no significantchange from prior exam(s). BREAST DENSITY: B - There are scattered areas of fibroglandular density. IMPRESSION: No evidence of breast malignancy. BI-RADS CATEGORY: 1 - NEGATIVE RECOMMENDATION: Screening bilateral mammogram is recommended in 1 year. Mammo Location: [facility], [address] [place] [address], [id number], . -------- FINAL REPORT -------- Dictated By: Kaitlin Horner Dictated Date: 12/23/2024 15:43 ET Assigned Physician: Kaitlin Horner Reviewed and Electronically Signed By: Kaitlin Horner Signed Date: 12/23/2024 15:44 ET Workstation ID: [id number] Transcribed By: Self Edit Transcribed Date: 12/23/2024 15:43 ET us Self Referral Sppl IMG BI PROCEDURES Final Resul t from Last 3 Months Insurance [facility]IC[facility] Care Teams Rim Turning Machine Operator Relationship Specialty Start Date End Date Kelly Ford MD [address] [place] [address] Dr [address] [facility] [place] [id number] PCP - General Internal Medicine 03/10/19
== END 2025-01-14 14:39 | disposition home or self-care (01) ==
LOC: HO.ACS 10:16
PROVIDERS: PCP Internal Medicine; Visit Provider Internal Medicine Medical Oncology
DX: Z79.01 Long term (current) use of anticoagulants (principal)

== ENCOUNTER 2025-01-14 14:32 | Outpatient (AMB) | payer MEDICARE, SELFPAY ==
--- NOTE | 2025-01-14 14:35 | A.OFFPC_ITS ---
Vital Signs 01/14/25 14:36 Height 5 ft 3 in Weight 114 lb 6 oz BMI 20.3 BP 110/64 Blood Pressure Location Lt brachial Position Sitting Pulse 71 Pulse Source Pulse Oximeter Pulse Oximetry (%) 98 Oxygen Delivery Method Room Air Intake Visit Reasons: Lump in Arm Clothing Designer Required: No Accompanied by: Self / Same As Patient Allergies azithromycin Allergy (Unknown, Verified 01/14/25 14:37) fever levofloxacin Allergy (Unknown, Verified 01/14/25 14:37) LE pain and weakness nitrofurantoin Allergy (Unknown, Verified 01/14/25 14:37) fever,park celecoxib [From Celebrex] Adverse Reaction (Intermediate, Verified 01/14/25 14:37) tinnitus Medication List - Last Reconciled 01/14/25 by Ximena Richardson PA-C acetaminophen 1,000 mg PO BID PRN albuterol sulfate 90 mcg/actuation 2 puffs inhalation Q6H PRN 90 days enoxaparin (Lovenox) 50 mg (0.5 mL) subcut Q12H fluticasone propion-salmeterol 45-21 mcg/actuation (Advair HFA) inhalation levalbuterol HCl 0.63 mg PO Q4H PRN levalbuterol tartrate 45 mcg/actuation 2 puffs inhalation Q4-6H omeprazole 20 mg PO DAILY quetiapine (Seroquel) 25 mg PO BEDTIME 90 days simvastatin 40 mg PO BEDTIME sumatriptan succinate 100 mg PO DAILY PRN warfarin (Jantoven) 3 mg See Protocol PO DAILY 90 days Tobacco use date assessed: 01/14/25 Fall risk assessment: No Falls in past year Last assessed Fall Risk: 01/14/25 Dental Screening Dental Screen Date: 01/14/25 Did you have a dental visit in the last 12 months?: Yes Did you have a dental problem in the last 6 months where you did not have access to dental care?: No Was dental information given to patient?: Patient has dentist HPI Lump in Arm HPI Details 79-year-old female with past medical his tory of osteoporosis, hypercholesterolemia, COPD, migraine headache, generalized anxiety disorder and depression last seen 11/2024 coming in for acute problem. Presenting with chronic pain and a lump in the right shoulder. She reports persistent right shoulder pain lasting for six months, severe enough to disrupt sleep. She observed a lump in the shoulder area without noticeable size increase; no associated injury noted by the patient. Pain variations occur with arm movements; patient denies notable pain on arm elevation. [facility] Medical History Cough History of Pseudomonas pneumonia History of pulmonary embolism COPD (chronic obstructive pulmonary disease) Thyroid nodule Migraine Hypercholesterolemia Obstructive sleep apnea Bronchiectasis Surgical History History of cataract surgery History of bronchoscopy History of colonoscopy Family History Father No problems noted. Mother No problems noted. Sister No problems noted. Son No problems noted. Family/Other Heart disease Social History Housing: House Alcohol intake: former Patient Tobacco Use Status: Never used Tobacco Tobacco use type: Cigarette e-Cigarette/Vaping Use: Never Used Second Hand Smoke Exposure: Yes service: No Current occupational status: retired Cognitive needs: No Hearing needs: No Vision needs: Yes Questionnaire PHQ-9 Over the last 2 weeks, how often have you been bothered by any of the following problems? 1. Little interest or pleasure in doing things: more than half the days 2. Feeling down, depressed, or hopeless: more than half the days 3. Trouble falling or staying asleep, or sleeping too much: not at all 4. Feeling tired or having little energy: more than half the days 5. Poor appetite or overeating: not at all 6. Feeling bad about yourself - or that you are a failure or have let yourself or your family down: several days 7. Trouble concentrating on things, such as reading the newspaper or watching television: not at all 8. Moving or speaking so slowly that other people could have noticed. Or the opposite - being so fidgety or restless that you have been moving around a lot more than usual: not at all 9. Thoughts that you would be better off or of hurting yourself in some way: not at all Total score: 7 Depression Screening Interpretation: Positive Depression Screening Follow-up: Existing condition and In treatment Depression Screening Done: Yes 74321 - PHQ-9 Billing: Yes Source: Developed by Drs. Vincenzo Singh, Indira Dhaliwal, Pedro Luis Zhang and colleagues, with an educational lux from [employer]. Thrive Questionnaire Date Thrive assessed: 01/14/25 I am a: Patient What is your living situation today?: I have a steady place to live Within the past 12 months, did the food you bought not last and you didn't have the money to get more?: Never true Within the past 12 months, did you worry whether your food would run out before you got money to buy more?: Never true Do you have trouble paying for medicines?: No Do you have trouble getting transportation to medical appointments?: No Do you have trouble paying your heating and electricity bill?: No Do you have trouble taking care of your child, family member or friend?: No Do you have trouble with day-to-day activities such as bathing, preparing meals, shopping, managing finances, etc.?: No Are you currently unemployed and looking for a job?: No Are you interested in more education?: No Currently or been in a relationship where the following occur: No concerns reported THRIVE Score: 0 AUDIT C Alcohol Use Questionnaire (AUDIT-C) 1. How often do you have a drink containing alcohol?: Never 2. How many drinks containing alcohol do you have on a typical day when you are drinking?: 1 or 2 (none) 3. How often do you have six or more drinks on one occasion?: Never Total Score: 0 Score Reviewed/Action Taken: Yes LISA-7 AMB Questionnaire LISA-7 Date LISA - 7 assessed: 01/14/25 Feeling nervous, anxious, or on edge: 0 = Not at all Not being able to stop or control worryin = Not at all Worrying too much about different things: 0 = Not at all Trouble relaxin = Not at all Being so restless that it is hard to sit still: 0 = Not at all Becoming easily annoyed or irritable: 0 = Not at all Feeling afraid as if something awful might happen: 0 = Not at all Total LISA-7 score (0-4 normal; 5-9 mild; 10-14 moderate; 15-21 severe): 0 Source: Developed by Drs. Vincenzo Singh, Indira Dhaliwal, Pedro Luis Zhang and colleagues, with an educational lux from [employer]. LISA-7 Assessment Billing LISA-7 Assessment Tool: LISA-7 Assessment 63355 Review of Systems Const Denies body aches, Denies chills and Denies fever(s) Eyes Reports no additional complaints Card Denies chest pain, Denies lightheadedness and Denies dyspnea Resp Denies dyspnea Reports no additional complaints Musc Details: right shoulder pain and palpable mass Denies abnormal gait Skin/Breast Reports system reviewed and no additional complaints, except as documented Neuro Denies abnormal gait Psych Reports no additional complaints Physical exam (Primary Care) Vital Signs: Last Vital Signs Pulse 71 01/14/25 14:36 BP 110/64 01/14/25 14:36 Pulse Ox 98 01/14/25 14:36 Oxygen Delivery Method Room Air 01/14/25 14:36 BMI result Body Mass Index 20.3 Tobacco/Smoking Status: Tobacco use Status Tobacco use date assessed 01/14/25 01/14/25 14:38 Patient Tobacco Use Status Never used Tobacco 01/14/25 14:38 Tobacco use type Cigarette 01/14/25 14:38 e-Cigarette/Vaping Use Never Used 01/14/25 14:38 PHQ-9: PHQ-9 Score PHQ-9: Total score 7 01/14/25 14:43 Depression Screening Interpretation: Positive Depression Screening Follow-up: Existing condition and In treatment Thrive Assessment: Date of Thrive Assessment Date Thrive assessed 01/14/25 01/14/25 14:38 Currently or been in a relationship where the following occur: No concerns reported Const General: cooperative, healthy appearing, comfortable and no acute distress Orientation/consciousness: patient oriented x3 HENMT Head: Yes normocephalic Ears: hearing grossly normal bilaterally General nose exam: Normal external nose present Eyes General: appearance normal, both eyes and all related structures Conjunctivae: conjunctivae normal Neck Neck: Yes full ROM and Yes no lymphadenopathy Resp Effort & Inspection: normal respiratory effort Auscultation: clear to auscultation bilaterally, no crackles, no rales, no rhonchi and no wheezes Cardio Rate: regular rate Rhythm: regular rhythm Skin General skin exam: no rashes or lesions noted Neuro General: patient oriented x3 Gait exam (Neuro): Normal gait present Extrem Other: tenderness to palpation over anterior aspect of right shoulder. No soft tissue mass. There is bony prominence on the top of the shoulder with tenderness to palpation without overlying skin changes. Pain with extension of the right shoulder General: Yes normal to inspection, Yes full ROM and No edema Psych Affect: normal affect Attitude: cooperative Insight: Good insight present (Psych) Judgement: Good judgement present (Psych) Results AMB INR Fingerstick AMB INR Fingerstick 3.0 Last Edit by Kristel Sheikh RN on 01/14/25 10:34 acelis Coding Level of Care Code Est Pt Level 3 (99133) Diagnoses Right shoulder pain M25.511 Mass of joint of right shoulder M25.811 Additional Codes LISA-7 Assessment Billing - LISA-7 Assessment Tool: LISA-7 Assessment 28259 ([id number]) PHQ-9 - 76709 - PHQ-9 Billing: Yes ([id number]) Assessment & Plan Assessment & Plan (1) Right shoulder pain: Code(s): M25.511 - Pain in right shoulder Category: Medical Plan: Ordered for right shoulder x-ray for further evaluation. Advised patient to use Tylenol as needed for pain or topical lidocaine. Discussed possible referral to Orthopedics pending x-ray images. Offered physical therapy which was declined today (2) Mass of joint of right shoulder: Code(s): M25.811 - Other specified joint disorders, right shoulder Category: Medical Plan: Patient having perceived mass of right shoulder on exam there is a bony prominence consistent on both sides. Low suspicion for mass however planned to obtain x-ray for further evaluation. Advised to continue to monitor at this time and reach out to the office if mass appears to be growing or becomes more tender. Plan To address the patient's right shoulder pain and lump, an X-ray of the shoulder will be performed to evaluate any present abnormalities such as bone spurs or signs of osteoarthritis. I have discussed the possibility of inflammation due to arthritis and pursued further diagnosis through imaging. The patient has opted to defer immediate start of physical therapy. This note was constructed using voice recognition software. While every effort has been made to ensure accuracy and patrol deputy sheriff, still areas may have been included sometimes these areas may affect the content or meeting of the given sy mptoms. Total time spent caring for the patient today was 20 minutes. This includes time spent before the visit reviewing the chart, time spent during the visit, and time spent after the visit and documentation. Patient was informed and verbally consented to the use of an ambient scribe for clinic note documentation during this visit. Orders: Orders XR shoulder RT min 2V Today M25.511 - Pain in right shoulder, M25.811 - Other specified joint disorders, right shoulder
[2025-01-14 14:36] VITALS: BP 110/64; PULSE 71; O2SAT 98; BMI 20.3
--- OUTSIDE RECORDS SUMMARY | 2025-01-14 17:14 | XMS_ITS | Clinical Summary ---
Author Organization 175 [facility] Address [address] [place] [address] Phone Care Team Providers Care First Line Production Supervisor Name Role Phone Kelly Ford MD Primary Care Provider [phone] Allergies Active Allergy Reactions Criticality Noted Date [...] 01/06/2019 Allergic rhinitis 11/05/2017 Asthma 06/06/2017 Bronchiectasis ([facility] V24, [facility] V28) 2016 Pulmonary nodule 12/21/2016 Arthritis 12/13/2016 Gastroesophageal reflux disease 12/13/2016 Osteoporosis 12/13/2016 Overview (12/01/2024): Actonel x 10 yrs, Stopped 2011 Hyperlipidemia 12/13/2016 Encounters Date Type Department Care Team Description 12/23/2024 2:21 PM EDT - 12/23/2024 11:59 PM EDT [facility] [address] [address] Encounter for screening mammogram for [...] HISTORICAL COLONOSCOPY UPPER GASTROINTESTINAL ENDOSCOPY 2012 PROCEDURE: [place] UPPER GI ENDOSCOPY PERFORMED; COMMENT: Dr Powers OTHER SURGICAL HISTORY 03/2017 PROCEDURE: [place] BRNCHSC INCL FLUOR GDNCE DX W/CELL WASHG SPX; COMMENT: Pseudomonas HYSTERECTOMY Medical History Medical History Date Comments Allergic rhinitis 11/05/2017 DX:Allergic rh initis Arthritis 12/13/2016 DX:Arthritis Asthma 06/06/2017 DX:Asthma Bronchiectasis ([facility] V24, [facility] V28) 05/13/2017 DX:Bronchiectasis (HCC) Gastroesophageal reflux disease [...] 2:30 PM EDT Office Visit Pulmonolgy - [address] [place] [phone] Sara Phillips MD [address] [place] [address] [address] [place] [address] Health Maintenance Due Date Last Done Comments [...] year. Mammo Location: [facility], [address] [place] [address], [address], . -------- FINAL REPORT -------- Dictated By: Kaitlin Horner Dictated Date: 12/23/2024 15:43 ET Assigned Physician: Kaitlin Horner Reviewed and Electronically Signed By: Kaitlin Horner Signed Date: 12/23/2024 15:44 ET Workstation ID: [id number] Transcribed By: Self Edit Transcribed Date: 12/23/2024 [...] year. Mammo Location: [facility], [address] [place] [address], [address], . -------- FINAL REPORT -------- Dictated By: Kaitlin Horner Dictated Date: 12/23/2024 15:43 ET Assigned Physician: Kaitlin Horner Reviewed and Electronically Signed By: Kaitlin Horner Signed Date: 12/23/2024 15:44 ET Workstation ID: [id number] Transcribed By: Self Edit Transcribed Date: 12/23/2024 15:43 ET us Self Referral Sppl IMG BI PROCEDURES Final Resul t from Last 3 Months Insurance MEDICARE [facility] Care Teams First Line Production Supervisor Relationship Specialty Start Date End Date Kelly Ford MD [address] [place] [address] Dr [address] [facility] [place] [address] PCP - General Internal Medicine 03/10/19
== END 2025-01-14 15:08 | disposition home or self-care (01) ==
LOC: HO.HMCH 14:33
PROVIDERS: PCP Internal Medicine
DX: M25.511 Pain in right shoulder (principal); M25.811 Other specified joint disorders, right shoulder

== ENCOUNTER → 2025-01-14 15:29 | Outpatient (BNV) | payer MEDICARE, SELFPAY | PROVIDERS: PCP Internal Medicine; Visit Provider Radiology Vascular & Interventional Radiology | DX: M25.511 Pain in right shoulder (principal) | CPT/HCPCS: 73030 ==

== ENCOUNTER → 2025-01-19 12:26 | Outpatient (BNVA) | payer MEDICARE, SELFPAY | PROVIDERS: PCP Internal Medicine; Visit Provider Internal Medicine Medical Oncology | DX: Z13.89 Encounter for screening for other disorder (principal) ==

== ENCOUNTER 2025-01-26 09:50 | Outpatient (REF) | payer MEDICARE, SELFPAY ==
[2025-01-26 11:01] LABS: MANUAL DIFF FLAG NO
[2025-01-26 11:20] LABS: Basophils Percent Auto 0.5 % (0-2); Eosinophils Absolute Auto 0.1 X10*3/uL (0.0-0.4); Eosinophils Percent Auto 1.6 % (0-4); Hematocrit 39.9 % (37.0-47.0); Imm Gran Abs Auto 0.09 X10*3/uL (0.00-0.03); Imm Gran Pct Auto 1.1 % (0.0-0.4); Immature Retic Fraction 17.5 % (3.0-15.9); Lymphocytes Absolute Auto 2.2 X10*3/uL (1.2-4.9); Mean Corpuscular HGB Conc 32.6 g/dl (31.0-35.0); Mean Corpuscular Volume 92.1 fL (80.0-98.0); Mean Platelet Volume 10.5 fL (9.4-12.3); Monocytes Absolute Auto 0.9 X10*3/uL (0.1-1.2); Monocytes Percent Auto 11.5 % (2-11); Neutrophils Absolute Auto 4.7 x10*3/uL (2.0-8.3); Neutrophils Percent Auto 58.3 % (45-73); Platelet Count 342 X10*3/uL (160-400); Red Blood Count 4.33 X10*6/uL (4.20-5.50); Red Cell Distribution Width 14.2 % (11.0-16.0); Retic HGB Equivalent 35.8 pg (30.0-35.0); Reticulocyte Percent 1.6 % (0.5-1.8); Reticulocytes Absolute 0.068 X10*6/uL (0.026-0.095); White Blood Count 8.1 X10*3/uL (4.8-10.8)
[2025-01-26 12:22] LABS: Alanine Aminotransferase 73 U/L (0-31); Albumin Level 4.3 g/dL (3.5-5.0); Alkaline Phosphatase 71 U/L (39-117); Anion Gap 12 (12-20); Aspartate Amino Transferase 25 U/L (5-31); Bilirubin Total 0.3 mg/dL (0.0-1.0); Blood Urea Nitrogen 21 mg/dL (9-16); Calcium 9.7 mg/dL (8.4-10.2); Carbon Dioxide 26 mmol/L (22-29); Chloride 107 mmol/L (96-108); Cholesterol 223 mg/dL (<200); Estimated Glomerular Filt Rate > 60; Ferritin 79 ng/mL (10-250); Folate 15.4 ng/mL (> or = 4.0); Free T4 (Free Thyroxine) 0.86 ng/dL (0.71-1.85); Glucose Random 105 mg/dL (60-115); HDL Cholesterol 81 mg/dL (>40); Iron 107 mcg/dL (30-160); LDL Cholesterol Calculated 130 mg/dL (<100); Percent Iron Saturation 39 % (15-50); Potassium 4.4 mmol/L (3.3-5.1); Sodium 141 mmol/L (135-145); Thyroid Stimulating Hormone 1.71 uIU/mL (0.32-4.0); Total Iron Binding Capacity 273 mcg/dL (228-428); Total Protein 7.2 g/dL (6.5-8.0); Triglycerides 63 mg/dL (<150); Unsaturated Iron Binding 166 ug/dL; Vitamin B12 743 pg/mL (200-900); Vitamin D 25-OH Total 55.6 ng/mL (>30)
--- OUTSIDE RECORDS SUMMARY | 2025-01-26 12:44 | XMS_ITS | Clinical Summary ---
Author Organization 175 [facility] Address [address] [place] [address] Phone Care Team Providers Care Crisis Counselor Name Role Phone Kelly Ford MD Primary Care Provider [phone] Allergies Active Allergy Reactions Criticality Noted Date [...] 11/05/2017 Asthma 06/06/2017 Bronchiectasis ([facility] V24, [facility] V28) 2016 Pulmonary nodule 12/21/2016 Arthritis 12/13/2016 Gastroesophageal reflux disease 12/13/2016 Osteoporosis 12/13/2016 Overview (12/01/2024): Actonel x 10 yrs, Stopped 2011 Hyperlipidemia 12/13/2016 Encounters Date Type Department Care Team Description 12/23/2024 2:21 PM EDT - 12/23/2024 11:59 PM EDT [facility] [address] [phone] Encounter for screening mammogram for [...] HISTORICAL COLONOSCOPY UPPER GASTROINTESTINAL ENDOSCOPY 2012 PROCEDURE: [place] UPPER GI ENDOSCOPY PERFORMED; COMMENT: Dr Powers OTHER SURGICAL HISTORY 03/2017 PROCEDURE: [place] BRNCHSC INCL FLUOR GDNCE DX W/CELL WASHG SPX; COMMENT: Pseudomonas HYSTERECTOMY Medical History Medical History Date Comments Allergic rhinitis 11/05/2017 DX:Allergic rh initis Arthritis 12/13/2016 DX:Arthritis Asthma 06/06/2017 DX:Asthma Bronchiectasis ([facility] V24, [facility] V28) 05/13/2017 DX:Bronchiectasis (HCC) Gastroesophageal [...] 2:30 PM EDT Office Visit Pulmonolgy - [address] [place] [phone] Sara Phillips MD [address] [place] [address] [address] [place] [address] Health Maintenance Due Date Last Done Comments [...] year. Mammo Location: [facility], [address] [place] [address], [address], . -------- FINAL REPORT -------- Dictated By: Kaitlin Horner Dictated Date: 12/23/2024 15:43 ET Assigned Physician: Kaitlin Horner Reviewed and Electronically Signed By: Kaitlin Horner Signed Date: 12/23/2024 15:44 ET Workstation ID: [id number] Transcribed By: Self Edit Transcribed Date: 12/23/2024 [...] year. Mammo Location: [facility], [address] [place] [address], [address], . -------- FINAL REPORT -------- Dictated By: Kaitlin Horner Dictated Date: 12/23/2024 15:43 ET Assigned Physician: Kaitlin Horner Reviewed and Electronically Signed By: Kaitlin Horner Signed Date: 12/23/2024 15:44 ET Workstation ID: [id number] Transcribed By: Self Edit Transcribed Date: 12/23/2024 15:43 ET us Self Referral Sppl IMG BI PROCEDURES Final Resul t from Last 3 Months Insurance MEDICARE [facility] Care Teams Crisis Counselor Relationship Specialty Start Date End Date Kelly Ford MD [address] [place] [address] Dr [address] [facility] [place] [address] PCP - General Internal Medicine 03/10/19
== END 2025-01-26 09:51 | disposition home or self-care (01) ==
LOC: HO.LAB 09:50
PROVIDERS: PCP Internal Medicine; Visit Provider Internal Medicine
DX: E53.8 Deficiency of other specified B group vitamins (principal); E78.00 Pure hypercholesterolemia, unspecified; M51.360 Other intervertebral disc degeneration, lumbar region with discogenic back pain only; Z79.01 Long term (current) use of anticoagulants
CPT/HCPCS: 36415; 80053; 80061; 82306; 82607; 82728; 82746; 83540; 84439; 84443; 85025; 85045

== ENCOUNTER → 2025-01-27 10:03 | Outpatient (BNVA) | payer MEDICARE, SELFPAY | PROVIDERS: PCP Internal Medicine; Visit Provider Internal Medicine Medical Oncology | DX: Z13.89 Encounter for screening for other disorder (principal) ==

== ENCOUNTER 2025-02-23 07:31 | Day surgery (SDC) | payer MEDICARE, SELFPAY ==
--- OUTSIDE RECORDS SUMMARY | 2025-02-12 12:42 | XMS_ITS | Clinical Summary ---
Author Organization 175 [facility] Address [address] [place] [address] Phone Care Team Providers Care Sock Examiner Name Role Phone Kelly Ford MD Primary Care Provider [phone] Allergies Active Allergy Reactions Criticality Noted Date [...] 01/06/2019 Allergic rhinitis 11/05/2017 Asthma 06/06/2017 Bronchiectasis ([facility] V24, [facility] V28) 2016 Pulmonary nodule 12/21/2016 Arthritis 12/13/2016 Gastroesophageal reflux disease 12/13/2016 Osteoporosis 12/13/2016 Overview (12/01/2024): Actonel x 10 yrs, Stopped 2011 Hyperlipidemia 12/13/2016 Encounters Date Type Department Care Team Description 12/23/2024 2:21 PM EDT - 12/23/2024 11:59 PM EDT [facility] [address] [phone] Encounter for screening mammogram for [...] HISTORICAL COLONOSCOPY UPPER GASTROINTESTINAL ENDOSCOPY 2012 PROCEDURE: [place] UPPER GI ENDOSCOPY PERFORMED; COMMENT: Dr Powers OTHER SURGICAL HISTORY 03/2017 PROCEDURE: [place] BRNCHSC INCL FLUOR GDNCE DX W/CELL WASHG SPX; COMMENT: Pseudomonas HYSTERECTOMY Medical History Medical History Date Comments Allergic rhinitis 11/05/2017 DX:Allergic rh initis Arthritis 12/13/2016 DX:Arthritis Asthma 06/06/2017 DX:Asthma Bronchiectasis ([facility] V24, [facility] V28) 05/13/2017 DX:Bronchiectasis (HCC) Gastroesophageal [...] 2:30 PM EDT Office Visit Pulmonolgy - [address] [place] [phone] Sara Phillips MD [address] [place] [address] [address] [place] [address] Health Maintenance Due Date Last Done Comments [...] year. Mammo Location: [facility], [address] [place] [address], [address], . -------- FINAL REPORT -------- Dictated By: Kaitlin Horner Dictated Date: 12/23/2024 15:43 ET Assigned Physician: Kaitlin Horner Reviewed and Electronically Signed By: Kaitlin Horner Signed Date: 12/23/2024 15:44 ET Workstation ID: [id number] Transcribed By: Self Edit Transcribed Date: 12/23/2024 [...] year. Mammo Location: [facility], [address] [place] [address], [address], . -------- FINAL REPORT -------- Dictated By: Kaitlin Horner Dictated Date: 12/23/2024 15:43 ET Assigned Physician: Kaitlin Horner Reviewed and Electronically Signed By: Kaitlin Horner Signed Date: 12/23/2024 15:44 ET Workstation ID: [id number] Transcribed By: Self Edit Transcribed Date: 12/23/2024 15:43 ET us Self Referral Sppl IMG BI PROCEDURES Final Resul t from Last 3 Months Insurance MEDICARE [facility] Care Teams Sock Examiner Relationship Specialty Start Date End Date Kelly Ford MD [address] [place] [address] Dr [address] [facility] [place] [address] PCP - General Internal Medicine 03/10/19
[2025-02-19 11:44] VITALS: BMI 20.4
--- NOTE | 2025-02-22 11:39 | P.CONAN_ITS ---
Documented by User: Jalyn Castillo NP 02/22/25 11:43 HPI - Anesthesia Eval Consult details Narrative: 79yo F for Colonoscopy with possible Polypectomy Eliquis for PE PMFSH Active Problems Active Problems: All Active Problems LFT elevation (Acute) Mass of joint of right shoulder (Acute) Right shoulder pain (Acute) Epistaxis (Acute) Palpitation (Acute) Mild depression (Acute) Medicare annual wellness visit, subsequent (Acute) Colon cancer screening (Acute) Lumbar degenerative disc disease (Acute) Osteoarthritis of lumbar spine (Acute) Vitamin B 12 deficiency (Acute) Paronychia of finger of right hand (Acute) Paronychia of finger (Acute) Low back pain (Acute) Dry cough (Acute) COVID-19 virus infection (Acute) Generalized anxiety disorder (Acute) Cough (Acute) Moderate persistent asthma (Acute) History of pulmonary embolism (Acute) Migraine (Acute) Recurrent urinary tract infection (Acute) COPD (chronic obstructive pulmonary disease) (Acute) Hypercholesterolemia (Acute) Osteoporosis (Acute) Phlebitis and thrombophlebitis of unspecified femoral vein (Acute) Current use of anticoagulant therapy (Acute) Past Medical History Medical History Cough History of Pseudomonas pneumonia History of pulmonary embolism COPD (chronic obstructive pulmonary disease) Thyroid nodule Migraine Hypercholesterolemia Obstructive sleep apnea Bronchiectasis Family History Family History Father No problems noted. Mother No problems noted. Sister No problems noted. Son No problems noted. Family/Other Heart disease Surgical History Surgical History History of cataract surgery History of bronchoscopy History of colonoscopy Social History Social History Housing: House Alcohol intake: former Patient Tobacco Use Status: Never used Tobacco Tobacco use type: Cigarette e-Cigarette/Vaping Use: Never Used Second Hand Smoke Exposure: Yes Advance Directives: No Advance Directives Information Provided: Yes service: No Current occupational status: retired Cognitive needs: No Hearing needs: No Vision needs: Yes Meds Allergies Allergy/AdvReac Type Severity Reaction Status Date / Time azithromycin Allergy Unknown fever Verified 02/23/25 08:02 levofloxacin Allergy Unknown LE pain Verified 02/23/25 08:02 and weakness nitrofurantoin Allergy Unknown fever,park Verified 02/23/25 08:02 celecoxib [From Celebrex] AdvReac Intermediate tinnitus Verified 02/23/25 08:02 Home Medications ?Medication ?Instructions ?Recorded ?Confirmed ?Last Taken ?Type levalbuterol HCl 0.63 mg/3 mL 0.63 mg PO Q4H PRN wheezing 05/15/21 02/23/25 Unknown History solution for nebulization levalbuterol tartrate 45 2 puff inhalation Q4-6H 03/29/22 02/23/25 Unknown History mcg/actuation aerosol inhaler fluticasone propionate 45 inhalation 04/14/24 01/26/25 Unknown History mcg-salmeterol 21 mcg/actuation HFA inhaler (Advair HFA) acetaminophen 500 mg tablet 1,000 mg PO BID PRN Pain, Mild 10/20/24 01/26/25 Unknown History Exam Height,Weight and Vital Signs: Height 5 ft 3 in Weight 52.163 kg Pertinent Lab Results Pertinent Lab Results: Laboratory Tests 01/26/25 10:59 WBC 8.1 Hgb 13.0 Hct 39.9 Plt Count 342 Sodium 141 Potassium 4.4 Chloride 107 Carbon Dioxide 26 BUN 21 H Creatinine 0.76 Narrative Narrative: Holter 11/2024 1. Patient was monitored for total period of 3 days 2. Baseline was normal sinus rhythm with average heart of 72 beats per minute next 3. Frequent PVCs noted with total burden of 3.1% mostly isolated 4. No significant pauses noted 5. Patient marked the counter 36 times with symptoms of skipped heartbeat correlating with PVCs Assessment and Plan Assessment Anesthesia Assessment: Chart Reviewed Documented by User: Madelyn Pena MD 02/23/25 08:10 PMFSH Past Medical History Medical History Cough History of Pseudomonas pneumonia History of pulmonary embolism COPD (chronic obstructive pulmonary disease) Thyroid nodule Migraine Hypercholesterolemia Obstructive sleep apnea Bronchiectasis Family History Family History Father No problems noted. Mother No problems noted. Sister No problems noted. Son No problems noted. Family/Other Heart disease Family history of problems with anesthesia: No Surgical History Surgical History History of cataract surgery History of bronchoscopy History of colonoscopy History of Problems with Anesthesia: No Social History Social History Housing: House Alcohol intake: former Patient Tobacco Use Status: Never used Tobacco Tobacco use type: Cigarette e-Cigarette/Vaping Use: Never Used Second Hand Smoke Exposure: Yes Advance Directives: No Advance Directives Information Provided: Yes service: No Current occupational status: retired Cognitive needs: No Hearing needs: No Vision needs: Yes Meds Allergies Allergy/AdvReac Type Severity Reaction Status Date / Time azithromycin Allergy Unknown fever Verified 02/23/25 08:02 levofloxacin Allergy Unknown LE pain Verified 02/23/25 08:02 and weakness nitrofurantoin Allergy Unknown fever,park Verified 02/23/25 08:02 celecoxib [From Celebrex] AdvReac Intermediate tinnitus Verified 02/23/25 08:02 Home Medications ?Medication ?Instructions ?Recorded ?Confirmed ?Last Taken ?Type levalbuterol HCl 0.63 mg/3 mL 0.63 mg PO Q4H PRN wheezing 05/15/21 02/23/25 Unknown History solution for nebulization levalbuterol tartrate 45 2 puff inhalation Q4-6H 03/29/22 02/23/25 Unknown History mcg/actuation aerosol inhaler fluticasone propionate 45 inhalation 04/14/24 01/26/25 Unknown History mcg-salmeterol 21 mcg/actuation HFA inhaler (Advair HFA) acetaminophen 500 mg tablet 1,000 mg PO BID PRN Pain, Mild 10/20/24 01/26/25 Unknown History Exam Airway Mallampati Class: II TM Dist: >3cm Neck ROM: Full Partial: Upper Assessment and Plan Assessment Anesthesia Assessment: Anesthesia Plan Discussed Final Anesthetic Review Family History of Problems with Anesthesia: No History of Problems with Anesthesia: No NPO: Yes ASA Class: III Final Preanesthetic Review: No Changes in Pt Med Stat, Meds/Allgs Chart Reviewe d, Consent Obtained/Reviewed and Anes Risks/Benef Reviewed Patient Risk: Intermediate Procedure Risk: Low Anesthetic Plan Anesthetic Plan: TIVA Disposition: Standard PACU
[2025-02-23 08:05] VITALS: BP 133/70; PULSE 62; RESP 14; TEMP 36.6; O2SAT 97; BMI 19.9
[2025-02-23] MEDS: Lactated Ringers 1,000 ML 100 ML IVCONT (08:10)
--- NOTE | 2025-02-23 09:05 | MHC.SHP ---
Pre-Procedural Eval Section A - 24 Hr Update-Section A only Date of Service: 02/23/25 Section B - Complete if H&P > 30 days Chief Complaint: screening Details of Present Illness: History of polyps 6 years ago and her last colonoscopy and wants to have a repeat Relevant Family History (Specify if Yes): No Relevant Social History: None Present Medications: see Short Stay Collaborative assessment Medical History: Significant History (History of DVT, osteoarthritis, COPD) Allergies: Allergies Allergy/AdvReac Type Severity Reaction Status Date / Time azithromycin Allergy Unknown fever Verified 02/23/25 08:02 levofloxacin Allergy Unknown LE pain Verified 02/23/25 08:02 and weakness nitrofurantoin Allergy Unknown fever,park Verified 02/23/25 08:02 celecoxib [From Celebrex] AdvReac Intermediate tinnitus Verified 02/23/25 08:02 Review of Systems Sugical H&P ROS: Negative: Constitution, Respiratory and Gastrointestinal Exam Surgical H&P Exam: Normal: Heart, Normal: Lungs and Normal: Abdomen Plan Diagnosis/Plan: Unchanged I have reviewed the history and physical and performed a pertinent physical examination on my patient. No changes have occurred unless specified. Time Spent With Patient Time: Total time managing care of this patient today ____ minutes.
--- NOTE | 2025-02-23 09:50 | P.OP_ITS ---
Operative Note Operative Note Date of Service: 02/23/25 Narrative: Preop diagnosis: History of polyps Postop diagnosis: Occasional diverticuli, sigmoid, otherwise normal colonoscopy findings Procedure: Colonoscopy Surgeon: Emmanule Zavala MD The patient is an 79 year old female who had polyps anoscopy 6 years ago. She says that she was healthy enough to undergo another colonoscopy and wanted to proceed with this. She understood the technique of the planned procedure as wel l as the risks, benefits, and alternatives. The patient was brought to the operating room and placed in left lateral decubitus position under monitored anesthesia care. A surgical time-out was done. A full digital rectal exam was done and this did not reveal any significant anal lesions. The tip of the Olympus colonoscope was gently introduced through the anal orifice advanced with insufflation all the way to the cecum. The cecum was intubated. The cecum was identified by visualization of the ileocecal valve as well as the appendiceal orifice. The cecal mucosa was unremarkable. The scope was gradually withdrawn with careful examination of the entire colonic mucosa being done with scope withdrawal. The patient had adequate bowel prep so it was unlikely that any lesion may have been missed. There was note of occasional diverticuli in the sigmoid. The colon did seemed tortuous so we had to advance this very gently and slowly. The rectum was reached and there were no lesions seen. The anal canal was unremarkable. The scope was then withdrawn completely with desufflation The patient tolerated procedure well. There were no immediate complications. I would I explained to her that I would not recommend any further colonoscopy from here on in view of her age.
[2025-02-23 09:55] VITALS: BP 122/55; PULSE 57; RESP 12; TEMP 36.4; O2SAT 98
[2025-02-23 10:14] VITALS: BP 115/59; PULSE 65; RESP 18; TEMP 36.4; O2SAT 97
== END 2025-02-23 10:55 | disposition home or self-care (01) ==
PROVIDERS: PCP Internal Medicine; Visit Provider Surgery
PROC: 0DBE8ZZ Excision of Large Intestine, Via Natural or Artificial Opening Endoscopic (ICD-10-PCS; CPT G0105; principal; 2025-02-23 09:00)
DX: Z12.11 Encounter for screening for malignant neoplasm of colon (principal); K57.30 Diverticulosis of large intestine without perforation or abscess without bleeding; Z86.0101 Personal history of adenomatous and serrated colon polyps; E78.00 Pure hypercholesterolemia, unspecified; J44.9 Chronic obstructive pulmonary disease, unspecified; G47.33 Obstructive sleep apnea (adult) (pediatric); Z86.718 Personal history of other venous thrombosis and embolism; Z79.899 Other long term (current) drug therapy; Z79.01 Long term (current) use of anticoagulants; Z79.02 Long term (current) use of antithrombotics/antiplatelets
CPT/HCPCS: G0105; J2003; J2704

== ENCOUNTER → 2025-02-23 07:31 | Outpatient (BNV) | payer MEDICARE, SELFPAY | PROVIDERS: PCP Internal Medicine; Visit Provider Surgery | DX: Z12.11 Encounter for screening for malignant neoplasm of colon (principal); Z86.0100 Personal history of colon polyps, unspecified | CPT/HCPCS: G0105 ==

== ENCOUNTER 2025-03-05 10:45 | Outpatient (REF) | payer MEDICARE, SELFPAY ==
--- NOTE | ~2025-03-05 | US_ITS ---
CLINICAL HISTORY: R79.89 - Other specified abnormal findings of blood chemistry US abdomen complete Comparison: None Findings: The visualized pancreas is normal. The aorta and inferior vena cava are normal caliber. The appearance of the liver suggests fatty infiltration. There is no intrahepatic bile duct dilatation. The common duct is 2.0 mm in diameter. The gallbladder is normal. There is no sonographic Arce sign. The main portal vein is antegrade. The right kidney is 10.7 cm in length. The left kidney is 9.5 cm in length. The spleen is normal. No ascites. IMPRESSION: 1. Hepatic steatosis. This document has been electronically signed by: Kosta Mancera MD on 03/06/2025 10:33:16
--- OUTSIDE RECORDS SUMMARY | 2025-03-05 11:32 | XMS_ITS | Clinical Summary ---
Author Organization 175 [facility] Address [address] [place] [address] Phone Care Team Providers Care Pumper Gager Name Role Phone Kelly Ford MD Primary Care Provider [phone] Allergies Active Allergy Reactions Criticality Noted Date [...] 01/06/2019 Allergic rhinitis 11/05/2017 Asthma 06/06/2017 Bronchiectasis ([facility] V24, [facility] V28) 2016 Pulmonary nodule 12/21/2016 Arthritis 12/13/2016 Gastroesophageal reflux disease 12/13/2016 Osteoporosis 12/13/2016 Overview (12/01/2024): Actonel x 10 yrs, Stopped 2011 Hyperlipidemia 12/13/2016 Encounters Date Type Department Care Team Description 12/23/2024 2:21 PM EDT - 12/23/2024 11:59 PM EDT [facility] [address] [address] Encounter for screening mammogram for [...] Arthritis 12/13/2016 DX:Arthritis Asthma 06/06/2017 DX:Asthma Bronchiectasis ([facility] V24, [facility] V28) 05/13/2017 DX:Bronchiectasis (HCC) Gastroesophageal reflux [...] 2:30 PM EDT Office Visit Pulmonolgy - [address] [place] [id number] Sara Phillips MD [address] [place] [address] [address] [place] [address] Health Maintenance Due Date Last Done Comments [...] year. Mammo Location: [facility], [address] [place] [address], [address], . -------- FINAL REPORT -------- Dictated By: Kaitlin Horner Dictated Date: 12/23/2024 15:43 ET Assigned Physician: Kaitlin Horner Reviewed and Electronically Signed By: Kaitlin Horner Signed Date: 12/23/2024 15:44 ET Workstation ID: [id number] Transcribed By: Self Edit Transcribed Date: 12/23/2024 [...] year. Mammo Location: [facility], [address] [place] [address], [address], . -------- FINAL REPORT -------- Dictated By: Kaitlin Horner Dictated Date: 12/23/2024 15:43 ET Assigned Physician: Kaitlin Horner Reviewed and Electronically Signed By: Kaitlin Horner Signed Date: 12/23/2024 15:44 ET Workstation ID: [id number] Transcribed By: Self Edit Transcribed Date: 12/23/2024 15:43 ET us Self Referral Sppl IMG BI PROCEDURES Final Resul t from Last 3 Months Insurance MEDICARE [facility] Care Teams Pumper Gager Relationship Specialty Start Date End Date Kelly Ford MD [address] [place] [address] [address] [facility] [place] [address] PCP - General Internal Medicine 03/10/19
== END 2025-03-05 10:46 | disposition home or self-care (01) ==
LOC: HO.US 10:45
PROVIDERS: PCP Internal Medicine; Visit Provider Internal Medicine
DX: R79.89 Other specified abnormal findings of blood chemistry (principal)
CPT/HCPCS: 76700

== ENCOUNTER → 2025-03-05 10:47 | Outpatient (BNV) | payer MEDICARE, SELFPAY | PROVIDERS: PCP Internal Medicine; Visit Provider Specialist | DX: K76.0 Fatty (change of) liver, not elsewhere classified (principal) | CPT/HCPCS: 76700 ==

== ENCOUNTER 2025-03-08 12:45 | Outpatient (AMB) | payer MEDICARE, SELFPAY ==
--- NOTE | 2025-03-08 12:49 | A.OFFVIS_ITS ---
Vital Signs 03/08/25 12:50 Height 5 ft 3 in Weight 114 lb BMI 20.2 BP 141/66 H Blood Pressure Location Rt radial Position Sitting Pulse 76 Intake Visit Reasons: S/P colonoscopy Intake Note: Patient here s/p colonoscopy on 02-23-2025. Reports procedure went well. Customer Service Operator Required: No Accompanied by: Self / Same As Patient Allergies azithromycin Allergy (Unknown, Verified 03/08/25 12:49) fever levofloxacin Allergy (Unknown, Verified 03/08/25 12:49) LE pain and weakness nitrofurantoin Allergy (Unknown, Verified 03/08/25 12:49) fever,park celecoxib [From Celebrex] Adverse Reaction (Intermediate, Verified 03/08/25 12:49) tinnitus Medication List - Last Reconciled 03/08/25 by Emmanuel Zavala MD acetaminophen 1,000 mg PO BID PRN albuterol sulfate 90 mcg/actuation 2 puffs inhalation Q6H PRN 90 days apixaban (Eliquis) 1 tablet twice a day fluticasone propion-salmeterol 45-21 mcg/actuation (Advair HFA) inhalation levalbuterol HCl 0.63 mg PO Q4H PRN levalbuterol tartrate 45 mcg/actuation 2 puffs inhalation Q4-6H omeprazole 20 mg PO DAILY quetiapine (Seroquel) 25 mg PO BEDTIME 90 days rosuvastatin 10 mg PO DAILY sumatriptan succinate 100 mg PO DAILY PRN HPI HPI S/P colonoscopy: Details: She underwent colonoscopy for screening last February 23, 2025. She tolerated the procedure well. She currently says she is doing well and denies significant complaints. [facility] Medical History LFT elevation Cough History of Pseudomonas pneumonia History of pulmonary embolism COPD (chronic obstructive pulmonary disease) Thyroid nodule Migraine Hypercholesterolemia Obstructive sleep apnea Bronchiectasis Surgical History History of cataract surgery History of bronchoscopy History of colonoscopy Family History Father No problems noted. Mother No problems noted. Sister No problems noted. Son No problems noted. Family/Other Heart disease Social History Housing: House Are you a primary career and technology education teacher to a significant other at home: No Do you presently have visiting nurse or other home services: No Alcohol intake: former Patient Tobacco Use Status: Never used Tobacco Tobacco use type: Cigarette e-Cigarette/Vaping Use: Never Used Second Hand Smoke Exposure: Yes service: No Current occupational status: retired Cognitive needs: No Hearing needs: No Vision needs: Yes Review of Systems Const Denies chills and Denies fever(s) Card Denies chest pain Resp Denies cough GI Denies abdominal pain Physical Exam Vital Signs: Last Vital Signs Pulse 76 03/08/25 12:50 BP 141/66 H 03/08/25 12:50 BMI result Body Mass Index 20.2 Const Other: Walks with a cane General: comfortable and no acute distress Resp Effort & Inspection: normal respiratory effort GI Palpation (GI): Soft to palpation, not firm and nontender Assessment & Plan Assessment & Plan (1) Colon cancer screening: Code(s): Z12.11 - Encounter for screening for malignant neoplasm of colon Category: Medical Plan: Status post colonoscopy. Findings included mild sigmoid diverticulosis but there were no polyps or any lesions. I told her that this will be her last colonoscopy based on her age She was advised in the benefits of fiber supplementation in view of her chronic constipation. She can otherwise follow up on a p.r.n. basis. Coding Level of Care Code Est Pt Level 2 (50068) Diagnoses Colon cancer screening Z12.11
[2025-03-08 12:50] VITALS: BP 141/66; PULSE 76; BMI 20.2
--- OUTSIDE RECORDS SUMMARY | 2025-03-08 13:44 | XMS_ITS | Clinical Summary ---
Author Organization 175 [facility] Address [address] [place] [address] Phone Care Team Providers Care Lead Qa Analyst Name Role Phone Kelly Ford MD Primary Care Provider [phone] Allergies Active Allergy Reactions Criticality Noted Date [...] 01/06/2019 Allergic rhinitis 11/05/2017 Asthma 06/06/2017 Bronchiectasis ([facility] V24, [facility] V28) 2016 Pulmonary nodule 12/21/2016 Arthritis 12/13/2016 Gastroesophageal reflux disease 12/13/2016 Osteoporosis 12/13/2016 Overview (12/01/2024): Actonel x 10 yrs, Stopped 2011 Hyperlipidemia 12/13/2016 Encounters Date Type Department Care Team Description 12/23/2024 2:21 PM EDT - 12/23/2024 11:59 PM EDT [facility] [address] [phone] Encounter for screening mammogram for [...] HISTORICAL COLONOSCOPY UPPER GASTROINTESTINAL ENDOSCOPY 2012 PROCEDURE: CO UPPER GI ENDOSCOPY PERFORMED; COMMENT: Dr Powers OTHER SURGICAL HISTORY 03/2017 PROCEDURE: CO BRNCHSC INCL FLUOR GDNCE DX W/CELL WASHG SPX; COMMENT: Pseudomonas HYSTERECTOMY Medical History Medical History Date Comments Allergic rhinitis 11/05/2017 DX:Allergic rh initis Arthritis 12/13/2016 DX:Arthritis Asthma 06/06/2017 DX:Asthma Bronchiectasis ([facility] V24, [facility] V28) 05/13/2017 DX:Bronchiectasis (HCC) Gastroesophageal reflux [...] 2:30 PM EDT Office Visit Pulmonolgy - [address] [place] [phone] Sara Phillips MD [address] [place] [address] [address] [place] [address] Health Maintenance Due Date Last Done Comments [...] year. Mammo Location: [facility], [address] [place] [address], [address], . -------- FINAL REPORT -------- Dictated By: Kaitlin Horner Dictated Date: 12/23/2024 15:43 ET Assigned Physician: Kaitlin Horner Reviewed and Electronically Signed By: Kaitlin Horner Signed Date: 12/23/2024 15:44 ET Workstation ID: [id number] Transcribed By: Self Edit Transcribed Date: 12/23/2024 [...] year. Mammo Location: [facility], [address] [place] [address], [address], . -------- FINAL REPORT -------- Dictated By: Kaitlin Horner Dictated Date: 12/23/2024 15:43 ET Assigned Physician: Kaitlin Horner Reviewed and Electronically Signed By: Kaitlin Horner Signed Date: 12/23/2024 15:44 ET Workstation ID: [id number] Transcribed By: Self Edit Transcribed Date: 12/23/2024 15:43 ET us Self Referral Sppl IMG BI PROCEDURES Final Resul t from Last 3 Months Insurance MEDICARE [facility] Care Teams Lead Qa Analyst Relationship Specialty Start Date End Date Kelly Ford MD [address] [place] [address] [address] [facility] [place] [address] PCP - General Internal Medicine 03/10/19
== END 2025-03-08 13:15 | disposition home or self-care (01) ==
LOC: HO.HGS 12:46
PROVIDERS: PCP Internal Medicine; Visit Provider Surgery
DX: Z12.11 Encounter for screening for malignant neoplasm of colon (principal)
CPT/HCPCS: 99212

== ENCOUNTER → 2025-03-08 12:45 | Outpatient (BNVA) | payer MEDICARE, SELFPAY | PROVIDERS: PCP Internal Medicine; Visit Provider Surgery | DX: Z01.818 Encounter for other preprocedural examination (principal); K59.09 Other constipation | CPT/HCPCS: 99212 ==

== ENCOUNTER 2025-09-08 12:56 | Outpatient (AMB) | payer MEDICARE, SELFPAY ==
[2025-09-08 13:06] VITALS: BP 120/68; PULSE 65; O2SAT 98; BMI 20.2
--- NOTE | 2025-09-08 13:06 | A.OFFPC_ITS ---
Vital Signs 09/08/25 13:06 Height 5 ft 3 in Weight 114 lb BMI 20.2 BP 120/68 Blood Pressure Location Lt brachial Position Sitting Pulse 65 Pulse Source Pulse Oximeter Pulse Oximetry (%) 98 Oxygen Delivery Method Room Air Intake Visit Reasons: Follow Up Allergies azithromycin Allergy (Unknown, Verified 09/08/25 13:06) fever levofloxacin Allergy (Unknown, Verified 09/08/25 13:06) LE pain and weakness nitrofurantoin Allergy (Unknown, Verified 09/08/25 13:06) fever,park celecoxib (From Celebrex) Adverse Reaction (Intermediate, Verified 09/08/25 13:06) tinnitus Medication List - Last Reconciled 09/08/25 by Kelly Ford MD acetaminophen 1,000 mg PO BID PRN albuterol sulfate 90 mcg/actuation 2 puffs inhalation Q6H PRN 90 days apixaban (Eliquis) 1 tablet twice a day fluticasone propion-salmeterol 45-21 mcg/actuation (Advair HFA) inhalation levalbuterol HCl 0.63 mg PO Q4H PRN levalbuterol tartrate 45 mcg/actuation 2 puffs inhalation Q4-6H omeprazole 20 mg PO DAILY quetiapine (Seroquel) 25 mg PO BEDTIME 90 days rosuvastatin 10 mg PO DAILY sumatriptan succinate 100 mg PO DAILY PRN Tobacco use date assessed: 01/14/25 Fall risk assessment: No Falls in past year Last assessed Fall Risk: 09/08/25 Dental Screening Dental Screen Date: 01/14/25 HPI HPI Comments History of Present Illness Details History of Present Illness The patient is an 80-year-old individual presenting for a follow-up visit with a history of osteoporosis, hypercholesterolemia, COPD, moderate persistent asthma, generalized anxiety disorder, lumbar degenerative disc disease, and hepatic steatosis. The patient also has a history of a pulmonary embolism in 2010 and is on anticoagulation. For asthma management, the patient was seen by pulmonary in March 2025 and uses Advair and albuterol as needed. A CT scan in May 2021 revealed stable bila teral upper lobe pulmonary nodules. A colonoscopy in February 2025 showed mild diverticulosis, and no further colonoscopies are required. An abdominal ultrasound was performed due to elevated liver enzymes, leading to a diagnosis of hepatic steatosis. The patient experienced right shoulder pain and was evaluated in January, with X- rays showing mild degenerative changes. Due to palpitations, a Holter monitor was done in November 2024, which revealed frequent PVCs and normal sinus rhythm with no significant pauses. The patient's symptoms were noted to correlate with the PVCs. Blood work from January 2022 showed a normal blood count without anemia, normal electrolytes, and normal renal function. Blood sugar was mildly elevated at 105, LDL cholesterol was 130, liver function tests showed an elevation, and thyroid function was normal. Health Maintenance The patient will proceed with a mammogram scheduled for December 2024. Social History - Exercise: Encouraged to exercise. Results - Labs (January 2022): Blood count normal with no anemia, normal electrolytes, normal renal function, blood sugar mildly elevated at 105, LDL cholesterol 130, elevated liver function, and normal thyroid function. - Imaging: Bone density scan (September 07) for osteoporosis. - Imaging: CAT scan (May 2021) showed stable bilateral upper lobe pulmonary nodules. - Imaging: Abdominal ultrasound confirme d hepatic steatosis. - Imaging: Right shoulder X-ray showed m ild degenerative changes. - Tests and Diagnostics: Colonoscopy (2024) showed mild diverticulosis. - Tests and Diagnostics: Holter monitor (November 2024) for palpitations showed frequent PVCs, normal sinus rhythm, and no significant pauses. [facility] Medical History (Updated 09/08/25 @ 13:37 by Kelly Ford MD) Colon cancer screening LFT elevation Cough History of Pseudomonas pneumonia History of pulmonary embolism COPD (chronic obstructive pulmonary disease) Thyroid nodule Migraine Hypercholesterolemia Obstructive sleep apnea Bronchiectasis Surgical History History of cataract surgery History of bronchoscopy History of colonoscopy Family History Father No problems noted. Mother No problems noted. Sister No problems noted. Son No problems noted. Family/Other Heart disease Social History Housing: House Are you a primary career technical education teacher to a significant other at home: No Do you presently have visiting nurse or other home services: No Alcohol intake: former Patient Tobacco Use Status: Never used Tobacco Tobacco use type: Cigarette e-Cigarette/Vaping Use: Never Used Second Hand Smoke Exposure: Yes service: No Current occupational status: retired Cognitive needs: No Hearing needs: No Vision needs: Yes Questionnaire Thrive Questionnaire Date Thrive assessed: 01/14/25 LISA-7 AMB Questionnaire LISA-7 Date LISA - 7 assessed: 01/14/25 Source: Developed by Drs. Vincenzo Singh, Indira Dhaliwal, Pedro Luis Zhang and colleagues, with an educational lux from [employer]. Review of Systems Narrative Review of Systems - Cardiovascular: Reports a history of palpitations. - Musculoskeletal: Reports a history of right shoulder pain. Physical exam (Primary Care) Vital Signs: Last Vital Signs Pulse 65 09/08/25 13:06 BP 120/68 09/08/25 13:06 Pulse Ox 98 09/08/25 13:06 Oxygen Delivery Method Room Air 09/08/25 13:06 BMI result Body Mass Index 20.2 Tobacco/Smoking Status: Tobacco use Status Tobacco use date assessed 01/14/25 09/08/25 13:13 Patient Tobacco Use Status Never used Tobacco 09/08/25 13:13 Tobacco use type Cigarette 09/08/25 13:13 e-Cigarette/Vaping Use Never Used 09/08/25 13:13 Thrive Assessment: Date of Thrive Assessment Date Thrive assessed 01/14/25 09/08/25 13:13 Narrative Physical Exam Const General: alert; No acute distress Eyes Conjunctivae: conjunctivae normal Resp Auscultation: clear to auscultation bilaterally Cardio Rate: regular rate Rhythm: regular rhythm GI Inspection: Yes normal to inspection Extrem General: Yes normal to inspection and No edema Coding Level of Care Code Est Pt Level 4 (56377) Diagnoses Palpitation R00.2 Hypercholesterolemia E78.00 Generalized anxiety disorder F41.1 History of pulmonary embolism Z86.711 Age-related osteoporosis without current pathological fracture M81.0 Osteoporosis type: age-related Presence of current pathological fracture: without current pathological fracture Hepatic steatosis K76.0 Moderate persistent asthma J45.40 Low back pain M54.50 Assessment & Plan Assessment & Plan (1) Palpitation: Code(s): R00.2 - Palpitations Category: Medical Plan: Holter done showing PVCs discussed patient regarding PVCs (2) Hypercholesterolemia: Code(s): E78.00 - Pure hypercholesterolemia, unspecified Category: Medical Plan: Avoid fried foods, chicken skin, eggs, butter margarine, pastries and meat. Be it pork or beef they have a lot of cholesterol LDL goal of less than 130 and triglyceride of less than 150 (3) Generalized anxiety disorder: Comment: decline counselling, doing good Code(s): F41.1 - Generalized anxiety disorder Category: Medical Plan: Patient on Seroquel (4) History of pulmonary embolism: Comment: Two thousand eleven Code(s): Z86.711 - Personal history of pulmonary embolism Category: Medical Plan: Continuing with anticoagulation on Eliquis (5) Osteoporosis: Comment: September 2018, September 2020, 2021 Code(s): M81.0 - Age-related osteoporosis without current pathological fracture Category: Medical Qualifiers: Osteoporosis type: age-related Presence of current pathological fracture: without current pathological fracture Qualified Code(s): M81.0 - Age- related osteoporosis without current pathological fracture Plan: Discussed about calcium and vitamin-D (6) Hepatic steatosis: Comment: February 2025 Code(s): K76.0 - Fatty (change of) liver, not elsewhere classified Category: Medical Plan: Low-fat diet and exercise (7) Moderate persistent asthma: Code(s): J45.40 - Moderate persistent asthma, uncomplicated Category: Medical Plan: Patient follows up with Pulmonary on albuterol and Advair (8) Low back pain: Comment: epidural 2024 [facility] pain mgmt, 05/2025 Si joint, injection, thenu manikantin Code(s): M54.50 - Low back pain, unspecified Category: Medical Plan Plan Patient was informed and verbally consented to the use of an ambient scribe for clinic note documentation during this visit. 1. Hypercholesterolemia The plan is to target an LDL goal of less than 130 mg/dL and a triglyceride goal of less than 150 mg/dL. A low-fat diet and exercise were recommended. 2. Asthma And Copd The patient will continue to follow up with pulmonary care. Continue use of albuterol and Advair as prescribed. 3. History Of Pulmonary Embolism Continue anticoagulation with Eliquis. 4. Osteoporosis Discussed the importance of and recommendation to continue calcium and vitamin D supplementation. 5. Premature Ventricular Contractions The Holter monitor results showed frequent PVCs. Discussed with the patient the benign nature of the PVCs. 6. Generalized Anxiety Disorder Continue Seroquel as prescribed. Discussion Notes I reviewed the recent Holter monitor results with the patient, explaining that the palpitations are caused by frequent PVCs, which are benign. We discussed the cholesterol management plan, setting an LDL goal of less than 130 mg/dL and a triglyceride goal of less than 150 mg/dL. I advised the patient to continue anticoagulation with Eliquis. We also discussed the importance of calcium and vitamin D for osteoporosis management, and I recommended a low-fat diet and exercise for overall health. The patient will continue with pulmonary follow-up and the current regimen of albuterol and Advair. Patient Instructions - Continue taking your medications as prescribed, including Eliquis, Seroquel, Advair, and albuterol. - Your heart palpitations are caused by extra heartbeats called PVCs, which are not dangerous. - Continue to follow up with your lung doctor for your asthma and COPD. - Remember to take calcium and vitamin D supplements for your bone health. - Follow a low-fat diet and try to get regular exercise. - Please go for your scheduled mammogram in December 2024. - You do not need any further colonoscopies at this time. Orders: Orders Lipid Panel Today E78.00 - Pure hypercholesterolemia, unspecified, K76.0 - Fatty (change of) liver, not elsewhere classified Hepatitis B,C Profile Today K76.0 - Fatty (change of) liver, not elsewhere classified, R79.89 - Other specified abnormal findings of blood chemistry Comprehensive Met. Panel Today K76.0 - Fatty (change of) liver, not elsewhere classified Liver Panel Today K76.0 - Fatty (change of) liver, not elsewhere classified, R79.89 - Other specified abnormal findings of blood chemistry
--- OUTSIDE RECORDS SUMMARY | 2025-09-08 15:21 | XMS_ITS | Clinical Summary ---
Author Organization [facility] Address [address] [address] Phone Care Team Providers Care Spa Experience Coordinator Name Role Phone Kelly oFrd MD Primary Care Provider Allergies Active Allergy Reactions Criticality Noted Date Comments Atorvastatin 01/06/2019 Azithromycin 05/07/2020 Celecoxib 04/08/2025 Levofloxacin 05/07/2020 Mold 12/13/2016 Nitrofurantoin 05/07/2020 Other 12/13/2016 Dust Medications omeprazole (PRILOSEC) 20 MG capsule omeprazole 20 mg capsule,delayed release Active rosuvastatin (CRESTOR) 10 MG tablet daily. Active amitriptyline (ELAVIL) 10 MG tablet 04/21/20 20 Active montelukast (SINGULAIR) 10 mg tablet 05/02/20 20 Active ADVAIR DISKUS 250-50 mcg/dose DISKUS 04/20/20 20 Active JANTOVEN 1 mg tablet 03/29/20 20 Active SUMAtriptan (IMITREX) 50 MG tablet 09/27/20 20 Active JANTOVEN 2 mg tablet 08/23/20 20 Active SUMAtriptan (IMITREX) 100 MG tablet 11/02/19 24 Active ADVAIR HFA 45-21 mcg/actuation inhaler 12/04/19 24 Active QUEtiapine (SEROQUEL) 25 MG tablet 11/14/19 24 Active fluticasone propion-salmeter oL (ADVAIR HFA) 45-21 mcg/actuation inhaler 2 inhalation, 0 Refills, Maintenance, 12/15/24 1:54:00 PM EDT, Partial fill upon patient request if the prescription is for a schedule II opioid drug. 12/16/19 25 Active omega-3 acid ethyl esters (LOVAZA) 1 gram capsule Take 1 Cap by mouth daily. Active simvastatin (ZOCOR) 40 MG tablet Take 40 mg by mouth nightly at bedtime. 12/16/19 25 Active albuterol 90 mcg/actuation inhaler Inhale 2 puffs into the lungs every 6 (six) hours as needed. 03/24/20 25 026 Active apixaban (ELIQUIS) 5 mg tablet Take 5 mg by mouth 2 (two) times a day. Active enoxaparin (LOVENOX) 60 mg/0.6 mL Syrg subcutaneous syringe INJECT 50MG 0.5ML) SUBCUTANEOUSLY EVERY 12 HOURS 01/21/20 25 Active Active Problems Problem Noted Date Diagnosed Date Hyperlipidemia 06/16/2020 GERD (gastroesophageal reflux disease) 0 Bronchiectasis 06/16/2020 Other asthma 06/16/2020 Osteoporosis 06/16/2020 IBS (irritable bowel syndrome) 06/16/2020 Urinary tract infectious disease 05/09/2020 Immunizations Immunization Administration Dates Next Due Tdap 05/09/2020 Social History Tobacco Use Types Packs/Day Years Used Date Smoking Tobacco: Never Smokeless Tobacco: Never Tobacco Cessation:Counseling Given: Not Answered Alcohol Use Standard Drinks/Week Comments Yes 0 (1 standard drink = 0.6 oz pur e alcohol) occasionally Education Answer Date Recorded Are you interested in more education? Not on dharmesh e 02/01/2023 Are you concerned about learning? Not on file 02/01/2023 No 02/01/2023 No 02/01/2023 Digital Access Answer Date Recorded No 03/02/2023 No 03/02/2023 Reliable internet access at home? Not on file 03/02/2023 Device with a working camera? Not on file Comments Unknown Sex and Gender Information Value Date Recorded Sex Assigned at Not on file Legal Sex Female 12:54 PM EDT Gender Identity Not on file Sexual Orientation Not on file Last Filed Vital Signs Vital Sign Reading Time Taken Comments Blood Pressure 131/74 04/08/2025 3:23 PM EDT Pulse 78 04/08/2025 3:23 PM EDT Temperature 36.9 C (98.4 F) 04/08/2025 3:23 PM EDT Respiratory Rate 16 04/08/2025 3:23 PM EDT Oxygen Saturation 98% 04/08/2025 3:23 PM EDT Inhaled Oxygen Concentration - - Weight 50.8 kg (112 lb) 04/08/2025 3:23 PM EDT Height 160 cm (5' 3 ) 04/08/2025 3:23 PM EDT Body Mass Index 19.84 04/08/2025 3:23 PM EDT Plan of Treatment Health Maintenance Due Date Last Done Comments CREATININE LEVEL 1943 DEPRESSION SCREENING 1955 OSTEOPOROSIS SCREENING INITIAL (ONE-TIME) 2008 RSV VACCINE (1 - 1-dose 75+ series) 2018 INFLUENZA VACCINE (#1) 2025 , 07/24/2023, 08/01/2022, Additional history exists COVID-19 VACCINE ( season) 2025 09/17/2021, 12/20/2020, 11/22/2020 Adult Td,Tdap Booster 05/09/2030 05/09/2020 PNEUMOCOCCAL VACCINES (50+ years) Completed 08/08/2017, 11/28/2016, 10/22/2005 ZOSTER VACCINES Completed 11/30/2019, 08/04/2019 HEPATITIS A VACCINES Aged Out No long er eligible based on patient's age to complete this topic HIB VACCINES Aged Out No longer eligi ble based on patient's age to complete this topic MENINGOCOCCAL VACCINES (ACWY) Aged Out No longer eligible based on patient's age to complete this topic MENINGOCOCCAL VACCINES (B) Aged Out N o longer eligible based on patient's age to complete this topic Medical Devices Not on file Insurance MEDICARE PART A & B [employer] SUPPLEMENT MEDICARE PART A & B [employer] SUPPLEMENT MEDICARE PART A & B [employer] SUPPLEMENT MEDICARE PART A & B [employer] SUPPLEMENT MEDICARE PART A & B [employer] [place] [address] MEDICARE PART A & B [employer] SUPPLEMENT MEDICARE PART A & B [employer] SUPPLEMENT MEDICARE PART A & B [employer] SUPPLEMENT MEDICARE PART A & B [employer] SUPPLEMENT Care Teams Spa Experience Coordinator Relationship Specialty Start Date End Date Kelly Ford MD [address] [place] [phone] PCP - General Internal Medicine 05/07/20 Additional Source Comments The information contained in this document represents components of the legal health record. It is not the complete legal health record.[facility]
--- OUTSIDE RECORDS SUMMARY | 2025-09-08 15:21 | XMS_ITS | Clinical Summary ---
Author Organization [address] [facility] Address [address] [place] [address] Phone Care Team Providers Care Process Consultant Name Role Phone Kelly Ford MD Primary Care Provider [phone] Allergies Active Allergy Reactions Criticality Noted Date [...] day. Do not change dietary habits. Active apixaban (ELIQUIS) 5 mg tablet Take 1 tablet (5 mg total) by mouth 2 (two) times a day. Active albuterol HFA (PROAIR HFA ; PROVENTIL HFA ; VENTOLIN HFA) 90 mcg/actuation inhaler Inhale 2 puffs by mouth every 6 (six) hours if needed for wheezing. 6.7 g 2 5 03/24/20 26 Active Active Problems Problem Noted Date Diagnosed Date Snoring 04/17/2021 Overview (12/01/2024): 12/2020 Home Sleep Study did not reveal sleep apnea or nocturnal hypoxia. 02/2022 diagnostic polysomnogram- snoring but not sleep apnea;+ PLMD. Migraine 01/06/2019 Allergic rhinitis 11/05/2017 Asthma 06/06/2017 Bronchiectasis ([facility] V24, [facility] V28) 2016 Pulmonary nodule 12/21/2016 Arthritis 12/13/2016 Gastroesophageal reflux disease 12/13/2016 Osteoporosis 12/13/2016 Overview (12/01/2024): Actonel x 10 yrs, Stopped 2011 Hyperlipidemia 12/13/2016 Immunizations Immunization Administration Dates Next Due Influenza trivalent, 0.5mL [...] HISTORICAL COLONOSCOPY UPPER GASTROINTESTINAL ENDOSCOPY 2012 PROCEDURE: [place] UPPER GI ENDOSCOPY PERFORMED; COMMENT: Dr Powers OTHER SURGICAL HISTORY 03/2017 PROCEDURE: [facility] DX W/CELL WASHG SPX; COMMENT: Pseudomonas HYSTERECTOMY Medical History Medical History Date Comments Allergic rhinitis 11/05/2017 DX:Allergic rh initis Arthritis 12/13/2016 DX:Arthritis Asthma 06/06/2017 DX:Asthma Bronchiectasis (CMS/HCC V24, CMS/HCC V28) 05/13/2017 DX:Bronchiectasis (HCC) Gastroesophageal reflux disease [...] Not Answered Alcohol Use Standard Drinks/Week Comments Not Currently [...] Sign Reading Time Taken Comments Blood Pressure 120/60 03/24/2025 2:55 PM EDT Pulse 67 03/24/2025 2:55 PM EDT Temperature 36.2 C (97.1 F) 03/24/2025 2:55 PM EDT Respiratory Rate 16 03/24/2025 2:55 PM EDT Oxygen Saturation 98% 03/24/2025 2:55 PM EDT Inhaled Oxygen Concentration - - Weight 52.2 kg (115 lb) 03/24/2025 2:55 PM EDT Height 160 cm (5' 3 ) 03/24/2025 2:55 PM EDT Body Mass Index 20.37 03/24/2025 2:55 PM EDT Plan of Treatment Upcoming Encounters Date Type Department Care Team (Late st Contact Info) Description 03/30/2026 2:30 PM EDT Office Visit Pulmonology - [place] [address] [place] [address] Sara Phillips MD [address] [place] [phone] Health Maintenance Due Date Last Done Comments RSV Immunization Adult Patients (1 - 1-dose 75+ series) 2018 Cholesterol Screening (Lipid Panel) 09/15/2022 Falls Risk Assessment 09/15/2022 Medicare Annual Wellness Visit 09/15/2022 Osteoporosis Screening (Bone Density Screening) 09/15/2022 Social Influencers of Health Screening 09/15/2022 Depression Screening 10/07/2024 COVID-19 Vaccine ( season) 2025 09/17/2021, 12/20/2020, 11/22/2020 Influenza Vaccine (#1) 2025 4, 07/24/2023, 08/01/2022, Additional history exists DTaP,Tdap,and Td Vaccines (2 - Td or Tdap) 05/09/2030 05/09/2020 Pneumococcal Vaccine: 50+ Years Completed 08/08/2017, 11/28/2016, 10/22/2005 Zoster Vaccines Completed 11/30/2019, 08/04/2019 HIB Vaccines Aged Out No longer eligi [...] on patient's age to complete this topic Insurance MEDICARE [facility] Care Teams Process Consultant Relationship Specialty Start Date End Date Kelly Ford MD [address] [place] [address] [address] [facility] [place] [address] PCP - General Internal Medicine 03/10/19
== END 2025-09-08 13:46 | disposition home or self-care (01) ==
LOC: HO.HMCH 12:56
PROVIDERS: PCP Internal Medicine; Visit Provider Internal Medicine
DX: R00.2 Palpitations (principal); E78.00 Pure hypercholesterolemia, unspecified; F41.1 Generalized anxiety disorder; Z86.711 Personal history of pulmonary embolism; M81.0 Age-related osteoporosis without current pathological fracture; K76.0 Fatty (change of) liver, not elsewhere classified; J45.40 Moderate persistent asthma, uncomplicated; M54.50 Low back pain, unspecified

== ENCOUNTER → 2025-09-08 12:56 | Outpatient (BNVA) | payer MEDICARE, SELFPAY | PROVIDERS: PCP Internal Medicine; Visit Provider Internal Medicine | DX: R00.2 Palpitations (principal); E78.00 Pure hypercholesterolemia, unspecified; F41.1 Generalized anxiety disorder; M81.0 Age-related osteoporosis without current pathological fracture; K76.0 Fatty (change of) liver, not elsewhere classified; J45.40 Moderate persistent asthma, uncomplicated; M54.50 Low back pain, unspecified; Z86.711 Personal history of pulmonary embolism | CPT/HCPCS: 99212 ==

== ENCOUNTER 2025-09-13 10:34 | Outpatient (REF) | payer MEDICARE, SELFPAY ==
[2025-09-13 10:51] LABS: MANUAL DIFF FLAG NO
[2025-09-13 11:17] LABS: Hematocrit 40.6 % (37.0-47.0); Hemoglobin 13.4 g/dl (12.0-16.0); Imm Gran Abs Auto 0.01 X10*3/uL (0.00-0.03); Imm Gran Pct Auto 0.2 % (0.0-0.4); Lymphocytes Absolute Auto 1.7 X10*3/uL (1.2-4.9); Mean Corpuscular HGB Conc 33.0 g/dl (31.0-35.0); Mean Corpuscular Hemoglobin 30.8 pg (27.0-33.0); Mean Corpuscular Volume 93.3 fL (80.0-98.0); NRBC Abs Auto 0.000 X10*3/uL (0.0-0.012); NRBC Pct Auto 0.0 /100WBC (0.0-0.2); Platelet Count 327 X10*3/uL (160-400); Red Blood Count 4.35 X10*6/uL (4.20-5.50); White Blood Count 5.7 X10*3/uL (4.8-10.8)
[2025-09-13 11:51] LABS: Alanine Aminotransferase 26 U/L (0-31); Albumin Level 4.3 g/dL (3.5-5.0); Alkaline Phosphatase 73 U/L (39-117); Anion Gap 14 (12-20); Aspartate Amino Transferase 29 U/L (5-31); Blood Urea Nitrogen 19 mg/dL (9-16); Calcium 9.7 mg/dL (8.4-10.2); Carbon Dioxide 25 mmol/L (22-29); Chloride 109 mmol/L (96-108); Cholesterol 196 mg/dL (<200); Estimated Glomerular Filt Rate > 60; HDL Cholesterol 75 mg/dL (>40); Potassium 3.9 mmol/L (3.3-5.1); Sodium 144 mmol/L (135-145); Total Protein 7.1 g/dL (6.5-8.0); Triglycerides 58 mg/dL (<150)
[2025-09-13 12:31] LABS: HBS Num1 30.18 mIU/mL (0-7.99); HBc Num1 0.10 S/CO (0.00-0.79); HBsAGNum1 0.35 S/CO (0.00-0.99); Hepatitis B Surface Antigen Negative (Negative); ~HepC Num1 0.33 S/CO (0.00-0.79); ~Hepatitis B Surface Antibody REACTIVE (Nonreactive); ~Hepatitis C Antibody Nonreactive (Nonreactive)
[2025-09-13 14:03] LABS: Folate 12.5 ng/mL (> or = 4.0); Vitamin B12 684 pg/mL (200-900)
--- OUTSIDE RECORDS SUMMARY | 2025-09-13 17:39 | XMS_ITS | Clinical Summary ---
Author Organization [facility] Address [address] [address] Phone Care Team Providers Care Textile Machinery Instructor Name Role Phone Kelly Ford MD Primary Care Provider [phone] Allergies Active Allergy Reactions Criticality Noted Date [...] file Insurance MEDICARE PART A & B [employer] MEDEX SUPPLEMENT MEDICARE PART A & B [employer] MED[employer] SUPPLEMENT MEDICARE PART A & B [employer] MEDEX SUPPLEMENT MEDICARE PART A & B [employer] MEDEX SUPPLEMENT MEDICARE PART A & B [employer] [place] [address] MEDICARE PART A & B [employer] MEDEX SUPPLEMENT MEDICARE PART A & B [employer] MEDEX SUPPLEMENT MEDICARE PART A & B [employer] MEDEX SUPPLEMENT MEDICARE PART A & B [employer] MEDEX SUPPLEMENT Care Teams Textile Machinery Instructor Relationship Specialty Start Date End Date Kelly Ford MD [address] [place] [phone] PCP - General Internal Medicine 05/07/20 Additional Source Comments The information contained in this document represents components of the legal health record. It is not the complete legal health record.[facility]
== END 2025-09-13 10:35 | disposition home or self-care (01) ==
LOC: HO.LAB 10:34
PROVIDERS: PCP Internal Medicine; Visit Provider Internal Medicine
DX: E53.8 Deficiency of other specified B group vitamins (principal); E78.00 Pure hypercholesterolemia, unspecified; K76.0 Fatty (change of) liver, not elsewhere classified; R79.89 Other specified abnormal findings of blood chemistry
CPT/HCPCS: 36415; 80053; 80061; 82248; 82607; 82746; 85025; 86704; 86706; 86803; 87340